=== PATIENT | female | born 1950 | race Caucasian/White ===

== ENCOUNTER 2024-02-25 23:57 | Emergency (ER) | payer OTHER ==
[~2024-02-25] VITALS: Ht 157.5 cm; Wt 75.7 kg
[2024-02-26] MEDS: 0.9%NACL 1000ML 1,000 ML IV ONE (00:06)
[2024-02-26 00:29] VITALS: TEMP 98.8
[2024-02-26 00:39] LABS: BASOPHILS # (AUTO) 0.07 K/uL (0.00-0.20); BASOPHILS % (AUTO) 0.9 % (0.0-5.0); EOSINOPHILS # (AUTO) 0.51 K/uL (0.00-0.70); EOSINOPHILS % (AUTO) 6.5 % (0.0-8.0); IMMATURE GRANULOCYTE ABSOLUTE 0.01 K/uL (0-1); LYMPHOCYTES % (AUTO) 24.9 % (21.0-51.0); MEAN CORPUSCULAR HEMOGLOBIN 26.8 pg (27.0-33.0); MEAN CORPUSCULAR HGB CONC 31.4 g/dL (32.0-36.0); MEAN CORPUSCULAR VOLUME 85.3 fL (79-99); MONOCYTES # (AUTO) 0.7 K/uL (0.1-1.0); MONOCYTES % (AUTO) 9.1 % (3.0-13.0); NEUTROPHILS # (AUTO) 4.6 K/uL (1.8-7.7); NEUTROPHILS % (AUTO) 58.5 % (40.0-77.0); PLATELET COUNT (AUTO) 219 K/uL (130-400); RED CELL DISTRIBUTION WIDTH 15.9 % (11.0-15.5); WHITE BLOOD COUNT (AUTO) 7.8 K/uL (4.8-10.8)
[2024-02-26 00:43] LABS: CREATININE 1.2 mg/dL (0.5-1.0); POTASSIUM 3.8 mmol/L (3.5-5.1)
[2024-02-26] MEDS: INSULIN humuLIN R 100 UNIT/ML 3ML IV ONE (01:17)
[2024-02-26 03:49] VITALS: BP 125/62; PULSE 72; RESP 18; O2SAT 99
== END 2024-02-26 03:51 ==
LOC: EDH 23:57
DX: E11.65 Type 2 diabetes mellitus with hyperglycemia (principal); D64.9 Anemia, unspecified; E87.1 Hypo-osmolality and hyponatremia; E87.8 Other disorders of electrolyte and fluid balance, not elsewhere classified; E03.9 Hypothyroidism, unspecified; I10 Essential (primary) hypertension
CPT/HCPCS: 99284; 80048; 85025; 82948 ×2; 36415; 96374; 96361; J1815; J7030

== ENCOUNTER 2025-01-24 13:08 | Inpatient (IN) | payer OTHER ==
[~2025-01-24] VITALS: Ht 162.6 cm; Wt 84.4 kg
[~2025-01-24 13:08] MED LIST: AMLO-257 PO; ATOR40TA69 PO; CLOP75TA32 PO; GABA-529 PO; INSU100I24 SQ; INSU500V SQ; LEVO50TA11 PO; METF-1150 PO; MONT-39 PO; NITR100C4 PO
[2025-01-24] MEDS ORDERED: 0.9%NACL 1000ML 1,000 ML IV SCH (13:30)
[2025-01-24] MEDS: 0.9%NACL 1000ML 1,000 ML IV ONE ×2 (13:31→15:03)
[2025-01-24 13:44] LABS: IMMATURE GRANULOCYTE ABSOLUTE 0.01 K/uL (0-1); NUCLEATED RED BLOOD CELLS 0.0 % (0.0-0.19); PLATELET COUNT (AUTO) 162 K/uL (130-400); RED BLOOD CELL COUNT(AUTO) 4.31 MIL/uL (4.00-5.50); RED CELL DISTRIBUTION WIDTH 19.2 % (11.0-15.5); WHITE BLOOD COUNT (AUTO) 4.5 K/uL (4.8-10.8)
[2025-01-24 13:55] LABS: INR 0.97 (0.85-1.15)
[2025-01-24 14:05] LABS: ASPARTATE AMINOTRANSFERASE 25.0 U/L (10-37); CREATINE KINASE, TOTAL 96.0 U/L (21-232); GLUCOSE,RANDOM 153.0 mg/dL (70-105); SODIUM SERUM 130.0 mmol/L (136-145); TOTAL PROTEIN, SERUM 6.7 g/dL (6.0-8.3)
[2025-01-24 14:19] LABS: UREA NITROGEN, BLOOD 42.0 mg/dL (7-18)
[2025-01-24 14:20] LABS: CREATININE 2.0 mg/dL (0.5-1.0); GLOMERULAR FILTR. RATE CALC 26.0 mL/min (>90)
--- NOTE | 2025-01-24 14:35 | EKG ---
[facility] Test Date: 2025-01-24 Test Time: 13:33:34 Pat Name: TALI HERNANDEZ Department: EDH Room: ED Gender: F [employer] Manager: [id number] : 1950 Requested By: PURNIMA GALICIA Order Number: [id number] Reading MD: Maria E Lamb Measurements Intervals [place] Rate: 63 P: 19 VT: 167 QRS: -1 QRSD: 86 T: 172 QT: 441 QTc: 451 Interpretive Statements Sinus rhythm Compared to ECG 09/08/2024 17:44:31 T-wave abnormality no longer present Electronically Signed On 01-25-2025 14:07:32 CDT by Maria E Lamb Please click the below link to view image of tracing.
--- NOTE | 2025-01-24 14:56 | HMCIMG ---
CLINICAL INFORMATION gbw COMPARISON None. TECHNIQUE Frontal view chest. FINDINGS Lines and tubes: None Lungs: Low lung volumes with bronchovascular crowding but without focal consolidation. Pleura: Unremarkable. No effusion or pneumothorax. Cardiomediastinal Silhouette: Unremarkable. Bones: Normal for age. Soft Tissues: Normal. IMPRESSION Low lung volumes with bronchovascular crowding but without focal consolidation. /[place]
--- NOTE | 2025-01-24 15:49 | HP ---
[facility] HISTORY AND PHYSICAL Date of Service: Jan 24, 2025 Time of Service: 15:49 HISTORY OF PRESENT ILLNESS: [ ] Admission date 01/24/2025 PCP Manuel Alas MD Chief complaint body ache general body weakness This is a 74-year-old female was brought in by EMS patient resides in senior living [place]. She presents in ED with general body weakness on arrival she was hypotensive ER initiated fluid resuscitation improved blood pressure significantly. Patient reports she was diagnosed of COVID-19 five days ago and she has been having diarrhea for the past four days. She presents with a BUN42 and creatinine of 2.0 severe dehydrated. Patient is denies chest pain she does appear dyspneic during our conversation patient's D-dimer was elevated we will get a CT chest. The patient has a history of stroke with right side weakness ol REVIEW OF SYSTEMS A14 point ROS was obtained all relevant positives were documented otherwise ROS negative PAST MEDICAL HISTORY: [ ] diabetes type 2 , hypertension, hyperlipidemia, CAD hypothyroidism stroke with right-sided weakness left buttock stage 2 pressure ulcer [ ] Left knee surgery PAST SOCIAL HISTORY: [ ] Denies smoking tobacco products and alcohol use. FAMILY HISTORY: [ ] Noncontributory Coded Allergies: No Known Allergies (Unverified Allergy, Unknown, 02/23/24) PHYSICAL EXAM GENERAL APPEARANCE: The patient is awake, alert, and oriented, in no acute cardiopulmonary distress. NEUROLOGICAL: Cranial nerves II-XII grossly intact. Motor is 5/5 in bilateral upper and lower extremities proximal to distal. No sensory deficits. HEENT: Face is symmetric. Pupils are equal and reactive. Extraocular movements are intact. NECK: Supple. No JVD. No thyromegaly. No submental, submandibular, pre- /postauricular, occipital or supraclavicular lymphadenopathy. CHEST: Normal chest expansion. No Telemetry. LUNGS: Absence of any rales, rhonchi or any wheezing. CARDIOVASCULAR: Regular. S1 and S2 normal. No appreciable rubs, murmurs or gallops. ABDOMEN: Soft, nontender, and nondistended. There is no rebound, voluntary guarding, or rigidity. : Deferred. No Rinaldi. EXTREMITIES: Non-edematous and not cyanotic. No clubbing. Good capillary refill. SKIN: No skin breakdown. Vital Sign (Last 24 Hours) 01/24/25 15:00 Pulse 62 Resp 20 B/P (MAP) 133/71 Pulse Ox 95 O2 Delivery Room Air* O2 Flow Rate 0 FiO2 21 LABS: Laboratory: Test 01/24/25 13:34 Range/Units White Blood Count 4.5 L 4.8-10.8 K/uL Red Blood Count 4.31 4.00-5.50 MIL/uL Hemoglobin 12.0 12.0-16.0 g/dL Hematocrit 39.2 36-48 % Mean Corpuscular Volume 91.0 79-99 fL Mean Corpuscular Hemoglobin 27.8 27.0-33.0 pg Mean Corpuscular Hemoglobin Concent 30.6 L 32.0-36.0 g/dL Red Cell Distribution Width 19.2 H 11.0-15.5 % Platelet Count 162 130-400 K/uL Mean Platelet Volume 11.9 H 7.5-10.5 fL Immature Granulocyte % (Auto) 0.2 0-1 % Neutrophils (%) (Auto) 61.3 40.0-77.0 % Lymphocytes (%) (Auto) 26.6 21.0-51.0 % Monocytes (%) (Auto) 9.3 3.0-13.0 % Eosinophils (%) (Auto) 2.2 0.0-8.0 % Basophils (%) (Auto) 0.4 0.0-5.0 % Neutrophils # (Auto) 2.8 1.8-7.7 K/uL Lymphocytes # (Auto) 1.2 1.0-4.8 K/uL Monocytes # (Auto) 0.4 0.1-1.0 K/uL Eosinophils # (Auto) 0.10 0.00-0.70 K/uL Basophils # (Auto) 0.02 0.00-0.20 K/uL Absolute Immature Granulocyte (auto 0.01 0-1 K/uL Nucleated Red Blood Cells 0.0 0.0-0.19 % Prothrombin Time 10.3 9.6-11.6 SEC Prothromb Time International Ratio 0.97 0.85-1.15 Activated Partial Thromboplast Time 29.3 26.3-35.5 SEC D-Dimer Quantitative (PE/DVT) 732 *H 0-500 ng/mL Sodium Level 130 L 136-145 mmol/L Potassium Level 3.7 3.5-5.1 mmol/L Chloride Level 99 L 101-111 mmol/L Carbon Dioxide Level 21 21-32 mmol/L Blood Urea Nitrogen 42 H 7-18 mg/dL Creatinine 2.0 H 0.5-1.0 mg/dL Glomerular Filtration Rate Calc 26 >90 mL/min Random Glucose 153 H 70-105 mg/dL Lactic Acid Level 1.9 0.8-2.5 mmol/L Total Calcium 7.8 L 8.5-10.1 mg/dL Total Bilirubin 0.4 0.2-1.0 mg/dL Direct Bilirubin 0.1 0.0-0.3 mg/dL Aspartate Amino Transf (AST/SGOT) 25 10-37 U/L Alanine Aminotransferase (ALT/SGPT) 18 12-78 U/L Alkaline Phosphatase 103 50-136 U/L Total Creatine Kinase 96 21-232 U/L Troponin I High Sensitivity 25 4-50 ng/L Total Protein 6.7 6.0-8.3 g/dL Albumin 3.2 L 3.5-5.0 g/dL Current Medications Medications (Trade) Dose Ordered Sig/Angelica Route PRN Reason Start Time Stop Time Status Last Admin Dose Admin Ceftriaxone Sodium (Rocephin 2gm Inj) 2 gm ONCE IVPB 01/24/25 13:30 01/24/25 13:19 DC Sodium Chloride 1,000 ml @ 0 mls/hr ONCE IV 01/24/25 13:30 01/24/25 13:19 DC DIAGNOSTICS / RADIOLOGY: [ ] REASON: gbw ORDERING PHYSICIAN: PURNIMA GALICIA MD PROCEDURE: CXR1VW - CHEST 1VW CLINICAL INFORMATION gbw COMPARISON None. TECHNIQUE Frontal view chest. FINDINGS Lines and tubes: None Lungs: Low lung volumes with bronchovascular crowding but without focal consolidation. Pleura: Unremarkable. No effusion or pneumothorax. Cardiomediastinal Silhouette: Unremarkable. Bones: Normal for age. Soft Tissues: Normal. IMPRESSION Low lung volumes with bronchovascular crowding but without focal consolidation. ASSESSMENT: SIRS with organ dysfunction POA Elevated D-dimer rule out PE CHACE secondary to dehydration POA Acute gastroenteritis diarrhea POA Electrolyte derangement hyponatremia, POA Hypoglycemic POA COVID-19 infection Generalized body weakness CVA with residual right hemiplegia Immobility secondary CVA with residual right hemiplegia POA left buttock stage 2 pressure ulcer, POA Chronic problems diabetes, type 2 hypertension, hyperlipidemia, CAD hypot hyroidism PLAN: [ ] Admit: Medical-surgical floor condition: Guarded Status: Full code IVF: Banana bag 100 mL/hour Consultants none at this time Antibiotics: Rocephin1 g every 24 hours Oxygen supplemental to keep O2 sats above 92%. Imaging CT chest and Doppler studies lower extremities Test: Stool PCR Labs cbc, cmp, mag+ TSH lipid Replace electrolytes as needed as per protocol to keep potassium above 4.0 magnesium 2.0. Home medications pending to be reviewed by RN nurse. Fall precautions, decubitus precautions offloading reposition every 2 hours PT services to eval and treat PRN: MEDICATIONS Tylenol 650 mg po every 4 hrs for fever Zofran 4 mg IV every 6 hrs for n/v Hydralazine 5 mg IV every 4 hrs systolic pressure > 160 bowel regiment: lactulose 20 gm PO BID PRN constipation Pain management: Supportive measures: DVT ppx, GI ppx all questions answered time spent: > 35 min Supervising MD: c/d Case management for discharge planning This document was generated in part using voice recognition software, occasional wrong word or sound alike substitutions may have occurred due to the inherent limitations of voice recognition software. Read the chart carefully and recognize using context, where the substitutions have occurred. Although every effort was made to edit the content, facing baster jumpbasting and typing errors may occur ADVANCED CARE PLANNING 1. Which of the following were discussed? Hospice Care - Yes / No Therapeutic options - Yes / No Advance Directives - Yes / No Other discussions - 2. Discussed with who? 3. Voluntary nature of this service was explained to the patient? Yes / No 4. Amount of time spent - 5. Reviewed by Physician? (if this service was performed by NPP) Yes / No ATTESTATION BY PHYSICIAN I have seen and examined the patient. I reviewed the documentation, medical decision making, and treatment plan as noted by the mid-level provider above. I agree with the findings and plan of care. SONY MURCIA MD, ELIZABETH NP Jan 24, 2025 15:49
[2025-01-24] MEDS ORDERED: LACTULOSE 20 GM/30 ML UDCUP PO PRN (16:00)
[2025-01-24] MEDS ORDERED: PoTASSium chloRIDE 20MEQ ER 20 MEQ ERTAB PO PRN (16:00)
[2025-01-24] MEDS ORDERED: MAGNESIUM 2GM PREMIX 50ML 50 ML IV PRN ×2 (16:00→16:30)
[2025-01-24] MEDS ORDERED: PoTASSium chl 10% ELIXIR 20MEQ 20 MEQ/15 ML UDCUP PO PRN (16:00)
--- NOTE | 2025-01-24 16:15 | ERN ---
ED Note History of Present Illness Stated Complaint: GBW, HYPOGLYCEMIA, HYPOTENSION Chief Complaint: Multiple Complaints Time Seen by MD: 13:09 Dictation: 74-year-old female presenting to the emergency department with generalized weakness hypotension and low sugar readings after pain sick with COVID-19 over the past few days called EMS transported improved with IV fluids and dextrose drip Allergies: Coded Allergies: No Known Allergies (Unverified Allergy, Unknown, 02/23/24) Home Meds Active Scripts Nitrofurantoin Monohyd/M-Cryst (Macrobid 100 mg Capsule) 100 Mg Capsule, 1 CAP PO BID for 7 Days, #14 CAP 0 Refills Prov:KEN LOUIE MD 12/12/24 Reported Medications Insulin Regular, Human (Humulin R) 500 Unit/Ml (Concentrated) Vial, 5 UNITS SQ TIDMEALS, VIAL 12/09/24 Insulin Degludec (Tresiba Flextouch U-100) 100 Unit/Ml (3 Ml) Insuln.pen, 25 UNIT SQ DAILYDINNER, SYRINGE 09/08/24 Montelukast Sodium (Montelukast Sodium) 10 Mg Tablet, 1 TAB PO DAILY for 30 Days, #30 TAB 0 Refills 09/08/24 Metformin HCl (Metformin HCl ER) 500 Mg [id number], 1 TAB PO DAILY for diabetes for 30 Days, #30 TAB 0 Refills 09/08/24 Levothyroxine Sodium (Levothyroxine Sodium) 50 Mcg Tablet, 1 TAB PO DAILY for 30 Days, #30 TAB 0 Refills 09/08/24 Gabapentin (Gabapentin) 100 Mg Capsule, 1 CAP PO TID for 30 Days, #90 CAP 0 Refills 09/08/24 Clopidogrel Bisulfate (Clopidogrel) 75 Mg Tablet, 1 TAB PO DAILY for 30 Days, #30 TAB 0 Refills 09/08/24 Atorvastatin Calcium (LIPITOR) 40 Mg Tablet, 1 TAB PO HS for 30 Days, #30 TAB 0 Refills 09/08/24 Amlodipine Besylate (Amlodipine Besylate) 5 Mg Tablet, 1 TAB PO DAILY for 30 Days, #30 TAB 0 Refills 09/08/24 Past Medical History Past Medical History: Diabetes-Type II, High Cholesterol, Hypertension, Hypothyroid, Renal Disese Additional Past Medical Hx: FLACCID HEMIPLEGIA AFFECTING RIGHT SIDE Surgical History: Family History: Negative Social History: Negative History: Not Applicable Review of System Dictation Constitutional: Per HPI Eyes: Negative for injury, pain,redness, and discharge ENT: Negative for injury,pain or swelling Cardiovascular: Negative for chest pain, palpitations, and edema Respiratory: Negative for shortness of breath, cough, and wheezing, Abdomen/GI: Per HPI Back: Negative for injury and pain : Negative for injury, bleeding and discharge MS/Extremity: Negative for injury and deformity Skin: Negative for rash, and discoloration Neuro: . per HPI Initial Vital Sign VS Vital Signs Date Time Temp Pulse Resp B/P (MAP) Pulse Ox O2 Delivery O2 Flow Rate FiO2 01/24/25 13:10 73 18 61/38 Nasal Cannula 2.0 01/24/25 13:54 98 28 Physical Exam Dictation General: awake, alert, appears weak and dehydrated Head/Face: Normocephalic, atraumatic Eyes: PERRL, EOMI, vision at baseline ENT: oral cavity clear, TMs clear, no signs of infection Neck: Trachea midline, supple, no nuchal rigidity Cardiovascular: RRR, normal S1/S2, No MRGs, no JVD Respiratory: CTAB, no respiratory distress, No rales or wheezes Abdomen: Soft, non-tender, non-distended, normal bowel sounds, no guarding or rebound. Skin: Warm, dry, normal turgor, no rash MS/Extremity: Pulses equal, no cyanosis, neurovascular intact, FROM Neuro: COAx4, GCS 15, strength 5/5, CN 2-12 intact, normal cerebellar exam, normal gait, Psych: Normal behavior, mood, and affect normal Results (Laboratory/Radiology) Laboratory/Radiology Laboratory Tests Test 01/24/25 13:34 White Blood Count 4.5 K/uL (4.8-10.8) L Red Blood Count 4.31 MIL/uL (4.00-5.50) Hemoglobin 12.0 g/dL (12.0-16.0) Hematocrit 39.2 % (36-48) Mean Corpuscular Volume 91.0 fL (79-99) Mean Corpuscular Hemoglobin 27.8 pg (27.0-33.0) Mean Corpuscular Hemoglobin Concent 30.6 g/dL (32.0-36.0) L Red Cell Distribution Width 19.2 % (11.0-15.5) H Platelet Count 162 K/uL (130-400) Mean Platelet Volume 11.9 fL (7.5-10.5) H Immature Granulocyte % (Auto) 0.2 % (0-1) Neutrophils (%) (Auto) 61.3 % (40.0-77.0) Lymphocytes (%) (Auto) 26.6 % (21.0-51.0) Monocytes (%) (Auto) 9.3 % (3.0-13.0) Eosinophils (%) (Auto) 2.2 % (0.0-8.0) Basophils (%) (Auto) 0.4 % (0.0-5.0) Neutrophils # (Auto) 2.8 K/uL (1.8-7.7) Lymphocytes # (Auto) 1.2 K/uL (1.0-4.8) Monocytes # (Auto) 0.4 K/uL (0.1-1.0) Eosinophils # (Auto) 0.10 K/uL (0.00-0.70) Basophils # (Auto) 0.02 K/uL (0.00-0.20) Absolute Immature Granulocyte (auto 0.01 K/uL (0-1) Nucleated Red Blood Cells 0.0 % (0.0-0.19) Red Blood Cell Morphology See comments Prothrombin Time 10.3 SEC (9.6-11.6) Prothromb Time International Ratio 0.97 (0.85-1.15) Activated Partial Thromboplast Time 29.3 SEC (26.3-35.5) D-Dimer Quantitative (PE/DVT) 732 ng/mL (0-500) *H Sodium Level 130 mmol/L (136-145) L Potassium Level 3.7 mmol/L (3.5-5.1) Chloride Level 99 mmol/L (101-111) L Carbon Dioxide Level 21 mmol/L (21-32) Blood Urea Nitrogen 42 mg/dL (7-18) H Creatinine 2.0 mg/dL (0.5-1.0) H Glomerular Filtration Rate Calc 26 mL/min (>90) Random Glucose 153 mg/dL (70-105) H Lactic Acid Level 1.9 mmol/L (0.8-2.5) Total Calcium 7.8 mg/dL (8.5-10.1) L Total Bilirubin 0.4 mg/dL (0.2-1.0) Direct Bilirubin 0.1 mg/dL (0.0-0.3) Aspartate Amino Transf (AST/SGOT) 25 U/L (10-37) Alanine Aminotransferase (ALT/SGPT) 18 U/L (12-78) Alkaline Phosphatase 103 U/L (50-136) Total Creatine Kinase 96 U/L (21-232) Troponin I High Sensitivity 25 ng/L (4-50) Total Protein 6.7 g/dL (6.0-8.3) Albumin 3.2 g/dL (3.5-5.0) L Labs Reviewed?: Yes EKG: (+) NSR, (+) rhythm, (+) nonspecific ST T wave chg ED Course ED Course Orders Procedure Category Date Status Time 12 Lead Ekg Tracing- EKG 01/24/25 Complete Technical 13:12 Basic Metabolic Panel LAB 01/24/25 Complete 13:12 Blood Cult CHANTALE 01/24/25 In Process 13:12 Cbc With Differential LAB 01/24/25 Complete 13:12 Hepatic Function Panel LAB 01/24/25 Complete 13:12 Creatine Kinase, Total LAB 01/24/25 Complete 13:12 Lactic Acid LAB 01/24/25 Complete 13:12 Troponin I High LAB 01/24/25 Complete Sensitivity 13:12 Urinalysis Profile LAB 01/24/25 Logged 13:12 Pt And Ptt LAB 01/24/25 Complete 13:12 Chest 1vw RAD 01/24/25 Resulted 13:12 D-Dimer LAB 01/24/25 Complete 13:12 0.9%Nacl 1000ml (Ns PHA 01/24/25 Complete 1000ml) 13:30 Ceftriaxone 2gm Vial PHA 01/24/25 Complete (Rocephin 2gm Inj) 13:30 0.9%Nacl 1000ml (Ns PHA 01/24/25 Complete 1000ml) 13:30 Ceftriaxone 2gm Vial PHA 01/24/25 Complete (Rocephin 2gm Inj) 13:30 0.9%Nacl 1000ml (Ns PHA 01/24/25 Complete 1000ml) 13:30 Admit Orders ADM 01/24/25 Transmitted 15:43 Apply Scds CPOE 01/24/25 Transmitted 15:43 Heart Healthy Diet DIET 01/24/25 Transmitted Dinner Acetaminophen 325 Tab PHA 01/24/25 In Process (Tylenol 325mg Tab 16:00 Pantoprazole 40mg Inj PHA 01/25/25 In Process (Protonix 40mg Inj 09:00 Lactulose 20 Gm/30 Ml PHA 01/24/25 In Process Udcup (Constulose 16:00 Hydralazine 20mg Inj PHA 01/24/25 In Process (Apresoline 20mg In 16:00 Ceftriaxone 1g Vial PHA 01/25/25 In Process (Rocephine 1g Inj) 16:00 Initiate Po ESTEFANY 01/24/25 In Process Hypokalemia Protoc 15:43 Potassium Chloride PHA 01/24/25 In Process 20meq/100ml ([place] 16:00 Potassium Chl 10% PHA 01/24/25 In Process Elixir 20meq (Kcl 10% 16:00 Potassium Chloride PHA 01/24/25 In Process 20meq Er (K-Dur/Klor- 16:00 Notify Physician If CPOE 01/24/25 Transmitted There Is 15:43 Notify Md On The Next CPOE 01/24/25 Transmitted 15:43 Notify Md On The CPOE 01/24/25 Transmitted Next(Cont.) 15:43 Magnesium 2gm Premix PHA 01/24/25 In Process 50ml (Magnesium 2gm 16:00 M.V.I. Iv [Adult] PHA 01/24/25 In Process (M.V.I. Iv [Adult])... 18:00 Current Medications Medications (Trade) Dose Ordered Sig/Angelica Route PRN Reason Start Time Stop Time Status Last Admin Dose Admin Acetaminophen (TYLenol 325MG TAB) 650 mg Q4H PRN PO TEMPERATURE GREATER THAN 101.5 01/24/25 16:00 02/23/25 15:59 Ceftriaxone Sodium (ROCEphine 1G INJ) 1 gm Q24H IVPB 01/25/25 16:00 02/04/25 15:59 Ceftriaxone Sodium (Rocephin 2gm Inj) 2 gm ONCE IVPB 01/24/25 13:30 01/24/25 13:19 DC Ceftriaxone Sodium (Rocephin 2gm Inj) 2 gm ONCE ONCE IVPB 01/24/25 13:30 01/24/25 13:31 DC 01/24/25 15:03 Hydralazine HCl (APRESOLine 20MG INJ) 5 mg Q4H PRN IV ADMINISTER FOR SBP > 160 01/24/25 16:00 02/23/25 15:59 Lactulose (Constulose 20gm/ 30ml Udcup) 20 gm BID PRN PO CONSTIPATION 01/24/25 16:00 02/23/25 15:59 Magnesium Sulfate 50 ml @ 0 mls/hr PROTOCOL PRN IV low mag level 01/24/25 16:00 02/23/25 15:59 Multivitamins/ Minerals 10 ml/ Folic Acid 1 mg/ Thiamine HCl 100 mg/Sodium Chloride 1,010 ml @ 100 mls/hr DAILY IV 01/24/25 18:00 02/23/25 17:59 Pantoprazole Sodium (PROTonix 40MG INJ) 40 mg DAILY IVP 01/25/25 09:00 02/24/25 08:59 Potassium Chloride 100 ml @ 100 mls/hr AD PRN IV POTASSIUM PROTOCOL 01/24/25 16:00 02/23/25 15:59 Potassium Chloride (K-Dur/Klor-Con 20meq) 20 meq AD PRN PO POTASSIUM PROTOCOL 01/24/25 16:00 02/23/25 15:59 Potassium Chloride (KCl 10% Elixir 20meq/15ml) 20 meq AD PRN PO POTASSIUM PROTOCOL 01/24/25 16:00 02/23/25 15:59 Sodium Chloride 1,000 ml @ 0 mls/hr ONCE IV 01/24/25 13:30 01/24/25 13:19 DC Sodium Chloride 1,000 ml @ 0 mls/hr ONCE ONCE IV 01/24/25 13:30 01/24/25 13:31 DC 01/24/25 13:31 Sodium Chloride 1,000 ml @ 0 mls/hr ONCE ONCE IV 01/24/25 13:30 01/24/25 13:31 DC 01/24/25 15:03 Vital Signs Date Time Temp Pulse Resp B/P (MAP) Pulse Ox O2 Delivery O2 Flow Rate FiO2 01/24/25 15:00 62 20 133/71 95 Room Air* 0 21 01/24/25 13:54 60 18 101/45 98 Nasal Cannula* 2 28 01/24/25 13:10 73 18 61/38 Nasal Cannula 2.0 Medical Decision Making MDM MDM: Differential diagnosis: Rationale: Tests considered and ordered secondary to shared decision making include: labs, ECG and radiology Previous outside records reviewed: Old ER visits. Risk of complication and/or morbidity or mortality of patient management: None Medications-Per medication reconciliation Need for hospitalization: Patient does meet criteria for hospitalization. Need for emergency major/minor surgery: No There are no social concerns with this patient. Prescription drug management Prescriptions will include symptomatic care Patient's prior external medical records from other ER visits were reviewed by me as indicated. Prior testing and results from previous visits were reviewed. Prior tests were taken into account with medical decision making and resource utilization, independent historian/historians were used to obtain complete medical history. I independently interpreted the test that were performed, results were reviewed by me and considered findings on radiology if ordered. Medical management and examination interpretation discussions were had by me with other qualified healthcare professionals as indicated for the patient's care. 74-year-old female with COVID-19 acute dehydration and hypotension, symptoms improved with IV fluids blood pressure now normalized admitting to Medicine for further care and evaluation. Critical Care Note Comment(s) Total critical care time was 33 minutes. Excluding time for procedures. Management of critically ill patient with concern for acute decompensation. Management included interpretation of laboratory values and imaging, hemodynamics, time for consultation with consultants and admitting physician. DX & DISP Disposition: Inpatient Departure Impression: Primary Impression: Acute kidney injury Additional Impressions: Hypotension, SARS-CoV-2 positive Condition: Stable Referrals: LIZBETH MARIE MD (PCP) PURNIMA GALICIA MD Jan 24, 2025 16:15
[2025-01-24] MEDS ORDERED: GLUCAGON 1MG KIT 1 MG ML IM PRN (16:30)
[2025-01-24] MEDS: M.V.I. IV [ADULT] 10 ML, FOLic ACID 5 MG/ML VIAL 1 MG, THIAMINE HCL 100 MG in 0.9%NACL ... IV SCH (18:52)
[2025-01-25] MEDS ORDERED: METF-526 PO (01:10)
[2025-01-25] MEDS ORDERED: ATOR40TA71 PO (01:10)
[2025-01-25] MEDS ORDERED: LOSA1TAB42 PO (01:10)
[2025-01-25] MEDS ORDERED: GABA-529 PO (01:10)
[2025-01-25] MEDS ORDERED: INSU100V3 SQ (01:10)
[2025-01-25] MEDS ORDERED: LEVO5TAB13 PO (01:10)
[2025-01-25] MEDS ORDERED: TIRZ2.5P SQ (01:10)
[2025-01-25] MEDS ORDERED: AMLO-257 PO (01:10)
[2025-01-25] MEDS ORDERED: MONT-39 PO (01:10)
[2025-01-25] MEDS ORDERED: INSU100I24 SQ (01:10)
[2025-01-25] MEDS ORDERED: CLOP75TA32 PO (01:10)
[2025-01-25 01:42] LABS: APPEARANCE,URINE CLOUDY (CLEAR); GLUCOSE, URINE (UA) NEGATIVE (NEGATIVE); LEUKOCYTE ESTERASE ,URINE 250 Leu/uL (NEGATIVE); NITRATE,URINE NEGATIVE (NEGATIVE); OCCULT BLOOD,URINE NEGATIVE (NEGATIVE)
[2025-01-25 01:44] LABS: ADD UA MICROSCOPIC YES
[2025-01-25 01:58] LABS: SQUAMOUS EPITHELIAL CELL,UR RARE /HPF (0-2)
[2025-01-25 06:21] LABS: IMMATURE GRANULOCYTE ABSOLUTE 0.01 K/uL (0-1); NUCLEATED RED BLOOD CELLS 0.0 % (0.0-0.19); PLATELET COUNT (AUTO) 156 K/uL (130-400); RED BLOOD CELL COUNT(AUTO) 3.86 MIL/uL (4.00-5.50); RED CELL DISTRIBUTION WIDTH 19.0 % (11.0-15.5); WHITE BLOOD COUNT (AUTO) 3.6 K/uL (4.8-10.8)
--- NOTE | 2025-01-25 06:34 | HMCIMG ---
EXAMINATION: SPECTRAL DOPPLER ULTRASOUND EXAMINATION OF THE BILATERAL LOWER EXTREMITY VEINS. CLINICAL HISTORY: Elevated D-dimer. COMPARISON: None provided. TECHNIQUE: Real-time ultrasound scan of the veins of the bilateral lower extremity with color Doppler flow, spectral waveform analysis and compression. FINDINGS: DEEP VEINS: The common femoral, superficial femoral, and left popliteal veins are echolucent and compressible. There is normal color Doppler flow throughout. The visualized calf veins appear patent. The right popliteal vein is not well visualized. SUPERFICIAL VEINS: The greater saphenous veins are patent and compressible. SOFT TISSUES: No popliteal fossa cyst or other abnormalities. IMPRESSION: No deep venous thrombosis evident in the bilateral lower extremities. No superficial thrombophlebitis in the bilateral lower extremities. /[place]
[2025-01-25 06:47] LABS: ASPARTATE AMINOTRANSFERASE 19.0 U/L (10-37); CREATININE 1.1 mg/dL (0.5-1.0); GLOMERULAR FILTR. RATE CALC 53.0 mL/min (>90); GLUCOSE,RANDOM 80.0 mg/dL (70-105); LDL DIRECT 51.0 mg/dL (0-99); SODIUM SERUM 141.0 mmol/L (136-145); TOTAL PROTEIN, SERUM 6.4 g/dL (6.0-8.3); UREA NITROGEN, BLOOD 29.0 mg/dL (7-18)
--- NOTE | 2025-01-25 09:26 | PN ---
[facility] PROGRESS NOTE Date of Service: Jan 25, 2025 Time of Service: 09:21 SUBJECTIVE: [ ] Admission date 01/24/2025 PCP Manuel Alas MD Chief complaint body ache general body weakness This is a 74-year-old female was brought in by EMS patient resides in [facility] [place]. She presents in ED with general body weakness on arrival she was hypotensive ER initiated fluid resuscitation improved blood pressure significantly. Patient reports she was diagnosed of COVID-19 five days ago and she has been having diarrhea for the past four days. She presents with a BUN42 and creatinine of 2.0 severe dehydrated. Patient is denies chest pain she does appear dyspneic during our conversation patient's D-dimer was elevated we will get a CT chest. The patient has a history of stroke with right side weakness ol 01/25/2025 the patient remains in ER reviewed labs potassium 3.0 creatinine improved significantly to 1.1 From 2.0. Patient denied chest pain or shortness for breath we will continue to monitor patient closely REVIEW OF SYSTEMS A14 point ROS was obtained all relevant positives were documented otherwise ROS negative PHYSICAL EXAM GENERAL APPEARANCE: The patient is awake, alert, and oriented, in no acute cardiopulmonary distress. NEUROLOGICAL: Cranial nerves II-XII grossly intact. Motor is 5/5 in bilateral upper and lower extremities proximal to distal. No sensory deficits. HEENT: Face is symmetric. Pupils are equal and reactive. Extraocular movements are intact. NECK: Supple. No JVD. No thyromegaly. No submental, submandibular, pre- /postauricular, occipital or supraclavicular lymphadenopathy. CHEST: Normal chest expansion. No Telemetry. LUNGS: Absence of any rales, rhonchi or any wheezing. CARDIOVASCULAR: Regular. S1 and S2 normal. No appreciable rubs, murmurs or gallops. ABDOMEN: Soft, nontender, and nondistended. There is no rebound, voluntary guarding, or rigidity. : Deferred. No Rinaldi. EXTREMITIES: Non-edematous and not cyanotic. No clubbing. Good capillary refill. SKIN: No skin breakdown. Vital Signs (last 8hr) Date Time Temp Pulse Resp B/P (MAP) Pulse Ox O2 Delivery O2 Flow Rate FiO2 01/25/25 07:29 98.2 57 19 131/70 Room Air* 0 21 01/25/25 04:55 98.4 118 11 122/67 96 Room Air* 0 21 LABS: Laboratory: Test 01/25/25 06:00 01/25/25 01:32 01/24/25 19:04 01/24/25 13:34 Range/Units White Blood Count 3.6 L 4.8-10.8 K/uL Red Blood Count 3.86 L 4.00-5.50 MIL/uL Hemoglobin 10.8 L 12.0-16.0 g/dL Hematocrit 35.0 L 36-48 % Mean Corpuscular Volume 90.7 79-99 fL Mean Corpuscular Hemoglobin 28.0 27.0-33.0 pg Mean Corpuscular Hemoglobin Concent 30.9 L 32.0-36.0 g/dL Red Cell Distribution Width 19.0 H 11.0-15.5 % Platelet Count 156 130-400 K/uL Mean Platelet Volume 11.8 H 7.5-10.5 fL Immature Granulocyte % (Auto) 0.3 0-1 % Neutrophils (%) (Auto) 54.3 40.0-77.0 % Lymphocytes (%) (Auto) 32.2 21.0-51.0 % Monocytes (%) (Auto) 8.7 3.0-13.0 % Eosinophils (%) (Auto) 4.2 0.0-8.0 % Basophils (%) (Auto) 0.3 0.0-5.0 % Neutrophils # (Auto) 1.9 1.8-7.7 K/uL Lymphocytes # (Auto) 1.2 1.0-4.8 K/uL Monocytes # (Auto) 0.3 0.1-1.0 K/uL Eosinophils # (Auto) 0.15 0.00-0.70 K/uL Basophils # (Auto) 0.01 0.00-0.20 K/uL Absolute Immature Granulocyte (auto 0.01 0-1 K/uL Nucleated Red Blood Cells 0.0 0.0-0.19 % Sodium Level 141 136-145 mmol/L Potassium Level 3.0 *L 3.5-5.1 mmol/L Chloride Level 107 101-111 mmol/L Carbon Dioxide Level 25 21-32 mmol/L Blood Urea Nitrogen 29 H 7-18 mg/dL Creatinine 1.1 H 0.5-1.0 mg/dL Glomerular Filtration Rate Calc 53 >90 mL/min Random Glucose 80 70-105 mg/dL Total Calcium 7.3 L 8.5-10.1 mg/dL Magnesium Level 1.70 L 1.80-2.40 mg/dL Total Bilirubin 0.3 # 0.2-1.0 mg/dL Aspartate Amino Transf (AST/SGOT) 19 10-37 U/L Alanine Aminotransferase (ALT/SGPT) 19 12-78 U/L Alkaline Phosphatase 91 50-136 U/L Total Protein 6.4 6.0-8.3 g/dL Albumin 2.9 L 3.5-5.0 g/dL Triglycerides Level 172 30-200 mg/dL Cholesterol Level 108 <200 mg/dL LDL Cholesterol 51 0-99 mg/dL HDL Cholesterol 34 L 35-85 mg/dL Thyroid Stimulating Hormone (TSH) 3.87 H 0.36-3.74 uIU/mL Urine Color YELLOW YELLOW Urine Appearance CLOUDY H CLEAR Urine pH 5.0 5.0-8.0 Urine Specific [place] 1.011 1.001-1.031 Urine Protein NEGATIVE NEGATIVE mg/dL Urine Glucose (UA) NEGATIVE NEGATIVE mg/dL Urine Ketones NEGATIVE NEGATIVE mg/dL Urine Occult Blood NEGATIVE NEGATIVE Urine Nitrate NEGATIVE NEGATIVE Urine Bilirubin NEGATIVE NEGATIVE mg/dL Urine Urobilinogen 0.2 0.2-1.0 mg/dL Urine Leukocyte Esterase 250 H NEGATIVE Indigo/uL Urine RBC 2-5 H 0-1 /HPF Urine WBC 11-25 H 0-1 /HPF Urine Squamous Epithelial Cells RARE 0-2 /HPF Urine Bacteria MANY None Seen /HPF Urine Hyaline Casts 2-5 H 0-1 /LPF /LPF Whole Blood Glucose 123 H 70-110 MG/DL Red Blood Cell Morphology See comments Prothrombin Time 10.3 9.6-11.6 SEC Prothromb Time International Ratio 0.97 0.85-1.15 Activated Partial Thromboplast Time 29.3 26.3-35.5 SEC D-Dimer Quantitative (PE/DVT) 732 *H 0-500 ng/mL Lactic Acid Level 1.9 0.8-2.5 mmol/L Direct Bilirubin 0.1 0.0-0.3 mg/dL Total Creatine Kinase 96 21-232 U/L Troponin I High Sensitivity 25 4-50 ng/L Current Medications Medications (Trade) Dose Ordered Sig/Angelica Route PRN Reason Start Time Stop Time Status Last Admin Dose Admin Acetaminophen (TYLenol 325MG TAB) 650 mg Q4H PRN PO TEMPERATURE GREATER THAN 101.5 01/24/25 16:00 02/23/25 15:59 Ceftriaxone Sodium (ROCEphine 1G INJ) 1 gm Q24H IVPB 01/25/25 16:00 02/04/25 15:59 Ceftriaxone Sodium (Rocephin 2gm Inj) 2 gm ONCE IVPB 01/24/25 13:30 01/24/25 13:19 DC Dextrose (D50w) 50 ml AD PRN IV HYPOGLYCEMIA PROTOCOL 01/24/25 16:30 02/23/25 16:29 Glucagon (Glucagon 1mg Kit) 1 mg AD PRN IM HYPOGLYCEMIA PROTOCOL 01/24/25 16:30 02/23/25 16:29 Hydralazine HCl (APRESOLine 20MG INJ) 5 mg Q4H PRN IV ADMINISTER FOR SBP > 160 01/24/25 16:00 02/23/25 15:59 Lactulose (Constulose 20gm/ 30ml Udcup) 20 gm BID PRN PO CONSTIPATION 01/24/25 16:00 02/23/25 15:59 Magnesium Sulfate 50 ml @ 0 mls/hr PROTOCOL PRN IV low mag level 01/24/25 16:00 02/23/25 15:59 Magnesium Sulfate 50 ml @ 0 mls/hr PROTOCOL PRN IV Low magnesium level 01/24/25 16:30 02/23/25 16:29 Multivitamins/ Minerals 10 ml/ Folic Acid 1 mg/ Thiamine HCl 100 mg/Sodium Chloride 1,010 ml @ 100 mls/hr DAILY IV 01/24/25 18:00 02/23/25 17:59 01/24/25 18:52 100 MLS/HR Pantoprazole Sodium (PROTonix 40MG INJ) 40 mg DAILY IVP 01/25/25 09:00 02/24/25 08:59 Potassium Chloride 100 ml @ 100 mls/hr AD PRN IV POTASSIUM PROTOCOL 01/24/25 16:00 02/23/25 15:59 01/25/25 06:56 100 MLS/HR Potassium Chloride 100 ml @ 100 mls/hr AD PRN IV POTASSIUM PROTOCOL 01/24/25 16:30 02/23/25 16:29 Potassium Chloride (K-Dur/Klor-Con 20meq) 20 meq AD PRN PO POTASSIUM PROTOCOL 01/24/25 16:00 02/23/25 15:59 Potassium Chloride (K-Dur/Klor-Con 20meq) 20 meq AD PRN PO POTASSIUM PROTOCOL 01/24/25 16:30 02/23/25 16:29 Potassium Chloride (KCl 10% Elixir 20meq/15ml) 20 meq AD PRN PO POTASSIUM PROTOCOL 01/24/25 16:00 02/23/25 15:59 Potassium Chloride (KCl 10% Elixir 20meq/15ml) 20 meq AD PRN PO POTASSIUM PROTOCOL 01/24/25 16:30 02/23/25 16:29 Sodium Chloride 1,000 ml @ 0 mls/hr ONCE IV 01/24/25 13:30 01/24/25 13:19 DC DIAGNOSTICS / RADIOLOGY: [ ] ASSESSMENT: SIRS with organ dysfunction POA Elevated D-dimer rule out PE CHACE secondary to dehydration POA resolved Acute gastroenteritis diarrhea POA Electrolyte derangement hyponatremia, hypomagnesemia hypokalemia POA Hypoglycemic POA COVID-19 infection Generalized body weakness 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 Imaging CT chest pending results and Doppler studies lower extremities noted no DVT Test: Stool PCR pending Labs cbc, cmp, mag+ TSH lipid Replace electrolytes as needed as per protocol to keep potassium above 4.0 magnesium 2.0. Home medications pending to be reviewed by RN nurse. Fall precautions, decubitus precautions offloading reposition every 2 hours PT services to eval and treat PRN: MEDICATIONS Tylenol 650 mg po every 4 hrs for fever Zofran 4 mg IV every 6 hrs for n/v Hydralazine 5 mg IV every 4 hrs systolic pressure > 160 bowel regiment: lactulose 20 gm PO BID PRN constipation Pain management: Supportive measures: DVT ppx, GI ppx all questions answered time spent: > 35 min Supervising MD: Dr.Nick c/d Case management for discharge planning This document was generated in part using voice recognition software, occasional wrong word or sound alike substitutions may have occurred due to the inherent limitations of voice recognition software. Read the chart carefully and recognize using context, where the substitutions have occurred. Although every effort was made to edit the content, personal injury law specialist and typing errors may occur ADVANCED CARE PLANNING 1. Which of the following were discussed? Hospice Care - Yes / No Therapeutic options - Yes / No Advance Directives - Yes / No Other discussions - 2. Discussed with who? 3. Voluntary nature of this service was explained to the patient? Yes / No 4. Amount of time spent - 5. Reviewed by Physician? (if this service was performed by NPP) Yes / No ATTESTATION BY PHYSICIAN I have seen and examined the patient. I reviewed the documentation, medical decision making, and treatment plan as noted by the mid-level provider above. I agree with the findings and plan of care. OSNY MURCIA MD, ELIZABETH CONTENT PRODUCER Jan 25, 2025 09:26
[2025-01-25] MEDS ORDERED: COMPOUND IV REFRIGERATED 1 EACH IVSOLN MISC PRN (10:00)
--- NOTE | 2025-01-25 10:43 | HMCIMG ---
EXAM: CT Chest Without Contrast CLINICAL HISTORY: Elevated D-dimer. TECHNIQUE: Thin collimated axial CT images of the chest were obtained with sagittal and coronal reformatted images also submitted. CT scan done according to ALARA (As Low as Reasonably Achievable). CONTRAST USED: None. COMPARISON: X-ray dated December 09, 2024. FINDINGS: Mild atelectasis in both lower lobes, more on the right side. No collapse or consolidation. No pulmonary nodules. No pleural effusions. No pericardial effusion. The heart size is within normal limits. Calcification of the coronary arteries with atherosclerotic changes in the aorta. No axillary, supraclavicular, or mediastinal lymphadenopathy. No focal thyroid abnormality. Limited views of the upper abdomen demonstrate gall bladder sludge. The bones under view show degenerative spondylotic changes in the spine with scoliosis. IMPRESSION: 1. No pulmonary infiltrates or pleural effusions. Mild atelectasis in both lower lobes, more on the right side. 2. Coronary artery disease with atherosclerosis. 3. No suspicious lung nodule. Lung RADS category 1. Continue annual screening with LDCT. /[place]
[2025-01-25] MEDS: PoTASSium chl 10% ELIXIR 20MEQ 20 MEQ/15 ML UDCUP PO PRN (11:24)
--- NOTE | 2025-01-25 11:28 | NUR ---
Patient is running 20meq potassium at 20 meq an hr and is crying in pain from the burning. I have stopped the IV and gave her 20meq elixir to drink. She tolerated it well.
--- NOTE | 2025-01-25 12:59 | NUR ---
PT JUST NOW PLACED IN A [facility]ULAR [facility] BED IN ED 11.
--- NOTE | 2025-01-25 14:25 | NUR ---
DCP:[place] Pt is currently a resident at [place]. Pt states that she has a motorized wheelchair and hospital bed at home. Pt does require assistance from the staff in order to complete ADLs. PCP is Manuel Rodriguez and uses [facility] for any RX needs. At [place] pt will want to go back to [place] and will require assistance with transportation. Addendum: 01/25/25 at 1427 by YISEL JOHNSON SS Amended: Links added.
[2025-01-25 15:13] VITALS: BP 135/73; PULSE 62; RESP 19; TEMP 98.6
[2025-01-25] MEDS: FOLic ACID 5 MG/ML VIAL 1 MG, THIAMINE HCL 100 MG in 0.9%NACL 1000ML 1,000 ML IV SCH (18:22)
[2025-01-25 20:00] VITALS: BP 168/70; PULSE 66; RESP 18; TEMP 98.8
--- NOTE | 2025-01-25 22:25 | NUR ---
REPORT GIVEN TO MICHAEL HERRERA
[2025-01-25 23:40] VITALS: O2SAT 95
[2025-01-25 23:41] VITALS: BP 158/82; PULSE 70; RESP 18; TEMP 98.3
[2025-01-26 04:00] VITALS: BP 133/76; PULSE 68; RESP 17; TEMP 98.3
[2025-01-26 05:29] LABS: IMMATURE GRANULOCYTE ABSOLUTE 0.01 K/uL (0-1); NUCLEATED RED BLOOD CELLS 0.0 % (0.0-0.19); PLATELET COUNT (AUTO) 144 K/uL (130-400); RED BLOOD CELL COUNT(AUTO) 3.84 MIL/uL (4.00-5.50); RED CELL DISTRIBUTION WIDTH 18.7 % (11.0-15.5); WHITE BLOOD COUNT (AUTO) 3.4 K/uL (4.8-10.8)
[2025-01-26 05:43] LABS: ASPARTATE AMINOTRANSFERASE 16.0 U/L (10-37); CREATININE 0.7 mg/dL (0.5-1.0); GLOMERULAR FILTR. RATE CALC 92.0 mL/min (>90); GLUCOSE,RANDOM 167.0 mg/dL (70-105); SODIUM SERUM 140.0 mmol/L (136-145); TOTAL PROTEIN, SERUM 6.4 g/dL (6.0-8.3); UREA NITROGEN, BLOOD 14.0 mg/dL (7-18)
[2025-01-26] MEDS: MAGNESIUM 2GM PREMIX 50ML 50 ML IV SCH (06:37)
[2025-01-26 07:47] VITALS: BP 139/76; PULSE 69; RESP 16; TEMP 97.8
[2025-01-26 08:00] VITALS: O2SAT 98
[2025-01-26 11:47] VITALS: BP 151/76; PULSE 68; RESP 18; TEMP 98.3
--- NOTE | 2025-01-26 11:55 | PN ---
[facility] PROGRESS NOTE Date of Service: Jan 26, 2025 Time of Service: 11:50 SUBJECTIVE: [ ] Admission date 01/24/2025 PCP Manuel Alas MD Chief complaint body ache general body weakness This is a 74-year-old female was brought in by EMS patient resides in [facility]. She presents in ED with general body weakness on arrival she was hypotensive ER initiated fluid resuscitation improved blood pressure significantly. Patient reports she was diagnosed of COVID-19 five days ago and she has been having diarrhea for the past four days. She presents with a BUN42 and creatinine of 2.0 severe dehydrated. Patient is denies chest pain she does appear dyspneic during our conversation patient's D-dimer was elevated we will get a CT chest. The patient has a history of stroke with right side weakness ol 01/25/2025 the patient remains in ER reviewed labs potassium 3.0 creatinine improved significantly to 1.1 From 2.0. Patient denied chest pain or shortness for breath we will continue to monitor patient closely 01/26/25 patient is is asleep awakened per verbal stimuli. Afebrile diarrhea has someone subsided. Urine cultures waiting for final report. Patient we will be returning back to assisted living waiting for cultures. REVIEW OF SYSTEMS A14 point ROS was obtained all relevant positives were documented otherwise ROS negative PHYSICAL EXAM GENERAL APPEARANCE: The patient is awake, alert, and oriented, in no acute cardiopulmonary distress. NEUROLOGICAL: Cranial nerves II-XII grossly intact. Motor is 5/5 in bilateral upper and lower extremities proximal to distal. No sensory deficits. HEENT: Face is symmetric. Pupils are equal and reactive. Extraocular movements are intact. NECK: Supple. No JVD. No thyromegaly. No submental, submandibular, pre- /postauricular, occipital or supraclavicular lymphadenopathy. CHEST: Normal chest expansion. No Telemetry. LUNGS: Absence of any rales, rhonchi or any wheezing. CARDIOVASCULAR: Regular. S1 and S2 normal. No appreciable rubs, murmurs or gallops. ABDOMEN: Soft, nontender, and nondistended. There is no rebound, voluntary guarding, or rigidity. : Deferred. No Rinalid. EXTREMITIES: Non-edematous and not cyanotic. No clubbing. Good capillary refill. SKIN: No skin breakdown. Vital Signs (last 8hr) Date Time Temp Pulse Resp B/P (MAP) Pulse Ox O2 Delivery O2 Flow Rate FiO2 01/26/25 11:47 98.2 68 18 151/76 96 Room Air 01/26/25 08:00 98 Room Air* 0 21 01/26/25 07:47 97.9 69 16 139/76 95 Room Air 01/26/25 04:00 98.2 68 17 133/76 92 Room Air LABS: Laboratory: Test 01/26/25 05:17 01/25/25 06:00 01/25/25 01:32 01/24/25 13:34 Range/Units White Blood Count 3.4 L 4.8-10.8 K/uL Red Blood Count 3.84 L 4.00-5.50 MIL/uL Hemoglobin 10.8 L 12.0-16.0 g/dL Hematocrit 33.9 L 36-48 % Mean Corpuscular Volume 88.3 79-99 fL Mean Corpuscular Hemoglobin 28.1 27.0-33.0 pg Mean Corpuscular Hemoglobin Concent 31.9 L 32.0-36.0 g/dL Red Cell Distribution Width 18.7 H 11.0-15.5 % Platelet Count 144 130-400 K/uL Mean Platelet Volume 11.9 H 7.5-10.5 fL Immature Granulocyte % (Auto) 0.3 0-1 % Neutrophils (%) (Auto) 56.4 40.0-77.0 % Lymphocytes (%) (Auto) 26.1 21.0-51.0 % Monocytes (%) (Auto) 10.4 3.0-13.0 % Eosinophils (%) (Auto) 6.2 0.0-8.0 % Basophils (%) (Auto) 0.6 0.0-5.0 % Neutrophils # (Auto) 1.9 1.8-7.7 K/uL Lymphocytes # (Auto) 0.9 L 1.0-4.8 K/uL Monocytes # (Auto) 0.4 0.1-1.0 K/uL Eosinophils # (Auto) 0.21 0.00-0.70 K/uL Basophils # (Auto) 0.02 0.00-0.20 K/uL Absolute Immature Granulocyte (auto 0.01 0-1 K/uL Nucleated Red Blood Cells 0.0 0.0-0.19 % Sodium Level 140 136-145 mmol/L Potassium Level 3.4 L 3.5-5.1 mmol/L Chloride Level 105 101-111 mmol/L Carbon Dioxide Level 24 21-32 mmol/L Blood Urea Nitrogen 14 7-18 mg/dL Creatinine 0.7 0.5-1.0 mg/dL Glomerular Filtration Rate Calc 92 >90 mL/min Whole Blood Glucose 152 H 70-110 MG/DL Random Glucose 167 #H 70-105 mg/dL Total Calcium 8.0 L 8.5-10.1 mg/dL Magnesium Level 1.50 L 1.80-2.40 mg/dL Total Bilirubin 0.5 # 0.2-1.0 mg/dL Aspartate Amino Transf (AST/SGOT) 16 10-37 U/L Alanine Aminotransferase (ALT/SGPT) 17 12-78 U/L Alkaline Phosphatase 89 50-136 U/L Total Protein 6.4 6.0-8.3 g/dL Albumin 2.8 L 3.5-5.0 g/dL Triglycerides Level 172 30-200 mg/dL Cholesterol Level 108 <200 mg/dL LDL Cholesterol 51 0-99 mg/dL HDL Cholesterol 34 L 35-85 mg/dL Thyroid Stimulating Hormone (TSH) 3.87 H 0.36-3.74 uIU/mL Urine Color YELLOW YELLOW Urine Appearance CLOUDY H CLEAR Urine pH 5.0 5.0-8.0 Urine Specific [place] 1.011 1.001-1.031 Urine Protein NEGATIVE NEGATIVE mg/dL Urine Glucose (UA) NEGATIVE NEGATIVE mg/dL Urine Ketones NEGATIVE NEGATIVE mg/dL Urine Occult Blood NEGATIVE NEGATIVE Urine Nitrate NEGATIVE NEGATIVE Urine Bilirubin NEGATIVE NEGATIVE mg/dL Urine Urobilinogen 0.2 0.2-1.0 mg/dL Urine Leukocyte Esterase 250 H NEGATIVE Indigo/uL Urine RBC 2-5 H 0-1 /HPF Urine WBC 11-25 H 0-1 /HPF Urine Squamous Epithelial Cells RARE 0-2 /HPF Urine Bacteria MANY None Seen /HPF Urine Hyaline Casts 2-5 H 0-1 /LPF /LPF Red Blood Cell Morphology See comments Prothrombin Time 10.3 9.6-11.6 SEC Prothromb Time International Ratio 0.97 0.85-1.15 Activated Partial Thromboplast Time 29.3 26.3-35.5 SEC D-Dimer Quantitative (PE/DVT) 732 *H 0-500 ng/mL Lactic Acid Level 1.9 0.8-2.5 mmol/L Direct Bilirubin 0.1 0.0-0.3 mg/dL Total Creatine Kinase 96 21-232 U/L Troponin I High Sensitivity 25 4-50 ng/L Current Medications Medications (Trade) Dose Ordered Sig/Angelica Route PRN Reason Start Time Stop Time Status Last Admin Dose Admin Acetaminophen (TYLenol 325MG TAB) 650 mg Q4H PRN PO TEMPERATURE GREATER THAN 101.5 01/24/25 16:00 02/23/25 15:59 Ceftriaxone Sodium (ROCEphine 1G INJ) 1 gm Q24H IVPB 01/25/25 16:00 02/04/25 15:59 01/25/25 16:35 1 GM Ceftriaxone Sodium (Rocephin 2gm Inj) 2 gm ONCE IVPB 01/24/25 13:30 01/24/25 13:19 DC Dextrose (D50w) 50 ml AD PRN IV HYPOGLYCEMIA PROTOCOL 01/24/25 16:30 02/23/25 16:29 Folic Acid 1 mg/ Thiamine HCl 100 mg/Sodium Chloride 1,010 ml @ 100 mls/hr Q24H IV 01/25/25 18:00 01/27/25 08:59 01/25/25 18:22 100 MLS/HR Glucagon (Glucagon 1mg Kit) 1 mg AD PRN IM HYPOGLYCEMIA PROTOCOL 01/24/25 16:30 02/23/25 16:29 Hydralazine HCl (APRESOLine 20MG INJ) 5 mg Q4H PRN IV ADMINISTER FOR SBP > 160 01/24/25 16:00 02/23/25 15:59 Insulin Human Regular (humuLIN R 100 UNIT/ML 3ML) INSULIN SLIDING SCAL... ACHS SQ 01/25/25 11:30 02/24/25 11:29 01/25/25 20:42 4 UNIT Lactulose (Constulose 20gm/ 30ml Udcup) 20 gm BID PRN PO CONSTIPATION 01/24/25 16:00 02/23/25 15:59 Magnesium Sulfate 50 ml @ 0 mls/hr PROTOCOL IV 01/25/25 09:30 02/24/25 09:29 01/26/25 06:37 20 MLS/HR Magnesium Sulfate 50 ml @ 0 mls/hr PROTOCOL PRN IV low mag level 01/24/25 16:00 01/25/25 09:26 DC Magnesium Sulfate 50 ml @ 0 mls/hr PROTOCOL PRN IV Low magnesium level 01/24/25 16:30 01/25/25 09:26 DC Multivitamins/ Minerals 10 ml/ Folic Acid 1 mg/ Thiamine HCl 100 mg/Sodium Chloride 1,010 ml @ 100 mls/hr DAILY IV 01/24/25 18:00 01/25/25 09:32 DC 01/24/25 18:52 100 MLS/HR Pantoprazole Sodium (PROTonix 40MG INJ) 40 mg DAILY IVP 01/25/25 09:00 02/24/25 08:59 01/26/25 08:12 40 MG Potassium Chloride 100 ml @ 100 mls/hr AD PRN IV POTASSIUM PROTOCOL 01/24/25 16:00 01/25/25 09:28 DC 01/25/25 06:56 100 MLS/HR Potassium Chloride 100 ml @ 100 mls/hr AD PRN IV POTASSIUM PROTOCOL 01/24/25 16:30 02/23/25 16:29 Potassium Chloride (K-Dur/Klor-Con 20meq) 20 meq AD PRN PO POTASSIUM PROTOCOL 01/24/25 16:00 01/25/25 09:29 DC Potassium Chloride (K-Dur/Klor-Con 20meq) 20 meq AD PRN PO POTASSIUM PROTOCOL 01/24/25 16:30 02/23/25 16:29 Potassium Chloride (KCl 10% Elixir 20meq/15ml) 20 meq AD PRN PO POTASSIUM PROTOCOL 01/24/25 16:00 01/25/25 09:29 DC Potassium Chloride (KCl 10% Elixir 20meq/15ml) 20 meq AD PRN PO POTASSIUM PROTOCOL 01/24/25 16:30 02/23/25 16:29 01/26/25 08:12 20 MEQ Sodium Chloride 1,000 ml @ 0 mls/hr ONCE IV 01/24/25 13:30 01/24/25 13:19 DC DIAGNOSTICS / RADIOLOGY: [ ] ASSESSMENT: SIRS with organ dysfunction POA Elevated D-dimer rule out PE CHACE secondary to dehydration POA resolved Acute gastroenteritis diarrhea POA Electrolyte derangement hyponatremia, hypomagnesemia hypokalemia POA Hypoglycemic POA COVID-19 infection Generalized body weakness 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 Test: Stool PCR pending Labs cbc, cmp, mag Replace electrolytes as needed as per protocol to keep potassium above 4.0 magnesium 2.0. Home medications reviewed and reconciled Fall precautions, decubitus precautions offloading reposition every 2 hours Supportive measures: DVT ppx, GI ppx all questions answered time spent: > 35 min Supervising MD: c/d Case management for discharge planning This document was generated in part using voice recognition software, occasional wrong word or sound alike substitutions may have occurred due to the inherent limitations of voice recognition software. Read the chart carefully and recognize using context, where the substitutions have occurred. Although every effort was made to edit the content, mogul operator and typing errors may occur ATTESTATION BY PHYSICIAN I have seen and examined the patient. I reviewed the documentation, medical decision making, and treatment plan as noted by the mid-level provider above. I agree with the findings and plan of care. SONY MURCIA MD, ELIZABETH NP Jan 26, 2025 11:55
--- NOTE | 2025-01-26 12:30 | NUR ---
bs 247 PER PATIENT SENSOR , INFORMED PRIMARY PATIENT REFUSING TO HAVE GLUCOMETER CHECKS USING HOSPITAL LANCETS . PER PRIMARY DOCUMENT
[2025-01-26] MEDS: PoTASSium chloRIDE 20MEQ ER 20 MEQ ERTAB PO PRN (12:42)
--- NOTE | 2025-01-26 13:34 | NUR ---
[facility] Consult: Patient assessed by wound healing team. See wound assessment. Assessment and recommendations provided to primary nurse. Education provided. Addendum: 01/26/25 at 1509 by PRADIP CHAMORRO RN RN/ Amended: Links added.
[2025-01-26 16:16] VITALS: BP 131/60; PULSE 97; RESP 18; TEMP 97.9
--- NOTE | 2025-01-26 16:53 | CONS ---
CONSULTATION NOTE Date of Service: Jan 26, 2025 Reason for Consultation: [ Left Buttock Ulcer] Requesting Physician: [ Dr Romero ] HISTORY OF PRESENT ILLNESS: 74-year-old female was brought in by EMS patient [facility] [place]. She presents in ED with general body weakness on arrival she was hypotensive ER initiated fluid resuscitation improved blood pressure significantly. Patient reports she was diagnosed of COVID-19 five days ago and she has been having diarrhea for the past four days. She presents with a BUN42 and creatinine of 2.0 severe dehydrated. Patient is denies chest pain she does appear dyspneic during our conversation patient's D-dimer was elevated we will get a CT chest. The patient has a history of stroke with right side weakness. Patient is being evaluated in room 432 for wound care consult for ulcer to left buttock. Patient reports she has had ulcer to left buttock that resolves and returns for the past 3 months. REVIEW OF SYSTEMS CONSTITUTIONAL: Denies fever, chills, or fatigue. HEAD/FACE: No signs of trauma. EENT: Denies eye pain, blurred vision, double vision, or light sensitivity. RESPIRATORY: Denies shortness of breath, cough, wheezing CARDIOVASCULAR: Denies chest pain, palpitation, syncope GASTROINTESTINAL/ABDOMINAL: Denies abdominal pain, constipation, diarrhea, nausea or vomiting GENITOURINARY: Denies dysuria or hematuria. MUSCULOSKELETAL: Denies joint pain, tenderness, or trauma. INTEGUMENTARY: Denies rash or itchiness NEUROLOGICAL/PSYCH: Denies anxiety, depression, heat or cold intolerance. Right sided weakness PAST MEDICAL HISTORY: diabetes type 2 , hypertension, hyperlipidemia, CAD hypothyroidism stroke with right-sided weakness left buttock stage 2 pressure ulcer Left knee surgery PAST SOCIAL HISTORY: Denies smoking tobacco products and alcohol use. Coded Allergies: No Known Allergies (Unverified Allergy, Unknown, 02/23/24) PHYSICAL EXAM EYES: Anicteric. Pupils equal and reactive. HENT: No oral thrush seen, moist Oral mucosa NECK: Supple, no JVD or thyromegaly. LUNGS: Good air entry. No rales, no rhonchi. CARDIOVASCULAR: S1, S2 regular. No murmur heard. ABDOMEN: Soft, non tender, bowel sounds present, no organomegaly CENTRAL NERVOUS SYSTEM: Awake, alert, oriented x 3. Right sided weakness SKIN: Stage II ulcer to left buttock noted with 100% granulated tissue, mild pe riwound erythema, no drainage noted. LYMPHATICS: No peripheral lymphadenopathy MUSCULOSKELETAL: No joint swelling, erythema or tenderness. EXTREMITIES: No cyanosis or clubbing BACK: No deformity, no pressure ulcer. GENITOURINARY: No dysuria or hematuria Vital Sign (Last 24 Hours) 01/26/25 01/26/25 08:00 16:16 Temp 97.9 Pulse 97 Resp 18 B/P (MAP) 131/60 Pulse Ox 99 O2 Delivery Room Air O2 Flow Rate 0 FiO2 21 LABS: Laboratory: Test 01/26/25 05:17 01/25/25 06:00 01/25/25 01:32 Range/Units White Blood Count 3.4 L 4.8-10.8 K/uL Red Blood Count 3.84 L 4.00-5.50 MIL/uL Hemoglobin 10.8 L 12.0-16.0 g/dL Hematocrit 33.9 L 36-48 % Mean Corpuscular Volume 88.3 79-99 fL Mean Corpuscular Hemoglobin 28.1 27.0-33.0 pg Mean Corpuscular Hemoglobin Concent 31.9 L 32.0-36.0 g/dL Red Cell Distribution Width 18.7 H 11.0-15.5 % Platelet Count 144 130-400 K/uL Mean Platelet Volume 11.9 H 7.5-10.5 fL Immature Granulocyte % (Auto) 0.3 0-1 % Neutrophils (%) (Auto) 56.4 40.0-77.0 % Lymphocytes (%) (Auto) 26.1 21.0-51.0 % Monocytes (%) (Auto) 10.4 3.0-13.0 % Eosinophils (%) (Auto) 6.2 0.0-8.0 % Basophils (%) (Auto) 0.6 0.0-5.0 % Neutrophils # (Auto) 1.9 1.8-7.7 K/uL Lymphocytes # (Auto) 0.9 L 1.0-4.8 K/uL Monocytes # (Auto) 0.4 0.1-1.0 K/uL Eosinophils # (Auto) 0.21 0.00-0.70 K/uL Basophils # (Auto) 0.02 0.00-0.20 K/uL Absolute Immature Granulocyte (auto 0.01 0-1 K/uL Nucleated Red Blood Cells 0.0 0.0-0.19 % Sodium Level 140 136-145 mmol/L Potassium Level 3.4 L 3.5-5.1 mmol/L Chloride Level 105 101-111 mmol/L Carbon Dioxide Level 24 21-32 mmol/L Blood Urea Nitrogen 14 7-18 mg/dL Creatinine 0.7 0.5-1.0 mg/dL Glomerular Filtration Rate Calc 92 >90 mL/min Whole Blood Glucose 152 H 70-110 MG/DL Random Glucose 167 #H 70-105 mg/dL Total Calcium 8.0 L 8.5-10.1 mg/dL Magnesium Level 1.50 L 1.80-2.40 mg/dL Total Bilirubin 0.5 # 0.2-1.0 mg/dL Aspartate Amino Transf (AST/SGOT) 16 10-37 U/L Alanine Aminotransferase (ALT/SGPT) 17 12-78 U/L Alkaline Phosphatase 89 50-136 U/L Total Protein 6.4 6.0-8.3 g/dL Albumin 2.8 L 3.5-5.0 g/dL Triglycerides Level 172 30-200 mg/dL Cholesterol Level 108 <200 mg/dL LDL Cholesterol 51 0-99 mg/dL HDL Cholesterol 34 L 35-85 mg/dL Thyroid Stimulating Hormone (TSH) 3.87 H 0.36-3.74 uIU/mL Urine Color YELLOW YELLOW Urine Appearance CLOUDY H CLEAR Urine pH 5.0 5.0-8.0 Urine Specific [place] 1.011 1.001-1.031 Urine Protein NEGATIVE NEGATIVE mg/dL Urine Glucose (UA) NEGATIVE NEGATIVE mg/dL Urine Ketones NEGATIVE NEGATIVE mg/dL Urine Occult Blood NEGATIVE NEGATIVE Urine Nitrate NEGATIVE NEGATIVE Urine Bilirubin NEGATIVE NEGATIVE mg/dL Urine Urobilinogen 0.2 0.2-1.0 mg/dL Urine Leukocyte Esterase 250 H NEGATIVE Indigo/uL Urine RBC 2-5 H 0-1 /HPF Urine WBC 11-25 H 0-1 /HPF Urine Squamous Epithelial Cells RARE 0-2 /HPF Urine Bacteria MANY None Seen /HPF Urine Hyaline Casts 2-5 H 0-1 /LPF /LPF PROBLEM LIST : Medical Problems: Stage II to left buttock PLAN: Wound care to Left buttock- apply Venelex oint BID and PRN Leave open to air Keep wounds clean and dry Offloading/reposition q 2 hours Comorbidities per primary care team Further Management per hospital course. Thank You for the consult and allowing us to participate in the care of this patient. LIDIA LINDSAY NP Jan 26, 2025 16:53
[2025-01-26 20:00] VITALS: BP 136/74; PULSE 70; RESP 17; TEMP 98; O2SAT 97
[2025-01-26] MEDS: LEVOCETIRIZINE DIHYDROCHLORIDE PO SCH (20:39)
[2025-01-27] VITALS (8 sets, daily range): BP systolic 105–132; BP diastolic 66–89; PULSE 67–76; RESP 17–18; TEMP 98–98.6; O2SAT 96–97
[2025-01-27] MEDS: BALSAM PERU/CASTOR OIL 60 GM TUBE TP SCH (02:36)
[2025-01-27 04:13] LABS: IMMATURE GRANULOCYTE ABSOLUTE 0.01 K/uL (0-1); NUCLEATED RED BLOOD CELLS 0.0 % (0.0-0.19); PLATELET COUNT (AUTO) 147 K/uL (130-400); RED BLOOD CELL COUNT(AUTO) 3.99 MIL/uL (4.00-5.50); RED CELL DISTRIBUTION WIDTH 18.6 % (11.0-15.5); WHITE BLOOD COUNT (AUTO) 4.1 K/uL (4.8-10.8)
[2025-01-27 04:22] LABS: ASPARTATE AMINOTRANSFERASE 16.0 U/L (10-37); CREATININE 0.8 mg/dL (0.5-1.0); GLOMERULAR FILTR. RATE CALC 78.0 mL/min (>90); GLUCOSE,RANDOM 93.0 mg/dL (70-105); SODIUM SERUM 138.0 mmol/L (136-145); TOTAL PROTEIN, SERUM 6.5 g/dL (6.0-8.3); UREA NITROGEN, BLOOD 13.0 mg/dL (7-18)
[2025-01-27] MEDS ORDERED: NON-FORMULARY MEDICATION 1 EACH (Losartan/Hydrochlorothiazide (Losartan-Hctz 100-12.5 mg T PO SCH (09:00)
[2025-01-27] MEDS: ZOSYN 3.375GM +NS 50ML IV SCH (09:18)
[2025-01-27] MEDS: amLODIPine 5 MG TAB PO SCH (09:19)
[2025-01-27 09:47] LABS: INR 0.99 (0.85-1.15)
--- NOTE | 2025-01-27 11:29 | PN ---
[facility] PROGRESS NOTE Date of Service: Jan 27, 2025 Time of Service: 11:27 SUBJECTIVE: [ ] Admission date 01/24/2025 PCP Manuel Alas MD Chief complaint body ache general body weakness This is a 74-year-old female was brought in by EMS patient resides in [facility] [place]. She presents in ED with general body weakness on arrival she was hypotensive ER initiated fluid resuscitation improved blood pressure significantly. Patient reports she was diagnosed of COVID-19 five days ago and she has been having diarrhea for the past four days. She presents with a BUN42 and creatinine of 2.0 severe dehydrated. Patient is denies chest pain she does appear dyspneic during our conversation patient's D-dimer was elevated we will get a CT chest. The patient has a history of stroke with right side weakness ol 01/25/2025 the patient remains in ER reviewed labs potassium 3.0 creatinine improved significantly to 1.1 From 2.0. Patient denied chest pain or shortness for breath we will continue to monitor patient closely 01/26/25 patient is is asleep awakened per verbal stimuli. Afebrile diarrhea has someone subsided. Urine cultures waiting for final report. Patient we will be returning back to assisted living waiting for cultures. 09/27/24 patient is seen earlier patient appears chronically ill, alert oriented. no diarrhea reported urine cultures returned back with ESBL patient will require IV antibiotics for the next 14 days case management for SNF placement primary nurse reports no events overnight REVIEW OF SYSTEMS A14 point ROS was obtained all relevant positives were documented otherwise ROS negative PHYSICAL EXAM GENERAL APPEARANCE: The patient is awake, alert, and oriented, in no acute cardiopulmonary distress. NEUROLOGICAL: Cranial nerves II-XII grossly intact. Motor is 5/5 in bilateral upper and lower extremities proximal to distal. No sensory deficits. HEENT: Face is symmetric. Pupils are equal and reactive. Extraocular movements are intact. NECK: Supple. No JVD. No thyromegaly. No submental, submandibular, pre- /postauricular, occipital or supraclavicular lymphadenopathy. CHEST: Normal chest expansion. No Telemetry. LUNGS: Absence of any rales, rhonchi or any wheezing. CARDIOVASCULAR: Regular. S1 and S2 normal. No appreciable rubs, murmurs or gallops. ABDOMEN: Soft, nontender, and nondistended. There is no rebound, voluntary guarding, or rigidity. : Deferred. No Rinaldi. EXTREMITIES: Non-edematous and not cyanotic. No clubbing. Good capillary refill. SKIN: No skin breakdown. Vital Signs (last 8hr) Date Time Temp Pulse Resp B/P (MAP) Pulse Ox O2 Delivery O2 Flow Rate FiO2 01/27/25 08:00 98.6 76 18 120/70 92 Room Air 01/27/25 07:42 96 Room Air* 0 21 01/27/25 04:00 98.4 67 17 111/66 92 LABS: Laboratory: Test 01/27/25 11:09 01/27/25 09:07 01/27/25 03:45 Range/Units Whole Blood Glucose 303 #H 70-110 MG/DL Bedside Glucose Comment Notified Nurse Prothrombin Time 10.5 9.6-11.6 SEC Prothromb Time International Ratio 0.99 0.85-1.15 White Blood Count 4.1 L 4.8-10.8 K/uL Red Blood Count 3.99 L 4.00-5.50 MIL/uL Hemoglobin 11.3 L 12.0-16.0 g/dL Hematocrit 35.6 L 36-48 % Mean Corpuscular Volume 89.2 79-99 fL Mean Corpuscular Hemoglobin 28.3 27.0-33.0 pg Mean Corpuscular Hemoglobin Concent 31.7 L 32.0-36.0 g/dL Red Cell Distribution Width 18.6 H 11.0-15.5 % Platelet Count 147 130-400 K/uL Mean Platelet Volume 11.7 H 7.5-10.5 fL Immature Granulocyte % (Auto) 0.2 0-1 % Neutrophils (%) (Auto) 61.2 40.0-77.0 % Lymphocytes (%) (Auto) 23.1 21.0-51.0 % Monocytes (%) (Auto) 10.4 3.0-13.0 % Eosinophils (%) (Auto) 4.9 0.0-8.0 % Basophils (%) (Auto) 0.2 0.0-5.0 % Neutrophils # (Auto) 2.5 1.8-7.7 K/uL Lymphocytes # (Auto) 1.0 1.0-4.8 K/uL Monocytes # (Auto) 0.4 0.1-1.0 K/uL Eosinophils # (Auto) 0.20 0.00-0.70 K/uL Basophils # (Auto) 0.01 0.00-0.20 K/uL Absolute Immature Granulocyte (auto 0.01 0-1 K/uL Nucleated Red Blood Cells 0.0 0.0-0.19 % Sodium Level 138 136-145 mmol/L Potassium Level 4.0 3.5-5.1 mmol/L Chloride Level 105 101-111 mmol/L Carbon Dioxide Level 26 21-32 mmol/L Blood Urea Nitrogen 13 7-18 mg/dL Creatinine 0.8 0.5-1.0 mg/dL Glomerular Filtration Rate Calc 78 >90 mL/min Random Glucose 93 70-105 mg/dL Total Calcium 8.5 8.5-10.1 mg/dL Magnesium Level 2.00 1.80-2.40 mg/dL Total Bilirubin 0.6 0.2-1.0 mg/dL Aspartate Amino Transf (AST/SGOT) 16 10-37 U/L Alanine Aminotransferase (ALT/SGPT) 14 12-78 U/L Alkaline Phosphatase 89 50-136 U/L Total Protein 6.5 6.0-8.3 g/dL Albumin 2.9 L 3.5-5.0 g/dL Current Medications Medications (Trade) Dose Ordered Sig/Angelica Route PRN Reason Start Time Stop Time Status Last Admin Dose Admin Acetaminophen (TYLenol 325MG TAB) 650 mg Q4H PRN PO TEMPERATURE GREATER THAN 101.5 01/24/25 16:00 02/23/25 15:59 Amlodipine Besylate (NorvASC 5MG TAB) 5 mg DAILY PO 01/27/25 09:00 02/26/25 08:59 01/27/25 09:19 5 MG Atorvastatin Calcium (LIPItor 40MG) 40 mg HS PO 01/26/25 21:00 02/25/25 20:59 01/26/25 20:38 40 MG Ceftriaxone Sodium (ROCEphine 1G INJ) 1 gm Q24H IVPB 01/25/25 16:00 01/27/25 08:30 DC 01/26/25 18:08 1 GM Ceftriaxone Sodium (Rocephin 2gm Inj) 2 gm ONCE IVPB 01/24/25 13:30 01/24/25 13:19 DC Clopidogrel Bisulfate (plaVIX 75MG) 75 mg DAILY PO 01/27/25 09:00 02/26/25 08:59 01/27/25 09:18 75 MG Dextrose (D50w) 50 ml AD PRN IV HYPOGLYCEMIA PROTOCOL 01/24/25 16:30 02/23/25 16:29 Folic Acid 1 mg/ Thiamine HCl 100 mg/Sodium Chloride 1,010 ml @ 100 mls/hr Q24H IV 01/25/25 18:00 01/27/25 08:59 DC 01/26/25 18:08 100 MLS/HR Gabapentin (NEURontin 100 mg CAP) 100 mg TID PO 01/26/25 14:00 02/25/25 13:59 01/27/25 09:19 100 MG Glucagon (Glucagon 1mg Kit) 1 mg AD PRN IM HYPOGLYCEMIA PROTOCOL 01/24/25 16:30 02/23/25 16:29 Home Med (Home Medication) (Levocetirizine Dihydrochloride 1 TAB) HS PO 01/26/25 21:00 02/25/25 20:59 Hydralazine HCl (APRESOLine 20MG INJ) 5 mg Q4H PRN IV ADMINISTER FOR SBP > 160 01/24/25 16:00 02/23/25 15:59 Hydrochlorothiazide (hydroCHLOROthiazide 25MG) 12.5 mg DAILY PO 01/27/25 09:00 02/26/25 08:59 01/27/25 09:20 12.5 MG Insulin Glargine (LANtus 100 UNITS/ML 10 ML VIAL) 25 units HS SQ 01/26/25 21:00 02/25/25 20:59 Insulin Human Regular (humuLIN R 100 UNIT/ML 3ML) 5 unit TIDAC SQ 01/26/25 17:00 02/25/25 16:59 01/27/25 09:15 5 UNIT Insulin Human Regular (humuLIN R 100 UNIT/ML 3ML) INSULIN SLIDING SCAL... ACHS SQ 01/25/25 11:30 02/24/25 11:29 01/26/25 12:39 8 UNIT Lactulose (Constulose 20gm/ 30ml Udcup) 20 gm BID PRN PO CONSTIPATION 01/24/25 16:00 02/23/25 15:59 Losartan Potassium (CozAAR 100MG TAB) 100 mg DAILY PO 01/27/25 09:00 02/26/25 08:59 01/27/25 09:21 100 MG Magnesium Sulfate 50 ml @ 0 mls/hr PROTOCOL IV 01/25/25 09:30 02/24/25 09:29 01/26/25 06:37 20 MLS/HR Magnesium Sulfate 50 ml @ 0 mls/hr PROTOCOL PRN IV low mag level 01/24/25 16:00 01/25/25 09:26 DC Magnesium Sulfate 50 ml @ 0 mls/hr PROTOCOL PRN IV Low magnesium level 01/24/25 16:30 01/25/25 09:26 DC Miscellaneous Medication (Losartan/ Hydrochlorothiazide (Losartan-Hctz 100-12.5 mg Tab)) 1 tab DAILY PO 01/27/25 09:00 01/26/25 12:01 DC Montelukast Sodium (SinguLAIR) 10 mg DAILY PO 01/27/25 09:00 02/26/25 08:59 01/27/25 09:21 10 MG Multivitamins/ Minerals 10 ml/ Folic Acid 1 mg/ Thiamine HCl 100 mg/Sodium Chloride 1,010 ml @ 100 mls/hr DAILY IV 01/24/25 18:00 01/25/25 09:32 DC 01/24/25 18:52 100 MLS/HR Pantoprazole Sodium (PROTonix 40MG INJ) 40 mg DAILY IVP 01/25/25 09:00 02/24/25 08:59 01/27/25 09:20 40 MG Piperacillin Sod/ Tazobactam Sod (Zosyn 3.375gm+NS 50ml) 3.375 gm Q8H IV 01/27/25 09:00 02/06/25 08:59 01/27/25 09:18 3.375 GM Potassium Chloride 100 ml @ 100 mls/hr AD PRN IV POTASSIUM PROTOCOL 01/24/25 16:00 01/25/25 09:28 DC 01/25/25 06:56 100 MLS/HR Potassium Chloride 100 ml @ 100 mls/hr AD PRN IV POTASSIUM PROTOCOL 01/24/25 16:30 02/23/25 16:29 Potassium Chloride (K-Dur/Klor-Con 20meq) 20 meq AD PRN PO POTASSIUM PROTOCOL 01/24/25 16:00 01/25/25 09:29 DC Potassium Chloride (K-Dur/Klor-Con 20meq) 20 meq AD PRN PO POTASSIUM PROTOCOL 01/24/25 16:30 02/23/25 16:29 01/26/25 12:42 20 MEQ Potassium Chloride (KCl 10% Elixir 20meq/15ml) 20 meq AD PRN PO POTASSIUM PROTOCOL 01/24/25 16:00 01/25/25 09:29 DC Potassium Chloride (KCl 10% Elixir 20meq/15ml) 20 meq AD PRN PO POTASSIUM PROTOCOL 01/24/25 16:30 02/23/25 16:29 01/26/25 08:12 20 MEQ Sodium Chloride 1,000 ml @ 0 mls/hr ONCE IV 01/24/25 13:30 01/24/25 13:19 DC Wound Care/ Dressing Products (Venelex Ointment) Apply to left buttock BID TP 01/26/25 21:00 02/25/25 20:59 01/27/25 09:21 1 GM DIAGNOSTICS / RADIOLOGY: [ ] ASSESSMENT: SIRS with organ dysfunction POA Elevated D-dimer rule out PE CHACE secondary to dehydration POA resolved Acute gastroenteritis diarrhea POA Electrolyte derangement hyponatremia, hypomagnesemia hypokalemia POA Hypoglycemic POA COVID-19 infection Generalized body weakness 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 Test: Stool PCR pending diarrhea subsided Labs cbc, cmp, mag surveillance Replace electrolytes as needed as per protocol to keep potassium above 4.0 magnesium 2.0. Home medications reviewed and reconciled Fall precautions, decubitus precautions offloading reposition every 2 hours Supportive measures: DVT ppx, GI ppx all questions answered Case management SNF placement Supervising MD: c/d This document was generated in part using voice recognition software, occasional wrong word or sound alike substitutions may have occurred due to the inherent limitations of voice recognition software. Read the chart carefully and recognize using context, where the substitutions have occurred. Although every effort was made to edit the content, program consultant and typing errors may occur ATTESTATION BY PHYSICIAN I have seen and examined the patient. I reviewed the documentation, medical de cision making, and treatment plan as noted by the mid-level provider above. I agree with the findings and plan of care. SONY MURCIA MD, ELIZABETH NP Jan 27, 2025 11:29
--- NOTE | 2025-01-27 18:31 | NUR ---
DCP- DECLINED SNF, WANTS IV ABX W HH @ [facility] SPOKE TO PATIENT ABOUT NEED FOR IV ABX- PATIENT VERY UPSET STATES WOULD NOT GO TO A SNF, WANTS IV BX BY HH AT [facility]. EXPLAINED PRIMARY MD WOULD HAVE TO SIGN FOR THE HH; WILL SEND ALL INFO. PT GETTING MIDLINE TODAY CALL MADE TO DR JESSA LEE, SPOKE TO MARAH AND [phone]- EXPLAINED SITUATION, ASKED IF THERE WAS A HH THAT PMD WORKS WELL WITH, RECD CALL BACK RE [facility] FOR MD, ASKED PATIENT IF SHE WAS OK WITH THAT- STATES YES, ATTEMPTED TO CONTACT [facility], UNSUCCESSFUL, FAXED REFERRAL MULTIPLE TIMES TO FAX ON STEVIE [phone] WITH NO SUCCESS. SENT EMAIL TO [facility] AT [facility] EMAIL BACK WITH CONTACT NUMBER OF PERSON POCKET BUILDER FOR [facility] THIS WEEKEND Manuel Benavides RN [phone]
[2025-01-28 04:00] VITALS: BP 106/67; PULSE 65; RESP 18; TEMP 98.7
[2025-01-28] MEDS: DEXTROSE 50%-WATER 50 ML DISP.SYRIN IV PRN (06:01)
[2025-01-28 08:00] VITALS: BP 117/77; PULSE 66; RESP 18; TEMP 98.3; O2SAT 93
--- NOTE | 2025-01-28 08:14 | PN ---
[facility] PROGRESS NOTE Date of Service: Jan 28, 2025 Time of Service: 08:12 / SUBJECTIVE: [ ] Admission date 01/24/2025 PCP Manuel Alas MD Chief complaint body ache general body weakness This is a 74-year-old female was brought in by EMS patient resides in assisted [place]. She presents in ED with general body weakness on arrival she was hypotensive ER initiated fluid resuscitation improved blood pressure significantly. Patient reports she was diagnosed of COVID-19 five days ago and she has been having diarrhea for the past four days. She presents with a BUN42 and creatinine of 2.0 severe dehydrated. Patient is denies chest pain she does appear dyspneic during our conversation patient's D-dimer was elevated we will get a CT chest. The patient has a history of stroke with right side weakness ol 01/25/2025 the patient remains in ER reviewed labs potassium 3.0 creatinine improved significantly to 1.1 From 2.0. Patient denied chest pain or shortness for breath we will continue to monitor patient closely 01/26/25 patient is is asleep awakened per verbal stimuli. Afebrile diarrhea has someone subsided. Urine cultures waiting for final report. Patient we will be returning back to assisted living waiting for cultures. 01/27/25 patient is seen earlier patient appears chronically ill, alert oriented. no diarrhea reported urine cultures returned back with ESBL patient will require IV antibiotics for the next 14 days case management for SNF placement primary nurse reports no events overnight 01/28 The patient tolerating IV antibiotics refused SNF: case management arranging Home Health for IV antibiotics. Patient reports no complaints overnight. She denied chest pain or shortness for breath REVIEW OF SYSTEMS A14 point ROS was obtained all relevant positives were documented otherwise ROS negative PHYSICAL EXAM GENERAL APPEARANCE: The patient is awake, alert, and oriented, in no acute cardiopulmonary distress. NEUROLOGICAL: Cranial nerves II-XII grossly intact. Motor is 5/5 in bilateral upper and lower extremities proximal to distal. No sensory deficits. HEENT: Face is symmetric. Pupils are equal and reactive. Extraocular movements are intact. NECK: Supple. No JVD. No thyromegaly. No submental, submandibular, pre- /postauricular, occipital or supraclavicular lymphadenopathy. CHEST: Normal chest expansion. No Telemetry. LUNGS: Absence of any rales, rhonchi or any wheezing. CARDIOVASCULAR: Regular. S1 and S2 normal. No appreciable rubs, murmurs or gallops. ABDOMEN: Soft, nontender, and nondistended. There is no rebound, voluntary guarding, or rigidity. : Deferred. No Rinaldi. EXTREMITIES: Non-edematous and not cyanotic. No clubbing. Good capillary refill. SKIN: No skin breakdown. Vital Signs (last 8hr) Date Time Temp Pulse Resp B/P (MAP) Pulse Ox O2 Delivery O2 Flow Rate FiO2 01/28/25 04:00 98.8 65 18 106/67 95 Room Air LABS: Laboratory: Test 01/28/25 06:36 01/28/25 05:55 01/27/25 09:07 01/27/25 03:45 Range/Units Whole Blood Glucose 192 #H 70-110 MG/DL Bedside Glucose Comment Notified Nurse Prothrombin Time 10.5 9.6-11.6 SEC Prothromb Time International Ratio 0.99 0.85-1.15 White Blood Count 4.1 L 4.8-10.8 K/uL Red Blood Count 3.99 L 4.00-5.50 MIL/uL Hemoglobin 11.3 L 12.0-16.0 g/dL Hematocrit 35.6 L 36-48 % Mean Corpuscular Volume 89.2 79-99 fL Mean Corpuscular Hemoglobin 28.3 27.0-33.0 pg Mean Corpuscular Hemoglobin Concent 31.7 L 32.0-36.0 g/dL Red Cell Distribution Width 18.6 H 11.0-15.5 % Platelet Count 147 130-400 K/uL Mean Platelet Volume 11.7 H 7.5-10.5 fL Immature Granulocyte % (Auto) 0.2 0-1 % Neutrophils (%) (Auto) 61.2 40.0-77.0 % Lymphocytes (%) (Auto) 23.1 21.0-51.0 % Monocytes (%) (Auto) 10.4 3.0-13.0 % Eosinophils (%) (Auto) 4.9 0.0-8.0 % Basophils (%) (Auto) 0.2 0.0-5.0 % Neutrophils # (Auto) 2.5 1.8-7.7 K/uL Lymphocytes # (Auto) 1.0 1.0-4.8 K/uL Monocytes # (Auto) 0.4 0.1-1.0 K/uL Eosinophils # (Auto) 0.20 0.00-0.70 K/uL Basophils # (Auto) 0.01 0.00-0.20 K/uL Absolute Immature Granulocyte (auto 0.01 0-1 K/uL Nucleated Red Blood Cells 0.0 0.0-0.19 % Sodium Level 138 136-145 mmol/L Potassium Level 4.0 3.5-5.1 mmol/L Chloride Level 105 101-111 mmol/L Carbon Dioxide Level 26 21-32 mmol/L Blood Urea Nitrogen 13 7-18 mg/dL Creatinine 0.8 0.5-1.0 mg/dL Glomerular Filtration Rate Calc 78 >90 mL/min Random Glucose 93 70-105 mg/dL Total Calcium 8.5 8.5-10.1 mg/dL Magnesium Level 2.00 1.80-2.40 mg/dL Total Bilirubin 0.6 0.2-1.0 mg/dL Aspartate Amino Transf (AST/SGOT) 16 10-37 U/L Alanine Aminotransferase (ALT/SGPT) 14 12-78 U/L Alkaline Phosphatase 89 50-136 U/L Total Protein 6.5 6.0-8.3 g/dL Albumin 2.9 L 3.5-5.0 g/dL Current Medications Medications (Trade) Dose Ordered Sig/Angelica Route PRN Reason Start Time Stop Time Status Last Admin Dose Admin Acetaminophen (TYLenol 325MG TAB) 650 mg Q4H PRN PO TEMPERATURE GREATER THAN 101.5 01/24/25 16:00 02/23/25 15:59 Amlodipine Besylate (NorvASC 5MG TAB) 5 mg DAILY PO 01/27/25 09:00 02/26/25 08:59 01/27/25 09:19 5 MG Atorvastatin Calcium (LIPItor 40MG) 40 mg HS PO 01/26/25 21:00 02/25/25 20:59 01/27/25 20:49 40 MG Ceftriaxone Sodium (ROCEphine 1G INJ) 1 gm Q24H IVPB 01/25/25 16:00 01/27/25 08:30 DC 01/26/25 18:08 1 GM Ceftriaxone Sodium (Rocephin 2gm Inj) 2 gm ONCE IVPB 01/24/25 13:30 01/24/25 13:19 DC Clopidogrel Bisulfate (plaVIX 75MG) 75 mg DAILY PO 01/27/25 09:00 02/26/25 08:59 01/27/25 09:18 75 MG Dextrose (D50w) 50 ml AD PRN IV HYPOGLYCEMIA PROTOCOL 01/24/25 16:30 02/23/25 16:29 01/28/25 06:01 50 ML Folic Acid 1 mg/ Thiamine HCl 100 mg/Sodium Chloride 1,010 ml @ 100 mls/hr Q24H IV 01/25/25 18:00 01/27/25 08:59 DC 01/26/25 18:08 100 MLS/HR Gabapentin (NEURontin 100 mg CAP) 100 mg TID PO 01/26/25 14:00 02/25/25 13:59 01/27/25 20:51 100 MG Glucagon (Glucagon 1mg Kit) 1 mg AD PRN IM HYPOGLYCEMIA PROTOCOL 01/24/25 16:30 02/23/25 16:29 Home Med (Home Medication) (Levocetirizine Dihydrochloride 1 TAB) HS PO 01/26/25 21:00 02/25/25 20:59 Hydralazine HCl (APRESOLine 20MG INJ) 5 mg Q4H PRN IV ADMINISTER FOR SBP > 160 01/24/25 16:00 02/23/25 15:59 Hydrochlorothiazide (hydroCHLOROthiazide 25MG) 12.5 mg DAILY PO 01/27/25 09:00 02/26/25 08:59 01/27/25 09:20 12.5 MG Insulin Glargine (LANtus 100 UNITS/ML 10 ML VIAL) 25 units HS SQ 01/26/25 21:00 02/25/25 20:59 Insulin Human Regular (humuLIN R 100 UNIT/ML 3ML) 5 unit TIDAC SQ 01/26/25 17:00 02/25/25 16:59 01/27/25 17:22 5 UNIT Insulin Human Regular (humuLIN R 100 UNIT/ML 3ML) INSULIN SLIDING SCAL... ACHS SQ 01/25/25 11:30 02/24/25 11:29 01/27/25 12:25 14 UNIT Lactulose (Constulose 20gm/ 30ml Udcup) 20 gm BID PRN PO CONSTIPATION 01/24/25 16:00 02/23/25 15:59 Losartan Potassium (CozAAR 100MG TAB) 100 mg DAILY PO 01/27/25 09:00 02/26/25 08:59 01/27/25 09:21 100 MG Magnesium Sulfate 50 ml @ 0 mls/hr PROTOCOL IV 01/25/25 09:30 02/24/25 09:29 01/26/25 06:37 20 MLS/HR Magnesium Sulfate 50 ml @ 0 mls/hr PROTOCOL PRN IV low mag level 01/24/25 16:00 01/25/25 09:26 DC Magnesium Sulfate 50 ml @ 0 mls/hr PROTOCOL PRN IV Low magnesium level 01/24/25 16:30 01/25/25 09:26 DC Miscellaneous Medication (Losartan/ Hydrochlorothiazide (Losartan-Hctz 100-12.5 mg Tab)) 1 tab DAILY PO 01/27/25 09:00 01/26/25 12:01 DC Montelukast Sodium (SinguLAIR) 10 mg DAILY PO 01/27/25 09:00 02/26/25 08:59 01/27/25 09:21 10 MG Multivitamins/ Minerals 10 ml/ Folic Acid 1 mg/ Thiamine HCl 100 mg/Sodium Chloride 1,010 ml @ 100 mls/hr DAILY IV 01/24/25 18:00 01/25/25 09:32 DC 01/24/25 18:52 100 MLS/HR Pantoprazole Sodium (PROTonix 40MG INJ) 40 mg DAILY IVP 01/25/25 09:00 02/24/25 08:59 01/27/25 09:20 40 MG Piperacillin Sod/ Tazobactam Sod (Zosyn 3.375gm+NS 50ml) 3.375 gm Q8H IV 01/27/25 09:00 02/06/25 08:59 01/28/25 01:26 3.375 GM Potassium Chloride 100 ml @ 100 mls/hr AD PRN IV POTASSIUM PROTOCOL 01/24/25 16:00 01/25/25 09:28 DC 01/25/25 06:56 100 MLS/HR Potassium Chloride 100 ml @ 100 mls/hr AD PRN IV POTASSIUM PROTOCOL 01/24/25 16:30 02/23/25 16:29 Potassium Chloride (K-Dur/Klor-Con 20meq) 20 meq AD PRN PO POTASSIUM PROTOCOL 01/24/25 16:00 01/25/25 09:29 DC Potassium Chloride (K-Dur/Klor-Con 20meq) 20 meq AD PRN PO POTASSIUM PROTOCOL 01/24/25 16:30 02/23/25 16:29 01/26/25 12:42 20 MEQ Potassium Chloride (KCl 10% Elixir 20meq/15ml) 20 meq AD PRN PO POTASSIUM PROTOCOL 01/24/25 16:00 01/25/25 09:29 DC Potassium Chloride (KCl 10% Elixir 20meq/15ml) 20 meq AD PRN PO POTASSIUM PROTOCOL 01/24/25 16:30 02/23/25 16:29 01/26/25 08:12 20 MEQ Sodium Chloride 1,000 ml @ 0 mls/hr ONCE IV 01/24/25 13:30 01/24/25 13:19 DC Wound Care/ Dressing Products (Venelex Ointment) Apply to left buttock BID TP 01/26/25 21:00 02/25/25 20:59 01/27/25 20:52 1 GM DIAGNOSTICS / RADIOLOGY: [ ] ASSESSMENT: SIRS with organ dysfunction POA UTI with Gram-negative ESBL POA Elevated D-dimer rule out PE CHACE secondary to dehydration POA resolved Acute gastroenteritis diarrhea POA Electrolyte derangement hyponatremia, hypomagnesemia hypokalemia POA Hypoglycemic POA COVID-19 infection Generalized body weakness 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 Labs cbc, cmp, mag surveillance Replace electrolytes as needed as per protocol to keep potassium above 4.0 magnesium 2.0. Home medications reviewed and reconciled Fall precautions, decubitus precautions offloading reposition every 2 hours Supportive measures: DVT ppx, GI ppx all questions answered Case management SNF placement patient refused now waiting for home health services for IV antibiotics in process Supervising MD: c/d This document was generated in part using voice recognition software, occasional wrong word or sound alike substitutions may have occurred due to the inherent limitations of voice recognition software. Read the chart carefully and recognize using context, where the substitutions have occurred. Although every effort was made to edit the content, fire chief deputy and typing errors may occur ATTESTATION BY PHYSICIAN I have seen and examined the patient. I reviewed the documentation, medical decision making, and treatment plan as noted by the mid-level provider above. I agree with the findings and plan of care. SONY MURCIA MD, ELIZABETH NP Jan 28, 2025 08:14
[2025-01-28 09:17] LABS: IMMATURE GRANULOCYTE ABSOLUTE 0.02 K/uL (0-1); NUCLEATED RED BLOOD CELLS 0.0 % (0.0-0.19); PLATELET COUNT (AUTO) 155 K/uL (130-400); RED BLOOD CELL COUNT(AUTO) 3.75 MIL/uL (4.00-5.50); RED CELL DISTRIBUTION WIDTH 19.0 % (11.0-15.5); WHITE BLOOD COUNT (AUTO) 4.1 K/uL (4.8-10.8)
[2025-01-28 09:51] LABS: CREATININE 1.1 mg/dL (0.5-1.0); GLOMERULAR FILTR. RATE CALC 53.0 mL/min (>90); GLUCOSE,RANDOM 304.0 mg/dL (70-105); SODIUM SERUM 136.0 mmol/L (136-145); UREA NITROGEN, BLOOD 17.0 mg/dL (7-18)
[2025-01-28 09:55] LABS: ASPARTATE AMINOTRANSFERASE 16.0 U/L (10-37); TOTAL PROTEIN, SERUM 6.2 g/dL (6.0-8.3)
[2025-01-28 11:53] VITALS: BP 109/84; PULSE 64; RESP 18; TEMP 97.9
--- NOTE | 2025-01-28 15:42 | NUR ---
[facility] Follow-up: Patient re-assessed by wound healing team. See wound assessment. Assessment and recommendations provided to primary nurse. Education provided. Wound care done. Addendum: 01/28/25 at 1542 by PRADIP CHAMORRO RN RN/ Amended: Links added.
[2025-01-28 16:00] VITALS: BP 110/83; PULSE 72; RESP 18; TEMP 97.9
--- NOTE | 2025-01-28 16:54 | PN ---
PROGRESS NOTE Date of Service: Jan 28, 2025 Time of Service: 16:54 SUBJECTIVE: Patient is evaluated at bedside in room 432 for wound care follow up of stage II to left buttock. Patient awake, alert, and oriented x 3. Patient denies any complaints at this time. Patient denies any fever or chills. REVIEW OF SYSTEMS CONSTITUTIONAL: Denies fever, chills, or fatigue. HEAD/FACE: No signs of trauma. EENT: Denies eye pain, blurred vision, double vision, or light sensitivity. RESPIRATORY: Denies shortness of breath, cough, wheezing CARDIOVASCULAR: Denies chest pain, palpitation, syncope GASTROINTESTINAL/ABDOMINAL: Denies abdominal pain, constipation, diarrhea, nausea or vomiting GENITOURINARY: Denies dysuria or hematuria. MUSCULOSKELETAL: Denies joint pain, tenderness, or trauma. INTEGUMENTARY: Denies rash or itchiness NEUROLOGICAL/PSYCH: Denies anxiety, depression, heat or cold intolerance. Right sided weakness PHYSICAL EXAM EYES: Anicteric. Pupils equal and reactive. HENT: No oral thrush seen, moist Oral mucosa NECK: Supple, no JVD or thyromegaly. LUNGS: Good air entry. No rales, no rhonchi. CARDIOVASCULAR: S1, S2 regular. No murmur heard. ABDOMEN: Soft, non tender, bowel sounds present, no organomegaly CENTRAL NERVOUS SYSTEM: Awake, alert, oriented x 3. Right sided weakness SKIN: Stage II ulcer to left buttock noted with 100% granulated tissue, mild periwound erythema, no drainage noted. improving LYMPHATICS: No peripheral lymphadenopathy MUSCULOSKELETAL: No joint swelling, erythema or tenderness. EXTREMITIES: No cyanosis or clubbing BACK: No deformity, no pressure ulcer. GENITOURINARY: No dysuria or hematuria Vital Signs (last 8hr) Date Time Temp Pulse Resp B/P (MAP) Pulse Ox O2 Delivery O2 Flow Rate FiO2 01/28/25 11:53 97.9 64 18 109/84 93 Room Air 21 LABS: Laboratory: Test 01/28/25 11:06 01/28/25 09:07 01/27/25 09:07 Range/Units Whole Blood Glucose 348 #H 70-110 MG/DL Bedside Glucose Comment Notified Nurse White Blood Count 4.1 L 4.8-10.8 K/uL Red Blood Count 3.75 L 4.00-5.50 MIL/uL Hemoglobin 10.6 L 12.0-16.0 g/dL Hematocrit 33.4 L 36-48 % Mean Corpuscular Volume 89.1 79-99 fL Mean Corpuscular Hemoglobin 28.3 27.0-33.0 pg Mean Corpuscular Hemoglobin Concent 31.7 L 32.0-36.0 g/dL Red Cell Distribution Width 19.0 H 11.0-15.5 % Platelet Count 155 130-400 K/uL Mean Platelet Volume 12.5 H 7.5-10.5 fL Immature Granulocyte % (Auto) 0.5 0-1 % Neutrophils (%) (Auto) 70.5 40.0-77.0 % Lymphocytes (%) (Auto) 16.3 L 21.0-51.0 % Monocytes (%) (Auto) 8.8 3.0-13.0 % Eosinophils (%) (Auto) 3.7 0.0-8.0 % Basophils (%) (Auto) 0.2 0.0-5.0 % Neutrophils # (Auto) 2.9 1.8-7.7 K/uL Lymphocytes # (Auto) 0.7 L 1.0-4.8 K/uL Monocytes # (Auto) 0.4 0.1-1.0 K/uL Eosinophils # (Auto) 0.15 0.00-0.70 K/uL Basophils # (Auto) 0.01 0.00-0.20 K/uL Absolute Immature Granulocyte (auto 0.02 0-1 K/uL Nucleated Red Blood Cells 0.0 0.0-0.19 % Sodium Level 136 136-145 mmol/L Potassium Level 4.1 3.5-5.1 mmol/L Chloride Level 101 101-111 mmol/L Carbon Dioxide Level 26 21-32 mmol/L Blood Urea Nitrogen 17 7-18 mg/dL Creatinine 1.1 H 0.5-1.0 mg/dL Glomerular Filtration Rate Calc 53 >90 mL/min Random Glucose 304 H 70-105 mg/dL Total Calcium 7.8 L 8.5-10.1 mg/dL Magnesium Level 1.80 1.80-2.40 mg/dL Total Bilirubin 0.7 0.2-1.0 mg/dL Aspartate Amino Transf (AST/SGOT) 16 10-37 U/L Alanine Aminotransferase (ALT/SGPT) 17 12-78 U/L Alkaline Phosphatase 85 50-136 U/L Total Protein 6.2 6.0-8.3 g/dL Albumin 2.7 L 3.5-5.0 g/dL Prothrombin Time 10.5 9.6-11.6 SEC Prothromb Time International Ratio 0.99 0.85-1.15 PROBLEM LIST : Medical Problems: Stage II to left buttock PLAN: Wound care to Left buttock- apply Venelex oint BID and PRN Leave open to air Keep wounds clean and dry Offloading/reposition q 2 hours Comorbidities per primary care team Further Management per hospital course. Thank You for the consult and allowing us to participate in the care of this patient. LIIDA LINDSAY NP Jan 28, 2025 16:54
--- NOTE | 2025-01-28 18:59 | NUR ---
[facility] FOR IV ABX [facility] HAS APPROVED, CAN SEE PATIENT TOMORROW, BUT [facility] HAS NOT GOTTEN BACK TO CM ABOUT DELIVERY OF MEDICATION CM TO FOLLOW UP IN AM RE ANTIBIOTIC DELIVERY
[2025-01-28 20:00] VITALS: BP 105/55; PULSE 60; RESP 18; TEMP 98.2
[2025-01-29] VITALS: BP 100/55; PULSE 70; RESP 18; TEMP 98
[2025-01-29 04:00] VITALS: BP 106/63; PULSE 63; RESP 18; TEMP 98.2
[2025-01-29 08:00] VITALS: BP 101/62; PULSE 64; RESP 19; TEMP 97.9; O2SAT 95
--- NOTE | 2025-01-29 10:44 | NUR ---
CM NOTE/[facility] APPROVED CM received notification from Manuel with [facility] that patient has approval for the IV abx and shipment was overnighted. Patient scheduled to received shipment today. LUCIO updated Dr. Romero. Anticipate discharge for today.
[2025-01-29 12:00] VITALS: BP 107/77; PULSE 60; RESP 17; TEMP 98.1
--- NOTE | 2025-01-29 12:09 | DS ---
Discharge Summary Hospital Course Summary: Admission date 01/24/2025 PCP Manuel Marie MD Chief complaint body ache general body weakness This is a 74-year-old female was brought in by EMS patient resides in [facility]. She presents in ED with general body weakness on arrival she was hypotensive ER initiated fluid resuscitation improved blood pressure significantly. Patient reports she was diagnosed of COVID-19 five days ago and she has been having diarrhea for the past four days. She presents with a BUN42 and creatinine of 2.0 severe dehydrated. Patient is denies chest pain she does appear dyspneic during our conversation patient's D-dimer was elevated we will get a CT chest. The patient has a history of stroke with right side weakness ol 01/25/2025 the patient remains in ER reviewed labs potassium 3.0 creatinine improved significantly to 1.1 From 2.0. Patient denied chest pain or shortness for breath we will continue to monitor patient closely 01/26/25 patient is is asleep awakened per verbal stimuli. Afebrile diarrhea has someone subsided. Urine cultures waiting for final report. Patient we will be returning back to assisted living waiting for cultures. 01/27/25 patient is seen earlier patient appears chronically ill, alert oriented. no diarrhea reported urine cultures returned back with ESBL patient will require IV antibiotics for the next 14 days case management for SNF placement primary nurse reports no events overnight 01/28 The patient tolerating IV antibiotics refused SNF: case management arranging Home Health for IV antibiotics. Patient reports no complaints overnight. She denied chest pain or shortness for breath 01/29/2025/ERITA APPROVED that patient has approval for the IV abx and shipment was overnighted patient will return back to assisted living with home health services to administer IV antibiotics for 14 days Zosyn 3.375 g every 8 hours. Patient is hemodynamically stable for discharge. Questions addressed Computer Systems Technology Instructor(s): PHYSICAL EXAM GENERAL APPEARANCE: The patient is awake, alert, and oriented, in no acute cardiopulmonary distress. Obese NEUROLOGICAL: Cranial nerves II-XII grossly intact. Motor is 5/5 in bilateral upper and lower extremities proximal to distal. History of stroke has a slurred speech HEENT: Face is symmetric. Pupils are equal and reactive. Extraocular movements are intact. NECK: Supple. No JVD. No thyromegaly. No submental, submandibular, pre- /postauricular, occipital or supraclavicular lymphadenopathy. CHEST: Normal chest expansion. No Telemetry. LUNGS: Absence of any rales, rhonchi or any wheezing. CARDIOVASCULAR: Regular. S1 and S2 normal. No appreciable rubs, murmurs or gallops. ABDOMEN: Soft, nontender, and nondistended. There is no rebound, voluntary guarding, or rigidity. : Deferred. No Rinaldi. EXTREMITIES: Non-edematous and not cyanotic. No clubbing. Good capillary refill. Right-sided weakness SKIN: No skin breakdown. Stage II to buttock already present on admission Procedure(s): REASON: elevated ddimer ORDERING PHYSICIAN: KATLIN PAIZ NP PROCEDURE: VENOUS IAN - US VENOUS DOPPLER BILATERAL EXAMINATION: SPECTRAL DOPPLER ULTRASOUND EXAMINATION OF THE BILATERAL LOWER EXTREMITY VEINS. CLINICAL HISTORY: Elevated D-dimer. COMPARISON: None provided. TECHNIQUE: Real-time ultrasound scan of the veins of the bilateral lower extremity with color Doppler flow, spectral waveform analysis and compression. FINDINGS: DEEP VEINS: The common femoral, superficial femoral, and left popliteal veins are echolucent and compressible. There is normal color Doppler flow throughout. The visualized calf veins appear patent. The right popliteal vein is not well visualized. SUPERFICIAL VEINS: The greater saphenous veins are patent and compressible. SOFT TISSUES: No popliteal fossa cyst or other abnormalities. IMPRESSION: No deep venous thrombosis evident in the bilateral lower extremities. No superficial thrombophlebitis in the bilateral lower extremities. REASON: elevated d dimer ORDERING PHYSICIAN: KATLIN PAIZ NP PROCEDURE: CHEST WO - CT CHEST W/O CONTRAST EXAM: CT Chest Without Contrast CLINICAL HISTORY: Elevated D-dimer. TECHNIQUE: Thin collimated axial CT images of the chest were obtained with sagittal and coronal reformatted images also submitted. CT scan done according to ALARA (As Low as Reasonably Achievable). CONTRAST USED: None. COMPARISON: X-ray dated December 09, 2024. FINDINGS: Mild atelectasis in both lower lobes, more on the right side. No collapse or consolidation. No pulmonary nodules. No pleural effusions. No pericardial effusion. The heart size is within normal limits. Calcification of the coronary arteries with atherosclerotic changes in the aorta. No axillary, supraclavicular, or mediastinal lymphadenopathy. No focal thyroid abnormality. Limited views of the upper abdomen demonstrate gall bladder sludge. The bones under view show degenerative spondylotic changes in the spine with scoliosis. IMPRESSION: 1. No pulmonary infiltrates or pleural effusions. Mild atelectasis in both lower lobes, more on the right side. 2. Coronary artery disease with atherosclerosis. 3. No suspicious lung nodule. Lung RADS category 1. Continue annual screening with LDCT. 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 POA left buttock stage 2 pressure ulcer, POA Chronic problems diabetes, type 2 hypertension, hyperlipidemia, CAD hypothyroidism PLAN: [ ] ADMISSION DATE: 01/24/2025 DISCHARGE DATE: 01/29/2025 DISPOSITION: Assisted living CONDITION: Stable REGISTERED NURSE(S): None FOLLOW UP APPOINTMENT(S): PCP 2-3 day PROCEDURES: None IMAGING (S) report attached to summary : Venous Doppler, CT chest MICROBIOLOGY: report attached to summary; urine culture positive for ESBL, blood cultures negative ACTIVITY: Bed to chair ad adams as tolerated HOME MEDICATIONS remain the same CHANGES ON HOME MEDICATIONS none NEW MEDICATIONS we will need IV antibiotics Zosyn for 14 days administer by home health agency TEACHING: Emergency instructions: The patient was instructed to present to the nearest Emergency Department or call 911 should their symptoms return or worsen. Discharge Instructions: RUN DATE: 01/27/25 [facility] RUN TIME: [phone] [address], [place] [address] Department of Laboratories [facility] # [id number] Windows Systems Administrator: Ellen Ma DO Specimen Report PATIENT: TALI HERNANDEZ ACCT: [id number] LOC: 4A U: [id number] AGE/SX: 74/F ROOM: 432 RE01/24/[address]: SONY MURCIA MD : 1950 BED: 1 DIS: STATUS: ADM IN TLOC: SPEC: [id number] KEKE: 01/25/25 STATUS: COMP REQ: [id number] RECD: 01/25/[address]: PURNIMA PERES MD SOURCE: URINE CATH ENTR: 01/25/[address]: SONY [facility]CIA [facility] CATH[facility] MANUEL MARIE MD ORDERED: AERO ID & SENS Procedure Result Vianney Date-Time AEROBIC ID & SENSITIVITIES Final 01/27/25-07 MRL EXTENDED SPECTRUM BETA-LACTAMASE ORGANISM IDENTIFIED. CRITICAL RESULT WAS CALLED BY BOYD CHISHOLM ON 01/27/25 AT 0701. CRITICAL VALUES WERE READ BACK AND ACKNOWLEDGED BY MARYLOU FIGUEREDO ([facility]) COLONY DESCRIPTION: DAY 1: COLONY COUNT: >100,000 CFU/ML GRAM NEGATIVE RODS IDENTIFICATION AND SENSITIVITY TO FOLLOW COMMENTS(R): ESBL KLEBSIELLA PNEUMONIAE K PNEUMO M.I.C. RX --------- ---- AZTREONAM >16 ESBL CEFAZOLIN >16 R* CEFTAZIDIME >16 ESBL CEFTAZIDIME/AVIBACTAM <=8 S CEFTRIAXONE >2 ESBL CIPROFLOXACIN >2 R GENTAMICIN <=2 S LEVOFLOXACIN >4 R NITROFURANTOIN >64 R MEROPENEM <=1 S PIPERACILLIN/TAZOBACTAM <=8 S TRIMETHOPRIM/SUFLAMETHOXAZOLE >2/ R KLEBSIELLA PNEUMONIAE: NEGATIVE/URINE COMBO 62 Lab Alert - ESBL (Extended-Spectrum Beta-Lactamase marketing producer) @ [facility] Test Performed at: [facility] [address], [place], [place] Medical Spanish Language Lecturer: Getachew Hughes D.O. END OF REPORT Home Medications: Reported Medications Insulin Degludec (Tresiba Flextouch U-100) 100 Unit/Ml (3 Ml) Insuln.pen, 25 UNIT SQ HS, SYRINGE 01/25/25 Tirzepatide (Mounjaro) 2.5 Mg/0.5 Ml Pen.injctr, 2.5 MG SQ QWEEK 01/25/25 Montelukast Sodium (Montelukast Sodium) 10 Mg Tablet, 1 TAB PO DAILY for 30 Days, #30 TAB 0 Refills 01/25/25 Metformin HCl (Metformin HCl ER) 500 Mg Tab.er.24, 1 TAB PO DAILY for 30 Days, #30 TAB 0 Refills 01/25/25 Losartan/Hydrochlorothiazide (Losartan-Hctz 100-12.5 mg Tab) 100 Mg-12.5 Mg Tablet, 1 TAB PO DAILY for 30 Days, #30 TAB 0 Refills 01/25/25 Levocetirizine Dihydrochloride (Levocetirizine Dihydrochloride) 5 Mg Tablet, 1 TAB PO HS for 30 Days, #30 TAB 0 Refills 01/25/25 Insulin Regular, Human (Humulin R) 100 Unit/Ml Vial, 5 UNITS SQ TIDAC, VIAL 01/25/25 Gabapentin (Gabapentin) 100 Mg Capsule, 1 CAP PO TID for 30 Days, #90 CAP 0 Refills 01/25/25 Clopidogrel Bisulfate (Clopidogrel) 75 Mg Tablet, 1 TAB PO DAILY for 30 Days, #30 TAB 0 Refills 01/25/25 Atorvastatin Calcium (Atorvastatin Calcium) 40 Mg Tablet, 1 TAB PO HS for 30 Days, #30 TAB 0 Refills 01/25/25 Amlodipine Besylate (Amlodipine Besylate) 5 Mg Tablet, 1 TAB PO DAILY for 30 Days, #30 TAB 0 Refills 01/25/25 Discontinued Reported Medications Insulin Regular, Human (Humulin R) 500 Unit/Ml (Concentrated) Vial, 5 UNITS SQ TIDMEALS, VIAL 12/09/24 Insulin Degludec (Tresiba Flextouch U-100) 100 Unit/Ml (3 Ml) Insuln.pen, 25 UNIT SQ DAILYDINNER, SYRINGE 09/08/24 Montelukast Sodium (Montelukast Sodium) 10 Mg Tablet, 1 TAB PO DAILY for 30 Days, #30 TAB 0 Refills 09/08/24 Metformin HCl (Metformin HCl ER) 500 Mg [id number], 1 TAB PO DAILY for diabetes for 30 Days, #30 TAB 0 Refills 09/08/24 Levothyroxine Sodium (Levothyroxine Sodium) 50 Mcg Tablet, 1 TAB PO DAILY for 30 Days, #30 TAB 0 Refills 09/08/24 Gabapentin (Gabapentin) 100 Mg Capsule, 1 CAP PO TID for 30 Days, #90 CAP 0 Refills 09/08/24 Clopidogrel Bisulfate (Clopidogrel) 75 Mg Tablet, 1 TAB PO DAILY for 30 Days, #30 TAB 0 Refills 09/08/24 Atorvastatin Calcium (LIPITOR) 40 Mg Tablet, 1 TAB PO HS for 30 Days, #30 TAB 0 Refills 09/08/24 Amlodipine Besylate (Amlodipine Besylate) 5 Mg Tablet, 1 TAB PO DAILY for 30 Days, #30 TAB 0 Refills 09/08/24 Discontinued Scripts Nitrofurantoin Monohyd/M-Cryst (Macrobid 100 mg Capsule) 100 Mg Capsule, 1 CAP PO BID for 7 Days, #14 CAP 0 Refills Prov:KEN LOUIE MD 12/12/24 Continued Medications: Amlodipine Besylate (Amlodipine Besylate) 5 Mg Tablet 1 TAB PO DAILY for 30 Days, #30 TAB 0 Refills Atorvastatin Calcium (Atorvastatin Calcium) 40 Mg Tablet 1 TAB PO HS for 30 Days, #30 TAB 0 Refills Clopidogrel Bisulfate (Clopidogrel) 75 Mg Tablet 1 TAB PO DAILY for 30 Days, #30 TAB 0 Refills Gabapentin (Gabapentin) 100 Mg Capsule 1 CAP PO TID for 30 Days, #90 CAP 0 Refills Insulin Degludec (Tresiba Flextouch U-100) 100 Unit/Ml (3 Ml) Insuln.pen 25 UNIT SQ HS, SYRINGE Insulin Regular, Human (Humulin R) 100 Unit/Ml Vial 5 UNITS SQ TIDAC, VIAL Levocetirizine Dihydrochloride (Levocetirizine Dihydrochloride) 5 Mg Tablet 1 TAB PO HS for 30 Days, #30 TAB 0 Refills Losartan/Hydrochlorothiazide (Losartan-Hctz 100-12.5 mg Tab) 100 Mg-12.5 Mg Tablet 1 TAB PO DAILY for 30 Days, #30 TAB 0 Refills Metformin HCl (Metformin HCl ER) 500 Mg Tab.er.24 1 TAB PO DAILY for 30 Days, #30 TAB 0 Refills Montelukast Sodium (Montelukast Sodium) 10 Mg Tablet 1 TAB PO DAILY for 30 Days, #30 TAB 0 Refills Tirzepatide (Mounjaro) 2.5 Mg/0.5 Ml Pen.injctr 2.5 MG SQ QWEEK Time spent arranging discharge: 31-60 minutes ATTESTATION BY PHYSICIAN I have seen and examined the patient. I reviewed the documentation, medical decision making, and treatment plan as noted by the mid-level provider above. I agree with the findings and plan of care. SONY MURCIA MD, ELIZABETH NP Jan 29, 2025 12:09
--- NOTE | 2025-01-29 17:30 | NUR ---
CM NOTE CM spoke to Dasia comp field case manager with [facility]. States they cannot reaccept patient with a midline. CM updated patient and sons Roge and Gerry Gainesdez. Patient and sons requesting to speak to physicians about possible PO abx for discharge. CM explained that ID has given recommendations for IV and more than likely will not be an option. CM explained that patient can transfer to SNF for continued care and insurance authorization can be requested. Patient and sons verbalized understanding. Patient familiar with [facility]. States she has received o/p PT services from them in the past. CM provided strata and in network insurance SNF options. Patient undecided but will update CM tomorrow after speaking with MD. CM updated primary nurse and Marilee Burns LOGISTICS OPERATIONS DIRECTOR. Discharge on hold for now.
[2025-01-29 20:00] VITALS: BP 128/72; PULSE 67; RESP 18; TEMP 98.1
[2025-01-30] VITALS (8 sets, daily range): BP systolic 109–136; BP diastolic 63–78; PULSE 53–75; RESP 16–18; TEMP 97.9–98.3; O2SAT 96
--- NOTE | 2025-01-30 09:30 | NUR ---
Pt was busy with nurse. PT to attempt visit in a couple of hours.
[2025-01-30 10:02] LABS: NUCLEATED RED BLOOD CELLS 0.0 % (0.0-0.19); PLATELET COUNT (AUTO) 177.0 K/uL (130-400); RED BLOOD CELL COUNT(AUTO) 3.87 MIL/uL (4.00-5.50); RED CELL DISTRIBUTION WIDTH 18.7 % (11.0-15.5); WHITE BLOOD COUNT (AUTO) 4.5 K/uL (4.8-10.8)
[2025-01-30 10:09] LABS: CREATININE 1.0 mg/dL (0.5-1.0); GLOMERULAR FILTR. RATE CALC 60.0 mL/min (>90); GLUCOSE,RANDOM 271.0 mg/dL (70-105); SODIUM SERUM 136.0 mmol/L (136-145); UREA NITROGEN, BLOOD 15.0 mg/dL (7-18)
--- NOTE | 2025-01-30 12:00 | NUR ---
Pt refused PT this afternoon as she stated that she felt sleepy and nauseated. Nursing notified.
--- NOTE | 2025-01-30 13:18 | PN ---
[facility] PROGRESS NOTE Date of Service: Jan 30, 2025 Time of Service: 13:10 / SUBJECTIVE: [ ] Admission date 01/24/2025 PCP Manuel Alas MD Chief complaint body ache general body weakness This is a 74-year-old female was brought in by EMS patient resides in [facility]. She presents in ED with general body weakness on arrival she was hypotensive ER initiated fluid resuscitation improved blood pressure significantly. Patient reports she was diagnosed of COVID-19 five days ago and she has been having diarrhea for the past four days. She presents with a BUN42 and creatinine of 2.0 severe dehydrated. Patient is denies chest pain she does appear dyspneic during our conversation patient's D-dimer was elevated we will get a CT chest. The patient has a history of stroke with right side weakness ol 01/25/2025 the patient remains in ER reviewed labs potassium 3.0 creatinine improved significantly to 1.1 From 2.0. Patient denied chest pain or shortness for breath we will continue to monitor patient closely 01/26/25 patient is is asleep awakened per verbal stimuli. Afebrile diarrhea has someone subsided. Urine cultures waiting for final report. Patient we will be returning back to assisted living waiting for cultures. 01/27/25 patient is seen earlier patient appears chronically ill, alert oriented. no diarrhea reported urine cultures returned back with ESBL patient will require IV antibiotics for the next 14 days case management for SNF placement primary nurse reports no events overnight 01/28 The patient tolerating IV antibiotics refused SNF: case management arranging Home Health for IV antibiotics. Patient reports no complaints overnight. She denied chest pain or shortness for breath 01/30/25 : pt seen along with RN , no new complaints. Patient is pending acceptance to the assisted living. Continue with IV antibiotics. REVIEW OF SYSTEMS A14 point ROS was obtained all relevant positives were documented otherwise ROS negative PHYSICAL EXAM GENERAL APPEARANCE: The patient is awake, alert, and oriented, in no acute cardiopulmonary distress. NEUROLOGICAL: Cranial nerves II-XII grossly intact. Motor is 5/5 in bilateral upper and lower extremities proximal to distal. No sensory deficits. HEENT: Face is symmetric. Pupils are equal and reactive. Extraocular movements are intact. NECK: Supple. No JVD. No thyromegaly. No submental, submandibular, pre- /postauricular, occipital or supraclavicular lymphadenopathy. CHEST: Normal chest expansion. No Telemetry. LUNGS: Absence of any rales, rhonchi or any wheezing. CARDIOVASCULAR: Regular. S1 and S2 normal. No appreciable rubs, murmurs or gallops. ABDOMEN: Soft, nontender, and nondistended. There is no rebound, voluntary guarding, or rigidity. : Deferred. No Rinaldi. EXTREMITIES: Non-edematous and not cyanotic. No clubbing. Good capillary refill. SKIN: No skin breakdown. Vital Signs (last 8hr) Date Time Temp Pulse Resp B/P (MAP) Pulse Ox O2 Delivery O2 Flow Rate FiO2 01/30/25 08:28 98.2 57 18 128/71 94 Room Air 01/30/25 07:43 96 Room Air* 0 21 LABS: Laboratory: Test 01/30/25 11:18 01/30/25 09:30 Range/Units Whole Blood Glucose 297 #H 70-110 MG/DL Bedside Glucose Comment Notified Nurse White Blood Count 4.5 L 4.8-10.8 K/uL Red Blood Count 3.87 L 4.00-5.50 MIL/uL Hemoglobin 10.7 L 12.0-16.0 g/dL Hematocrit 35.9 L 36-48 % Mean Corpuscular Volume 92.8 79-99 fL Mean Corpuscular Hemoglobin 27.6 27.0-33.0 pg Mean Corpuscular Hemoglobin Concent 29.8 L 32.0-36.0 g/dL Red Cell Distribution Width 18.7 H 11.0-15.5 % Platelet Count 177 130-400 K/uL Mean Platelet Volume 12.9 H 7.5-10.5 fL Nucleated Red Blood Cells 0.0 0.0-0.19 % Sodium Level 136 136-145 mmol/L Potassium Level 3.9 3.5-5.1 mmol/L Chloride Level 104 101-111 mmol/L Carbon Dioxide Level 27 21-32 mmol/L Blood Urea Nitrogen 15 7-18 mg/dL Creatinine 1.0 0.5-1.0 mg/dL Glomerular Filtration Rate Calc 60 >90 mL/min Random Glucose 271 H 70-105 mg/dL Total Calcium 8.2 L 8.5-10.1 mg/dL Current Medications Medications (Trade) Dose Ordered Sig/Angelica Route PRN Reason Start Time Stop Time Status Last Admin Dose Admin Acetaminophen (TYLenol 325MG TAB) 650 mg Q4H PRN PO TEMPERATURE GREATER THAN 101.5 01/24/25 16:00 02/23/25 15:59 Amlodipine Besylate (NorvASC 5MG TAB) 5 mg DAILY PO 01/27/25 09:00 02/26/25 08:59 01/30/25 12:01 5 MG Atorvastatin Calcium (LIPItor 40MG) 40 mg HS PO 01/26/25 21:00 02/25/25 20:59 01/29/25 19:57 40 MG Ceftriaxone Sodium (ROCEphine 1G INJ) 1 gm Q24H IVPB 01/25/25 16:00 01/27/25 08:30 DC 01/26/25 18:08 1 GM Ceftriaxone Sodium (Rocephin 2gm Inj) 2 gm ONCE IVPB 01/24/25 13:30 01/24/25 13:19 DC Clopidogrel Bisulfate (plaVIX 75MG) 75 mg DAILY PO 01/27/25 09:00 02/26/25 08:59 01/30/25 08:22 75 MG Dextrose (D50w) 50 ml AD PRN IV HYPOGLYCEMIA PROTOCOL 01/24/25 16:30 02/23/25 16:29 01/28/25 06:01 50 ML Folic Acid 1 mg/ Thiamine HCl 100 mg/Sodium Chloride 1,010 ml @ 100 mls/hr Q24H IV 01/25/25 18:00 01/27/25 08:59 DC 01/26/25 18:08 100 MLS/HR Gabapentin (NEURontin 100 mg CAP) 100 mg TID PO 01/26/25 14:00 02/25/25 13:59 01/30/25 08:19 100 MG Glucagon (Glucagon 1mg Kit) 1 mg AD PRN IM HYPOGLYCEMIA PROTOCOL 01/24/25 16:30 02/23/25 16:29 Home Med (Home Medication) (Levocetirizine Dihydrochloride 1 TAB) HS PO 01/26/25 21:00 02/25/25 20:59 Hydralazine HCl (APRESOLine 20MG INJ) 5 mg Q4H PRN IV ADMINISTER FOR SBP > 160 01/24/25 16:00 02/23/25 15:59 Hydrochlorothiazide (hydroCHLOROthiazide 25MG) 12.5 mg DAILY PO 01/27/25 09:00 02/26/25 08:59 01/30/25 08:23 12.5 MG Insulin Glargine (LANtus 100 UNITS/ML 10 ML VIAL) 25 units HS SQ 01/26/25 21:00 02/25/25 20:59 01/29/25 19:59 25 UNITS Insulin Human Regular (humuLIN R 100 UNIT/ML 3ML) 5 unit TIDAC SQ 01/26/25 17:00 02/25/25 16:59 01/30/25 12:01 5 UNIT Insulin Human Regular (humuLIN R 100 UNIT/ML 3ML) INSULIN SLIDING SCAL... ACHS SQ 01/25/25 11:30 02/24/25 11:29 01/30/25 12:00 12 UNIT Lactulose (Constulose 20gm/ 30ml Udcup) 20 gm BID PRN PO CONSTIPATION 01/24/25 16:00 02/23/25 15:59 Losartan Potassium (CozAAR 100MG TAB) 100 mg DAILY PO 01/27/25 09:00 02/26/25 08:59 01/30/25 12:02 100 MG Magnesium Sulfate 50 ml @ 0 mls/hr PROTOCOL IV 01/25/25 09:30 02/24/25 09:29 01/29/25 00:09 0 MLS/HR Magnesium Sulfate 50 ml @ 0 mls/hr PROTOCOL PRN IV low mag level 01/24/25 16:00 01/25/25 09:26 DC Magnesium Sulfate 50 ml @ 0 mls/hr PROTOCOL PRN IV Low magnesium level 01/24/25 16:30 01/25/25 09:26 DC Miscellaneous Medication (Losartan/ Hydrochlorothiazide (Losartan-Hctz 100-12.5 mg Tab)) 1 tab DAILY PO 01/27/25 09:00 01/26/25 12:01 DC Montelukast Sodium (SinguLAIR) 10 mg DAILY PO 01/27/25 09:00 02/26/25 08:59 01/30/25 08:22 10 MG Multivitamins/ Minerals 10 ml/ Folic Acid 1 mg/ Thiamine HCl 100 mg/Sodium Chloride 1,010 ml @ 100 mls/hr DAILY IV 01/24/25 18:00 01/25/25 09:32 DC 01/24/25 18:52 100 MLS/HR Pantoprazole Sodium (PROTonix 40MG INJ) 40 mg DAILY IVP 01/25/25 09:00 02/24/25 08:59 01/30/25 08:26 40 MG Piperacillin Sod/ Tazobactam Sod (Zosyn 3.375gm+NS 50ml) 3.375 gm Q8H IV 01/27/25 09:00 02/06/25 08:59 01/30/25 08:26 3.375 GM Potassium Chloride 100 ml @ 100 mls/hr AD PRN IV POTASSIUM PROTOCOL 01/24/25 16:00 01/25/25 09:28 DC 01/25/25 06:56 100 MLS/HR Potassium Chloride 100 ml @ 100 mls/hr AD PRN IV POTASSIUM PROTOCOL 01/24/25 16:30 02/23/25 16:29 Potassium Chloride (K-Dur/Klor-Con 20meq) 20 meq AD PRN PO POTASSIUM PROTOCOL 01/24/25 16:00 01/25/25 09:29 DC Potassium Chloride (K-Dur/Klor-Con 20meq) 20 meq AD PRN PO POTASSIUM PROTOCOL 01/24/25 16:30 02/23/25 16:29 01/26/25 12:42 20 MEQ Potassium Chloride (KCl 10% Elixir 20meq/15ml) 20 meq AD PRN PO POTASSIUM PROTOCOL 01/24/25 16:00 01/25/25 09:29 DC Potassium Chloride (KCl 10% Elixir 20meq/15ml) 20 meq AD PRN PO POTASSIUM PROTOCOL 01/24/25 16:30 02/23/25 16:29 01/26/25 08:12 20 MEQ Sodium Chloride 1,000 ml @ 0 mls/hr ONCE IV 01/24/25 13:30 01/24/25 13:19 DC Wound Care/ Dressing Products (Venelex Ointment) Apply to left buttock BID TP 01/26/25 21:00 02/25/25 20:59 01/30/25 08:22 1 GM DIAGNOSTICS / RADIOLOGY: [ ] Assessment and plan: Sepsis POA UTI with Gram-negative ESBL POA Elevated D-dimer rule out PE CHACE secondary to dehydration POA resolved Acute gastroenteritis diarrhea POA Electrolyte derangement hyponatremia, hypomagnesemia hypokalemia POA Hypoglycemic POA COVID-19 infection Generalized body weakness 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 Labs cbc, cmp, mag surveillance Replace electrolytes as needed as per protocol to keep potassium above 4.0 magnesium 2.0. Home medications reviewed and reconciled Fall precautions, decubitus precautions offloading reposition every 2 hours Supportive measures: DVT ppx, GI ppx all questions answered SONY MURCIA MD Jan 30, 2025 13:18
--- NOTE | 2025-01-30 16:09 | NUR ---
BS 169 PER PATIENTS GLUCOMETER SENSOR ..
[2025-01-31] VITALS (7 sets, daily range): BP systolic 97–112; BP diastolic 56–87; PULSE 52–58; RESP 16–20; TEMP 96.6–98.2; O2SAT 96–97
[2025-01-31 09:43] LABS: NUCLEATED RED BLOOD CELLS 0.0 % (0.0-0.19); PLATELET COUNT (AUTO) 182.0 K/uL (130-400); RED BLOOD CELL COUNT(AUTO) 4.07 MIL/uL (4.00-5.50); RED CELL DISTRIBUTION WIDTH 18.7 % (11.0-15.5); WHITE BLOOD COUNT (AUTO) 3.9 K/uL (4.8-10.8)
[2025-01-31 10:01] LABS: ASPARTATE AMINOTRANSFERASE 15.0 U/L (10-37); CREATININE 1.0 mg/dL (0.5-1.0); GLOMERULAR FILTR. RATE CALC 60.0 mL/min (>90); GLUCOSE,RANDOM 113.0 mg/dL (70-105); SODIUM SERUM 139.0 mmol/L (136-145); TOTAL PROTEIN, SERUM 6.3 g/dL (6.0-8.3); UREA NITROGEN, BLOOD 13.0 mg/dL (7-18)
--- NOTE | 2025-01-31 12:49 | PN ---
[facility] PROGRESS NOTE Date of Service: Jan 31, 2025 Time of Service: 12:49 / SUBJECTIVE: [ ] Admission date 01/24/2025 PCP Manuel Alas MD Chief complaint body ache general body weakness This is a 74-year-old female was brought in by EMS patient resides in [facility]. She presents in ED with general body weakness on arrival she was hypotensive ER initiated fluid resuscitation improved blood pressure significantly. Patient reports she was diagnosed of COVID-19 five days ago and she has been having diarrhea for the past four days. She presents with a BUN42 and creatinine of 2.0 severe dehydrated. Patient is denies chest pain she does appear dyspneic during our conversation patient's D-dimer was elevated we will get a CT chest. The patient has a history of stroke with right side weakness ol 01/25/2025 the patient remains in ER reviewed labs potassium 3.0 creatinine improved significantly to 1.1 From 2.0. Patient denied chest pain or shortness for breath we will continue to monitor patient closely 01/26/25 patient is is asleep awakened per verbal stimuli. Afebrile diarrhea has someone subsided. Urine cultures waiting for final report. Patient we will be returning back to assisted living waiting for cultures. 01/27/25 patient is seen earlier patient appears chronically ill, alert oriented. no diarrhea reported urine cultures returned back with ESBL patient will require IV antibiotics for the next 14 days case management for SNF placement primary nurse reports no events overnight 01/28 The patient tolerating IV antibiotics refused SNF: case management arranging Home Health for IV antibiotics. Patient reports no complaints overnight. She denied chest pain or shortness for breath 01/30/25 : pt seen along with RN , no new complaints. Patient is pending acceptance to the assisted living. Continue with IV antibiotics. 01/31 patient is seen and examined at bedside, case discussed with the RN, no acute events overnight, discussed with case management, pending acceptance to [facility] for IV antibiotics. Patient with PICC line in place. REVIEW OF SYSTEMS A14 point ROS was obtained all relevant positives were documented otherwise ROS negative PHYSICAL EXAM GENERAL APPEARANCE: The patient is awake, alert, and oriented, in no acute cardiopulmonary distress. NEUROLOGICAL: Cranial nerves II-XII grossly intact. Motor is 5/5 in bilateral upper and lower extremities proximal to distal. No sensory deficits. HEENT: Face is symmetric. Pupils are equal and reactive. Extraocular movements are intact. NECK: Supple. No JVD. No thyromegaly. No submental, submandibular, pre- /postauricular, occipital or supraclavicular lymphadenopathy. CHEST: Normal chest expansion. No Telemetry. LUNGS: Absence of any rales, rhonchi or any wheezing. CARDIOVASCULAR: Regular. S1 and S2 normal. No appreciable rubs, murmurs or gallops. ABDOMEN: Soft, nontender, and nondistended. There is no rebound, voluntary guarding, or rigidity. : Deferred. No Rinaldi. EXTREMITIES: Non-edematous and not cyanotic. No clubbing. Good capillary refill. SKIN: No skin breakdown. Vital Signs (last 8hr) Date Time Temp Pulse Resp B/P (MAP) Pulse Ox O2 Delivery O2 Flow Rate FiO2 01/31/25 11:19 96.8 58 16 99/65 96 Room Air 01/31/25 08:00 96 Room Air* 0 21 01/31/25 07:55 96.6 52 16 97/60 96 Room Air LABS: Laboratory: Test 01/31/25 09:23 01/31/25 05:05 01/30/25 11:18 Range/Units White Blood Count 3.9 L 4.8-10.8 K/uL Red Blood Count 4.07 4.00-5.50 MIL/uL Hemoglobin 11.2 L 12.0-16.0 g/dL Hematocrit 36.7 36-48 % Mean Corpuscular Volume 90.2 79-99 fL Mean Corpuscular Hemoglobin 27.5 27.0-33.0 pg Mean Corpuscular Hemoglobin Concent 30.5 L 32.0-36.0 g/dL Red Cell Distribution Width 18.7 H 11.0-15.5 % Platelet Count 182 130-400 K/uL Mean Platelet Volume 11.8 H 7.5-10.5 fL Nucleated Red Blood Cells 0.0 0.0-0.19 % Sodium Level 139 136-145 mmol/L Potassium Level 3.5 3.5-5.1 mmol/L Chloride Level 104 101-111 mmol/L Carbon Dioxide Level 27 21-32 mmol/L Blood Urea Nitrogen 13 7-18 mg/dL Creatinine 1.0 0.5-1.0 mg/dL Glomerular Filtration Rate Calc 60 >90 mL/min Random Glucose 113 #H 70-105 mg/dL Total Calcium 8.4 L 8.5-10.1 mg/dL Magnesium Level 1.90 1.80-2.40 mg/dL Total Bilirubin 0.6 0.2-1.0 mg/dL Aspartate Amino Transf (AST/SGOT) 15 10-37 U/L Alanine Aminotransferase (ALT/SGPT) 11 L 12-78 U/L Alkaline Phosphatase 83 50-136 U/L Total Protein 6.3 6.0-8.3 g/dL Albumin 2.6 L 3.5-5.0 g/dL Whole Blood Glucose 81 70-110 MG/DL Bedside Glucose Comment Notified Nurse Current Medications Medications (Trade) Dose Ordered Sig/Angelica Route PRN Reason Start Time Stop Time Status Last Admin Dose Admin Acetaminophen (TYLenol 325MG TAB) 650 mg Q4H PRN PO TEMPERATURE GREATER THAN 101.5 01/24/25 16:00 02/23/25 15:59 Amlodipine Besylate (NorvASC 5MG TAB) 5 mg DAILY PO 01/27/25 09:00 02/26/25 08:59 01/30/25 12:01 5 MG Atorvastatin Calcium (LIPItor 40MG) 40 mg HS PO 01/26/25 21:00 02/25/25 20:59 01/30/25 19:54 40 MG Ceftriaxone Sodium (ROCEphine 1G INJ) 1 gm Q24H IVPB 01/25/25 16:00 01/27/25 08:30 DC 01/26/25 18:08 1 GM Ceftriaxone Sodium (Rocephin 2gm Inj) 2 gm ONCE IVPB 01/24/25 13:30 01/24/25 13:19 DC Clopidogrel Bisulfate (plaVIX 75MG) 75 mg DAILY PO 01/27/25 09:00 02/26/25 08:59 01/31/25 09:00 75 MG Dextrose (D50w) 50 ml AD PRN IV HYPOGLYCEMIA PROTOCOL 01/24/25 16:30 02/23/25 16:29 01/28/25 06:01 50 ML Folic Acid 1 mg/ Thiamine HCl 100 mg/Sodium Chloride 1,010 ml @ 100 mls/hr Q24H IV 01/25/25 18:00 01/27/25 08:59 DC 01/26/25 18:08 100 MLS/HR Gabapentin (NEURontin 100 mg CAP) 100 mg TID PO 01/26/25 14:00 02/25/25 13:59 01/31/25 09:00 100 MG Glucagon (Glucagon 1mg Kit) 1 mg AD PRN IM HYPOGLYCEMIA PROTOCOL 01/24/25 16:30 02/23/25 16:29 Home Med (Home Medication) (Levocetirizine Dihydrochloride 1 TAB) HS PO 01/26/25 21:00 02/25/25 20:59 Hydralazine HCl (APRESOLine 20MG INJ) 5 mg Q4H PRN IV ADMINISTER FOR SBP > 160 01/24/25 16:00 02/23/25 15:59 Hydrochlorothiazide (hydroCHLOROthiazide 25MG) 12.5 mg DAILY PO 01/27/25 09:00 02/26/25 08:59 01/30/25 08:23 12.5 MG Insulin Glargine (LANtus 100 UNITS/ML 10 ML VIAL) 25 units HS SQ 01/26/25 21:00 02/25/25 20:59 01/30/25 20:10 25 UNITS Insulin Human Regular (humuLIN R 100 UNIT/ML 3ML) 5 unit TIDAC SQ 01/26/25 17:00 02/25/25 16:59 01/31/25 11:38 5 UNIT Insulin Human Regular (humuLIN R 100 UNIT/ML 3ML) INSULIN SLIDING SCAL... ACHS SQ 01/25/25 11:30 02/24/25 11:29 01/30/25 12:00 12 UNIT Lactulose (Constulose 20gm/ 30ml Udcup) 20 gm BID PRN PO CONSTIPATION 01/24/25 16:00 02/23/25 15:59 Losartan Potassium (CozAAR 100MG TAB) 100 mg DAILY PO 01/27/25 09:00 02/26/25 08:59 01/30/25 12:02 100 MG Magnesium Sulfate 50 ml @ 0 mls/hr PROTOCOL IV 01/25/25 09:30 02/24/25 09:29 01/29/25 00:09 0 MLS/HR Magnesium Sulfate 50 ml @ 0 mls/hr PROTOCOL PRN IV low mag level 01/24/25 16:00 01/25/25 09:26 DC Magnesium Sulfate 50 ml @ 0 mls/hr PROTOCOL PRN IV Low magnesium level 01/24/25 16:30 01/25/25 09:26 DC Miscellaneous Medication (Losartan/ Hydrochlorothiazide (Losartan-Hctz 100-12.5 mg Tab)) 1 tab DAILY PO 01/27/25 09:00 01/26/25 12:01 DC Montelukast Sodium (SinguLAIR) 10 mg DAILY PO 01/27/25 09:00 02/26/25 08:59 01/31/25 09:01 10 MG Multivitamins/ Minerals 10 ml/ Folic Acid 1 mg/ Thiamine HCl 100 mg/Sodium Chloride 1,010 ml @ 100 mls/hr DAILY IV 01/24/25 18:00 01/25/25 09:32 DC 01/24/25 18:52 100 MLS/HR Pantoprazole Sodium (PROTonix 40MG INJ) 40 mg DAILY IVP 01/25/25 09:00 02/24/25 08:59 01/31/25 09:00 40 MG Piperacillin Sod/ Tazobactam Sod (Zosyn 3.375gm+NS 50ml) 3.375 gm Q8H IV 01/27/25 09:00 02/06/25 08:59 01/31/25 09:01 3.375 GM Potassium Chloride 100 ml @ 100 mls/hr AD PRN IV POTASSIUM PROTOCOL 01/24/25 16:00 01/25/25 09:28 DC 01/25/25 06:56 100 MLS/HR Potassium Chloride 100 ml @ 100 mls/hr AD PRN IV POTASSIUM PROTOCOL 01/24/25 16:30 02/23/25 16:29 Potassium Chloride (K-Dur/Klor-Con 20meq) 20 meq AD PRN PO POTASSIUM PROTOCOL 01/24/25 16:00 01/25/25 09:29 DC Potassium Chloride (K-Dur/Klor-Con 20meq) 20 meq AD PRN PO POTASSIUM PROTOCOL 01/24/25 16:30 02/23/25 16:29 01/26/25 12:42 20 MEQ Potassium Chloride (KCl 10% Elixir 20meq/15ml) 20 meq AD PRN PO POTASSIUM PROTOCOL 01/24/25 16:00 01/25/25 09:29 DC Potassium Chloride (KCl 10% Elixir 20meq/15ml) 20 meq AD PRN PO POTASSIUM PROTOCOL 01/24/25 16:30 02/23/25 16:29 01/26/25 08:12 20 MEQ Sodium Chloride 1,000 ml @ 0 mls/hr ONCE IV 01/24/25 13:30 01/24/25 13:19 DC Wound Care/ Dressing Products (Venelex Ointment) Apply to left buttock BID TP 01/26/25 21:00 02/25/25 20:59 01/31/25 09:01 1 GM DIAGNOSTICS / RADIOLOGY: [ ] Assessment and plan: Sepsis POA UTI with Gram-negative ESBL POA Elevated D-dimer rule out PE CHACE secondary to dehydration POA resolved Acute gastroenteritis diarrhea POA Electrolyte derangement hyponatremia, hypomagnesemia hypokalemia POA Hypoglycemic POA COVID-19 infection Generalized body weakness 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 Labs cbc, cmp, mag surveillance Replace electrolytes as needed as per protocol to keep potassium above 4.0 magnesium 2.0. Home medications reviewed and reconciled Fall precautions, decubitus precautions offloading reposition every 2 hours Supportive measures: DVT ppx, GI ppx all questions answered YOLANDE BOWEN MD Jan 31, 2025 12:49
--- NOTE | 2025-01-31 13:00 | NUR ---
SPOKE TO PATIENT WITH DR. BOWEN AT BEDSIDE, ADVISED DR BOWEN THAT [facility] COULD NOT TAKE PATIENT WITH A LINE, BUT EXCEPTIONS HAVE BEEN MADE BEFORE, RECENTLY FOR OTHER PATIENTS, AND THAT CM/CM DIRETOR WOULD LIKE TO GET ADMIN ON TO SEE WHAT CAN BE DONE. PATIENT HAS ALREADY PAID FOR THEIR MEDICATION AND IT WAS DELIVERED PER TEXT FROM JANNIE PATIENT STATES: I PAY GOOD MONEY THEIR, ITS MY HOME AND I DON'T WANT TO GO TO A HALF-WAY FOR MY ABX CM TO FOLLOW UP IN AM
[2025-01-31 15:13] LABS: C DIFFICILE TOXIN A/B Not Detected (Not Detected); ENTEROAGGREGATIVE ECOLI Not Detected (Not Detected); GIARDIA LAMBLIA Not Detected (Not Detected); PLESIOMONAS SHIGELOIDES Not Detected (Not Detected); SAPOVIRUS Not Detected (Not Detected); SHIGELLA/ENTEROINVASIVE E COLI Not Detected (Not Detected); VIBRIO Not Detected (Not Detected); VIBRIO CHOLERAE Not Detected (Not Detected)
[2025-02-01] VITALS: BP 132/69; PULSE 58; RESP 20; TEMP 98.1
[2025-02-01 04:00] VITALS: BP 110/57; PULSE 54; RESP 20; TEMP 97.9
[2025-02-01 08:00] VITALS: BP 115/69; PULSE 62; RESP 18; TEMP 98
[2025-02-01 09:02] VITALS: O2SAT 97
[2025-02-01 11:20] VITALS: BP 124/67; PULSE 61; RESP 18; TEMP 98.1
--- NOTE | 2025-02-01 11:23 | NUR ---
[facility] Follow-up: Patient re-assessed by wound healing team. See wound assessment, wound resolved. Assessment and recommendations provided to primary nurse. Education provided. Addendum: 02/01/25 at 1419 by PRADIP CHAMORRO RN RN/ Amended: Links added.
--- NOTE | 2025-02-01 11:32 | NUR ---
CM NOTE: POC CM VERIFIED IV ABX W/[facility] AT [facility], IV ABX APPROVED AND DELIVERED, FAMILY PAID COPAY. CM VERIFIED W/[facility], PT HAS APPROVAL, AWARE ANTICIPATE DCP TODAY, PRIMARY NURSE TO GIVE REPORT ONCE PT READY TO DC. CM ARRANGED AND SENT REQUEST FOR EMS W/[facility] VIA SECURE EMAIL. PRIMARY NURSE MERARI UPDATED. PT SAFE TO DC BACK TO [facility]. CM TO CONTINUE TO FOLLOW UP. Addendum: 02/01/25 at 1515 by MARY BLANCHARD LVN CM Amended: Links added.
--- NOTE | 2025-02-01 11:37 | PN ---
[facility] PROGRESS NOTE Date of Service: Feb 01, 2025 Time of Service: 11:36 / SUBJECTIVE: [ ] Admission date 01/24/2025 PCP Manuel Alas MD Chief complaint body ache general body weakness This is a 74-year-old female was brought in by EMS patient resides in [facility]. She presents in ED with general body weakness on arrival she was hypotensive ER initiated fluid resuscitation improved blood pressure significantly. Patient reports she was diagnosed of COVID-19 five days ago and she has been having diarrhea for the past four days. She presents with a BUN42 and creatinine of 2.0 severe dehydrated. Patient is denies chest pain she does appear dyspneic during our conversation patient's D-dimer was elevated we will get a CT chest. The patient has a history of stroke with right side weakness ol 01/25/2025 the patient remains in ER reviewed labs potassium 3.0 creatinine improved significantly to 1.1 From 2.0. Patient denied chest pain or shortness for breath we will continue to monitor patient closely 01/26/25 patient is is asleep awakened per verbal stimuli. Afebrile diarrhea has someone subsided. Urine cultures waiting for final report. Patient we will be returning back to assisted living waiting for cultures. 01/27/25 patient is seen earlier patient appears chronically ill, alert oriented. no diarrhea reported urine cultures returned back with ESBL patient will require IV antibiotics for the next 14 days case management for SNF placement primary nurse reports no events overnight 01/28 The patient tolerating IV antibiotics refused SNF: case management arranging Home Health for IV antibiotics. Patient reports no complaints overnight. She denied chest pain or shortness for breath 01/30/25 : pt seen along with RN , no new complaints. Patient is pending acceptance to the assisted living. Continue with IV antibiotics. 01/31 patient is seen and examined at bedside, case discussed with the RN, no acute events overnight, discussed with case management, pending acceptance to [facility] for IV antibiotics. Patient with PICC line in place. 02/01 patient is seen and examined at bedside, case discussed with the RN, no acute events overnight, discussed with case management, pending acceptance to [facility] for IV antibiotics. Patient with PICC line in place. REVIEW OF SYSTEMS A14 point ROS was obtained all relevant positives were documented otherwise ROS negative PHYSICAL EXAM GENERAL APPEARANCE: The patient is awake, alert, and oriented, in no acute cardiopulmonary distress. NEUROLOGICAL: Cranial nerves II-XII grossly intact. Motor is 5/5 in bilateral upper and lower extremities proximal to distal. No sensory deficits. HEENT: Face is symmetric. Pupils are equal and reactive. Extraocular movements are intact. NECK: Supple. No JVD. No thyromegaly. No submental, submandibular, pre- /postauricular, occipital or supraclavicular lymphadenopathy. CHEST: Normal chest expansion. No Telemetry. LUNGS: Absence of any rales, rhonchi or any wheezing. CARDIOVASCULAR: Regular. S1 and S2 normal. No appreciable rubs, murmurs or gallops. ABDOMEN: Soft, nontender, and nondistended. There is no rebound, voluntary guarding, or rigidity. : Deferred. No Rinaldi. EXTREMITIES: Non-edematous and not cyanotic. No clubbing. Good capillary refill. SKIN: No skin breakdown. Vital Signs (last 8hr) Date Time Temp Pulse Resp B/P (MAP) Pulse Ox O2 Delivery O2 Flow Rate FiO2 02/01/25 11:20 98.1 61 18 124/67 Room Air 02/01/25 09:02 97 Room Air* 0 21 02/01/25 08:00 98.1 62 18 115/69 96 Room Air 02/01/25 04:00 97.9 54 20 110/57 97 Room Air LABS: Laboratory: Test 02/01/25 10:53 01/31/25 09:23 Range/Units Whole Blood Glucose 206 #H 70-110 MG/DL Bedside Glucose Comment Notified Nurse White Blood Count 3.9 L 4.8-10.8 K/uL Red Blood Count 4.07 4.00-5.50 MIL/uL Hemoglobin 11.2 L 12.0-16.0 g/dL Hematocrit 36.7 36-48 % Mean Corpuscular Volume 90.2 79-99 fL Mean Corpuscular Hemoglobin 27.5 27.0-33.0 pg Mean Corpuscular Hemoglobin Concent 30.5 L 32.0-36.0 g/dL Red Cell Distribution Width 18.7 H 11.0-15.5 % Platelet Count 182 130-400 K/uL Mean Platelet Volume 11.8 H 7.5-10.5 fL Nucleated Red Blood Cells 0.0 0.0-0.19 % Sodium Level 139 136-145 mmol/L Potassium Level 3.5 3.5-5.1 mmol/L Chloride Level 104 101-111 mmol/L Carbon Dioxide Level 27 21-32 mmol/L Blood Urea Nitrogen 13 7-18 mg/dL Creatinine 1.0 0.5-1.0 mg/dL Glomerular Filtration Rate Calc 60 >90 mL/min Random Glucose 113 #H 70-105 mg/dL Total Calcium 8.4 L 8.5-10.1 mg/dL Magnesium Level 1.90 1.80-2.40 mg/dL Total Bilirubin 0.6 0.2-1.0 mg/dL Aspartate Amino Transf (AST/SGOT) 15 10-37 U/L Alanine Aminotransferase (ALT/SGPT) 11 L 12-78 U/L Alkaline Phosphatase 83 50-136 U/L Total Protein 6.3 6.0-8.3 g/dL Albumin 2.6 L 3.5-5.0 g/dL Current Medications Medications (Trade) Dose Ordered Sig/Angelica Route PRN Reason Start Time Stop Time Status Last Admin Dose Admin Acetaminophen (TYLenol 325MG TAB) 650 mg Q4H PRN PO TEMPERATURE GREATER THAN 101.5 01/24/25 16:00 02/23/25 15:59 Amlodipine Besylate (NorvASC 5MG TAB) 5 mg DAILY PO 01/27/25 09:00 02/26/25 08:59 02/01/25 08:54 5 MG Atorvastatin Calcium (LIPItor 40MG) 40 mg HS PO 01/26/25 21:00 02/25/25 20:59 01/31/25 20:19 40 MG Ceftriaxone Sodium (ROCEphine 1G INJ) 1 gm Q24H IVPB 01/25/25 16:00 01/27/25 08:30 DC 01/26/25 18:08 1 GM Ceftriaxone Sodium (Rocephin 2gm Inj) 2 gm ONCE IVPB 01/24/25 13:30 01/24/25 13:19 DC Clopidogrel Bisulfate (plaVIX 75MG) 75 mg DAILY PO 01/27/25 09:00 02/26/25 08:59 02/01/25 08:54 75 MG Dextrose (D50w) 50 ml AD PRN IV HYPOGLYCEMIA PROTOCOL 01/24/25 16:30 02/23/25 16:29 01/28/25 06:01 50 ML Folic Acid 1 mg/ Thiamine HCl 100 mg/Sodium Chloride 1,010 ml @ 100 mls/hr Q24H IV 01/25/25 18:00 01/27/25 08:59 DC 01/26/25 18:08 100 MLS/HR Gabapentin (NEURontin 100 mg CAP) 100 mg TID PO 01/26/25 14:00 02/25/25 13:59 02/01/25 08:55 100 MG Glucagon (Glucagon 1mg Kit) 1 mg AD PRN IM HYPOGLYCEMIA PROTOCOL 01/24/25 16:30 02/23/25 16:29 Home Med (Home Medication) (Levocetirizine Dihydrochloride 1 TAB) HS PO 01/26/25 21:00 02/25/25 20:59 Hydralazine HCl (APRESOLine 20MG INJ) 5 mg Q4H PRN IV ADMINISTER FOR SBP > 160 01/24/25 16:00 02/23/25 15:59 Hydrochlorothiazide (hydroCHLOROthiazide 25MG) 12.5 mg DAILY PO 01/27/25 09:00 02/26/25 08:59 02/01/25 08:54 12.5 MG Insulin Glargine (LANtus 100 UNITS/ML 10 ML VIAL) 25 units HS SQ 01/26/25 21:00 02/25/25 20:59 01/30/25 20:10 25 UNITS Insulin Human Regular (humuLIN R 100 UNIT/ML 3ML) 5 unit TIDAC SQ 01/26/25 17:00 02/25/25 16:59 01/31/25 16:29 5 UNIT Insulin Human Regular (humuLIN R 100 UNIT/ML 3ML) INSULIN SLIDING SCAL... ACHS SQ 01/25/25 11:30 02/24/25 11:29 01/30/25 12:00 12 UNIT Lactulose (Constulose 20gm/ 30ml Udcup) 20 gm BID PRN PO CONSTIPATION 01/24/25 16:00 02/23/25 15:59 Losartan Potassium (CozAAR 100MG TAB) 100 mg DAILY PO 01/27/25 09:00 02/26/25 08:59 02/01/25 08:54 100 MG Magnesium Sulfate 50 ml @ 0 mls/hr PROTOCOL IV 01/25/25 09:30 02/24/25 09:29 01/29/25 00:09 0 MLS/HR Magnesium Sulfate 50 ml @ 0 mls/hr PROTOCOL PRN IV low mag level 01/24/25 16:00 01/25/25 09:26 DC Magnesium Sulfate 50 ml @ 0 mls/hr PROTOCOL PRN IV Low magnesium level 01/24/25 16:30 01/25/25 09:26 DC Miscellaneous Medication (Losartan/ Hydrochlorothiazide (Losartan-Hctz 100-12.5 mg Tab)) 1 tab DAILY PO 01/27/25 09:00 01/26/25 12:01 DC Montelukast Sodium (SinguLAIR) 10 mg DAILY PO 01/27/25 09:00 02/26/25 08:59 02/01/25 08:54 10 MG Multivitamins/ Minerals 10 ml/ Folic Acid 1 mg/ Thiamine HCl 100 mg/Sodium Chloride 1,010 ml @ 100 mls/hr DAILY IV 01/24/25 18:00 01/25/25 09:32 DC 01/24/25 18:52 100 MLS/HR Pantoprazole Sodium (PROTonix 40MG INJ) 40 mg DAILY IVP 01/25/25 09:00 02/24/25 08:59 02/01/25 08:54 40 MG Piperacillin Sod/ Tazobactam Sod (Zosyn 3.375gm+NS 50ml) 3.375 gm Q8H IV 01/27/25 09:00 02/06/25 08:59 02/01/25 08:54 3.375 GM Potassium Chloride 100 ml @ 100 mls/hr AD PRN IV POTASSIUM PROTOCOL 01/24/25 16:00 01/25/25 09:28 DC 01/25/25 06:56 100 MLS/HR Potassium Chloride 100 ml @ 100 mls/hr AD PRN IV POTASSIUM PROTOCOL 01/24/25 16:30 02/23/25 16:29 Potassium Chloride (K-Dur/Klor-Con 20meq) 20 meq AD PRN PO POTASSIUM PROTOCOL 01/24/25 16:00 01/25/25 09:29 DC Potassium Chloride (K-Dur/Klor-Con 20meq) 20 meq AD PRN PO POTASSIUM PROTOCOL 01/24/25 16:30 02/23/25 16:29 01/26/25 12:42 20 MEQ Potassium Chloride (KCl 10% Elixir 20meq/15ml) 20 meq AD PRN PO POTASSIUM PROTOCOL 01/24/25 16:00 01/25/25 09:29 DC Potassium Chloride (KCl 10% Elixir 20meq/15ml) 20 meq AD PRN PO POTASSIUM PROTOCOL 01/24/25 16:30 02/23/25 16:29 01/26/25 08:12 20 MEQ Sodium Chloride 1,000 ml @ 0 mls/hr ONCE IV 01/24/25 13:30 01/24/25 13:19 DC Wound Care/ Dressing Products (Venelex Ointment) 1 gm BID TP 02/01/25 21:00 02/01/25 11:29 DC Wound Care/ Dressing Products (Venelex Ointment) Apply to left buttock BID TP 01/26/25 21:00 02/25/25 20:59 02/01/25 08:55 1 GM DIAGNOSTICS / RADIOLOGY: [ ] Assessment and plan: Sepsis POA UTI with Gram-negative ESBL POA Elevated D-dimer rule out PE CHACE secondary to dehydration POA resolved Acute gastroenteritis diarrhea POA Electrolyte derangement hyponatremia, hypomagnesemia hypokalemia POA Hypoglycemic POA COVID-19 infection Generalized body weakness 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 Labs cbc, cmp, mag surveillance Replace electrolytes as needed as per protocol to keep potassium above 4.0 magnesium 2.0. Home medications reviewed and reconciled Fall precautions, decubitus precautions offloading reposition every 2 hours Supportive measures: DVT ppx, GI ppx all questions answered YOLANDE BOWEN MD Feb 01, 2025 11:37
--- NOTE | 2025-02-01 15:01 | NUR ---
[facility] Field [facility] Follow-up This CM called [facility] at [phone], opt. [phone] and requested to speak with the windchill administrator on duty. Transferred to [facility]. Call went to [facility]. Left and provided this CM's name, phone number, and reason for call. CM to continue to follow.
--- NOTE | 2025-02-01 15:41 | NUR ---
SPOKE TO ANGELA FROM [facility] TO GIVE REPORT. NURSE WAS NOT AVAILABLE AT THE TIME. THEY WILL CALL BACK FOR REPORT. LET THEM KNOW EMS WAS NOTIFIED ALREADY OF PATIENT AWAITING TRANSPORTATION.
--- NOTE | 2025-02-01 15:46 | PN ---
PROGRESS NOTE Date of Service: Feb 01, 2025 Time of Service: 15:43 SUBJECTIVE: Patient is evaluated at bedside in room 432 for wound care follow up of stage II ulcer to left buttock. Patient awake, alert, and oriented x 3. Patient denies any complaints at this time. REVIEW OF SYSTEMS CONSTITUTIONAL: Denies fever, chills, or fatigue. HEAD/FACE: No signs of trauma. EENT: Denies eye pain, blurred vision, double vision, or light sensitivity. RESPIRATORY: Denies shortness of breath, cough, wheezing CARDIOVASCULAR: Denies chest pain, palpitation, syncope GASTROINTESTINAL/ABDOMINAL: Denies abdominal pain, constipation, diarrhea, nausea or vomiting GENITOURINARY: Denies dysuria or hematuria. MUSCULOSKELETAL: Denies joint pain, tenderness, or trauma. INTEGUMENTARY: Denies rash or itchiness NEUROLOGICAL/PSYCH: Denies anxiety, depression, heat or cold intolerance. Right sided weakness PHYSICAL EXAM EYES: Anicteric. Pupils equal and reactive. HENT: No oral thrush seen, moist Oral mucosa NECK: Supple, no JVD or thyromegaly. LUNGS: Good air entry. No rales, no rhonchi. CARDIOVASCULAR: S1, S2 regular. No murmur heard. ABDOMEN: Soft, non tender, bowel sounds present, no organomegaly CENTRAL NERVOUS SYSTEM: Awake, alert, oriented x 3. Right sided weakness SKIN: Stage II ulcer to left buttock noted with 100% epithelized tissue, no periwound erythema noted, no drainage noted. Wound is resolved. LYMPHATICS: No peripheral lymphadenopathy MUSCULOSKELETAL: No joint swelling, erythema or tenderness. EXTREMITIES: No cyanosis or clubbing BACK: No deformity, no pressure ulcer. GENITOURINARY: No dysuria or hematuria Vital Signs (last 8hr) Date Time Temp Pulse Resp B/P (MAP) Pulse Ox O2 Delivery O2 Flow Rate FiO2 02/01/25 11:20 98.1 61 18 124/67 Room Air 02/01/25 09:02 97 Room Air* 0 21 02/01/25 08:00 98.1 62 18 115/69 96 Room Air LABS: Laboratory: Test 02/01/25 10:53 01/31/25 09:23 Range/Units Whole Blood Glucose 206 #H 70-110 MG/DL Bedside Glucose Comment Notified Nurse White Blood Count 3.9 L 4.8-10.8 K/uL Red Blood Count 4.07 4.00-5.50 MIL/uL Hemoglobin 11.2 L 12.0-16.0 g/dL Hematocrit 36.7 36-48 % Mean Corpuscular Volume 90.2 79-99 fL Mean Corpuscular Hemoglobin 27.5 27.0-33.0 pg Mean Corpuscular Hemoglobin Concent 30.5 L 32.0-36.0 g/dL Red Cell Distribution Width 18.7 H 11.0-15.5 % Platelet Count 182 130-400 K/uL Mean Platelet Volume 11.8 H 7.5-10.5 fL Nucleated Red Blood Cells 0.0 0.0-0.19 % Sodium Level 139 136-145 mmol/L Potassium Level 3.5 3.5-5.1 mmol/L Chloride Level 104 101-111 mmol/L Carbon Dioxide Level 27 21-32 mmol/L Blood Urea Nitrogen 13 7-18 mg/dL Creatinine 1.0 0.5-1.0 mg/dL Glomerular Filtration Rate Calc 60 >90 mL/min Random Glucose 113 #H 70-105 mg/dL Total Calcium 8.4 L 8.5-10.1 mg/dL Magnesium Level 1.90 1.80-2.40 mg/dL Total Bilirubin 0.6 0.2-1.0 mg/dL Aspartate Amino Transf (AST/SGOT) 15 10-37 U/L Alanine Aminotransferase (ALT/SGPT) 11 L 12-78 U/L Alkaline Phosphatase 83 50-136 U/L Total Protein 6.3 6.0-8.3 g/dL Albumin 2.6 L 3.5-5.0 g/dL PROBLEM LIST : Medical Problems: Stage II to left buttock-Resolved PLAN: Offloading/reposition q 2 hours Comorbidities per primary care team Further Management per hospital course. Follow Up LIDIA JUNG NP Feb 01, 2025 15:46
--- NOTE | 2025-02-01 16:05 | NUR ---
REPORT WAS GIVEN TO OSCAR FROM [facility]. REPORT [facility] LASHA [facility]
[2025-02-01 16:18] VITALS: BP 116/89; PULSE 78; RESP 18; TEMP 98.5
--- NOTE | 2025-02-01 16:34 | NUR ---
DISCHARGE PATIENT WAS EDUCATED ON THE IMPORTANCE OF ABX TREATMENT BEING COMPLETED. PATIENT VERBALIZED UNDERSTANDING. PT WAS TRANSPORTED TO THE MAIN ENTRANCE BY EMS VIA STRETCHER. NO S/S OF DISTRESS NOTED.
[2025-02-01] MEDS ORDERED: BALSAM PERU/CASTOR OIL 60 GM TUBE TP SCH (21:00)
--- NOTE | 2025-02-02 08:33 | DS ---
Discharge Summary Hospital Course Summary: Date of service 02/01/2025 Patient admitted to the hospital January 24, 2025 with the following history of the present illness: Admission date 01/24/2025 PCP Manuel Alas MD Chief complaint body ache general body weakness This is a 74-year-old female was brought in by EMS patient resides [facility]. She presents in ED with general body weakness on arrival she was hypotensive ER initiated fluid resuscitation improved blood pressure significantly. Patient reports she was diagnosed of COVID-19 five days ago and she has been having diarrhea for the past four days. She presents with a BUN42 and creatinine of 2.0 severe dehydrated. Patient is denies chest pain she does appear dyspneic during our conversation patient's D-dimer was elevated we will get a CT chest. The patient has a history of stroke with right side weakness ol HOSPITAL COURSE 01/25/2025 the patient remains in ER reviewed labs potassium 3.0 creatinine improved significantly to 1.1 From 2.0. Patient denied chest pain or shortness for breath we will continue to monitor patient closely 01/26/25 patient is is asleep awakened per verbal stimuli. Afebrile diarrhea has someone subsided. Urine cultures waiting for final report. Patient we will be returning back to assisted living waiting for cultures. 01/27/25 patient is seen earlier patient appears chronically ill, alert oriented. no diarrhea reported urine cultures returned back with ESBL patient will require IV antibiotics for the next 14 days case management for SNF placement primary nurse reports no events overnight 01/28 The patient tolerating IV antibiotics refused SNF: case management arranging Home Health for IV antibiotics. Patient reports no complaints overnight. She denied chest pain or shortness for breath 01/30/25 : pt seen along with RN , no new complaints. Patient is pending acceptance to the assisted living. Continue with IV antibiotics. 01/31 patient is seen and examined at bedside, case discussed with the RN, no acute events overnight, discussed with case management, pending acceptance to [facility] for IV antibiotics. Patient with PICC line in place. 02/01 patient is seen and examined at bedside, case discussed with the RN, no acute events overnight, discussed with case management, pending acceptance to [facility] for IV antibiotics. Patient with PICC line in place. PATIENT ACCEPTED TO ASSISTED LIVING FOR CONTINUATION OF MEDICAL CARE. PATIENT TO CONTINUE ANTIBIOTICS FOR TOTAL OF 14 DAYS. 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 POA left buttock stage 2 pressure ulcer, POA Home Medications: Reported Medications Insulin Degludec (Tresiba Flextouch U-100) 100 Unit/Ml (3 Ml) Insuln.pen, 25 UNIT SQ HS, SYRINGE 01/25/25 Tirzepatide (Mounjaro) 2.5 Mg/0.5 Ml Pen.injctr, 2.5 MG SQ QWEEK 01/25/25 Montelukast Sodium (Montelukast Sodium) 10 Mg Tablet, 1 TAB PO DAILY for 30 Days, #30 TAB 0 Refills 01/25/25 Metformin HCl (Metformin HCl ER) 500 Mg Tab.er.24, 1 TAB PO DAILY for 30 Days, #30 TAB 0 Refills 01/25/25 Losartan/Hydrochlorothiazide (Losartan-Hctz 100-12.5 mg Tab) 100 Mg-12.5 Mg Tablet, 1 TAB PO DAILY for 30 Days, #30 TAB 0 Refills 01/25/25 Levocetirizine Dihydrochloride (Levocetirizine Dihydrochloride) 5 Mg Tablet, 1 TAB PO HS for 30 Days, #30 TAB 0 Refills 01/25/25 Insulin Regular, Human (Humulin R) 100 Unit/Ml Vial, 5 UNITS SQ TIDAC, VIAL 01/25/25 Gabapentin (Gabapentin) 100 Mg Capsule, 1 CAP PO TID for 30 Days, #90 CAP 0 Refills 01/25/25 Clopidogrel Bisulfate (Clopidogrel) 75 Mg Tablet, 1 TAB PO DAILY for 30 Days, #30 TAB 0 Refills 01/25/25 Atorvastatin Calcium (Atorvastatin Calcium) 40 Mg Tablet, 1 TAB PO HS for 30 Days, #30 TAB 0 Refills 01/25/25 Amlodipine Besylate (Amlodipine Besylate) 5 Mg Tablet, 1 TAB PO DAILY for 30 Days, #30 TAB 0 Refills 01/25/25 Time spent arranging discharge: 31-60 minutes YOLANDE BOWEN MD Feb 02, 2025 08:33
== END 2025-02-01 16:40 | disposition home health service (06) | DRG 871 ==
LOC: EDH 13:08 → EDHIP 15:43 → 4AH 01-25 22:16
PROVIDERS: ADMIT Internal Medicine; ATTEND Internal Medicine
PROC: 05HA33Z Insertion of Infusion Device into Left Brachial Vein, Percutaneous Approach (ICD-10-PCS; principal; 2025-01-27)
PROC: B54NZZA Ultrasonography of Left Upper Extremity Veins, Guidance (ICD-10-PCS; 2025-01-27)
DX: A41.9 Sepsis, unspecified organism (principal); U07.1 COVID-19; N17.9 Acute kidney failure, unspecified; E87.1 Hypo-osmolality and hyponatremia; I69.351 Hemiplegia and hemiparesis following cerebral infarction affecting right dominant side; N39.0 Urinary tract infection, site not specified; Z16.12 Extended spectrum beta lactamase (ESBL) resistance; K52.9 Noninfective gastroenteritis and colitis, unspecified; E86.0 Dehydration; E11.649 Type 2 diabetes mellitus with hypoglycemia without coma; L89.322 Pressure ulcer of left buttock, stage 2; I10 Essential (primary) hypertension; E03.9 Hypothyroidism, unspecified; E78.00 Pure hypercholesterolemia, unspecified; I25.10 Atherosclerotic heart disease of native coronary artery without angina pectoris; E87.6 Hypokalemia; E83.42 Hypomagnesemia; Z79.899 Other long term (current) drug therapy
CPT/HCPCS: 36415; 36556; 71045; 71250; 80048; 80053; 80061; 80076; 81001; 82550; 82948; 83605; 83735; 84132; 84443; 84484; 85025; 85027; 85378; 85610; 85730; 87040; 87086; 87186; 87507; 93005; 93970; 96361; 96365; 97161; 99291; C1894; G0378; J0696; J1815; J2470; J2543; J3411; J3475; J3480; J3490; J7030; J7070; C1750

== ENCOUNTER 2025-03-17 16:51 | Inpatient (IN) | payer OTHER ==
[~2025-03-17] VITALS: Ht 162.6 cm; Wt 83.9 kg
[~2025-03-17 16:51] MED LIST changes: -ATOR40TA69 PO; +ATOR40TA71 PO; +INSU100V3 SQ; -INSU500V SQ; -LEVO50TA11 PO; +LEVO5TAB13 PO; +LOSA1TAB42 PO; -METF-1150 PO; +METF-526 PO; -NITR100C4 PO; +TIRZ2.5P SQ
--- NOTE | 2025-03-17 17:38 | ERN ---
General Chief Complaint: Hypoglycemia Stated Complaint: HYPOGLYCEMIA Time Seen by MD: 16:59 Source: patient History of Present Illness Initial Comments Patient is a 72-year-old female coming in to be evaluated for low blood sugar. Per patient she has a history of diabetes earlier today she had injected 5 units of insulin but states it dropped her sugar too low she felt weak and decided to call EMS. EMS evaluated glucose on patient her glucose showed low she received d 5 and was brought in for further evaluation. Allergies: Coded Allergies: No Known Allergies (Unverified Allergy, Unknown, 02/23/24) Home Meds Reported Medications Insulin Degludec (Tresiba Flextouch U-100) 100 Unit/Ml (3 Ml) Insuln.pen, 25 UNIT SQ HS, SYRINGE 01/25/25 Tirzepatide (Mounjaro) 2.5 Mg/0.5 Ml Pen.injctr, 2.5 MG SQ QWEEK 01/25/25 Montelukast Sodium (Montelukast Sodium) 10 Mg Tablet, 1 TAB PO DAILY for 30 Days, #30 TAB 0 Refills 01/25/25 Metformin HCl (Metformin HCl ER) 500 Mg Tab.er.24, 1 TAB PO DAILY for 30 Days, #30 TAB 0 Refills 01/25/25 Losartan/Hydrochlorothiazide (Losartan-Hctz 100-12.5 mg Tab) 100 Mg-12.5 Mg Tablet, 1 TAB PO DAILY for 30 Days, #30 TAB 0 Refills 01/25/25 Levocetirizine Dihydrochloride (Levocetirizine Dihydrochloride) 5 Mg Tablet, 1 TAB PO HS for 30 Days, #30 TAB 0 Refills 01/25/25 Insulin Regular, Human (Humulin R) 100 Unit/Ml Vial, 5 UNITS SQ TIDAC, VIAL 01/25/25 Gabapentin (Gabapentin) 100 Mg Capsule, 1 CAP PO TID for 30 Days, #90 CAP 0 Refills 01/25/25 Clopidogrel Bisulfate (Clopidogrel) 75 Mg Tablet, 1 TAB PO DAILY for 30 Days, #30 TAB 0 Refills 01/25/25 Atorvastatin Calcium (Atorvastatin Calcium) 40 Mg Tablet, 1 TAB PO HS for 30 Day s, #30 TAB 0 Refills 01/25/25 Amlodipine Besylate (Amlodipine Besylate) 5 Mg Tablet, 1 TAB PO DAILY for 30 Days, #30 TAB 0 Refills 01/25/25 Past Medical History Past Medical History: Diabetes-Type II, High Cholesterol, Hypertension Medical History Other: FLACCID HEMIPLEGIA AFFECTING RIGHT SIDE Past Surgical History: Family History Family History: Negative Social History Social History: Negative Female( History) History: Not Applicable ROS Dictation CONSTITUTIONAL: No chills, no fever, weakness, no diaphoresis, no malaise. HEAD/FACE: No signs of trauma. EENT: No eye pain, no blurred vision, no tearing, no double vision, no ear pain, no ear discharge, no nose pain, no nasal congestion, no throat pain, no throat swelling, no mouth pain. RESPIRATORY: No cough, no orthopnea, no SOB, no stridor, no wheezing. CARDIOVASCULAR: No chest pain, no edema, no palpitations, no syncope. GASTROINTESTINAL/ABDOMINAL: No abdominal pain, no constipation, no diarrhea, no nausea, no vomiting. GENITOURINARY: No abnormal discharge, no dysuria, no frequent urination, no hematuria. No complaints of pain in the genitals. MUSCULOSKELETAL: No back pain, no gout, no joint pain, no joint swelling, no muscle pain, no muscle stiffness, no neck pain. INTEGUMENTARY: No change in color, no change in hair/nails, no dryness, no lesion, no lumps, no rash. NEUROLOGICAL/PSYCH: No anxiety, not depressed, no emotional problem, no headache, no numbness, no pre-existing deficit, no history of seizures, no tremors, no weakness. HEMATOLOGIC/LYMPHATIC: Not anemic, no history of blood clots, no apparent bleeding, no bruising, glands not swollen. All Systems Negative, Except as Noted. Physical Exam Physical Exam Dictation VITAL SIGNS: Reviewed. GENERAL APPEARANCE: Alert, oriented x3, no acute distress, obese. HEAD AND FACE: Non-traumatic. EYES: PERRL, pink conjunctivas, eyelid no trauma, anterior chamber clear. EARS: Pinnas intact and no signs of trauma or erythema. Ear canals clear and no discharge. TMs no erythema. NOSE: No discharge, no bleeding. OROPHARYNX: Mouth normal, teeth no caries, tongue pink. Pharynx clear, no e rythema. Tonsils no exudates, no abscesses noted. Mucous membrane moist. NECK: Supple, non-tender, no thyromegaly, no masses, no JVD, no bruits. BREAST: Deferred. CHEST: No tenderness, no crepitus, no paradoxical movement, no retractions. LUNGS: Clear, well-ventilated, symmetric, no rales, no wheezing, no rhonchi, no stridor, good breath sounds bilaterally. HEART: Regular rate, regular rhythm, no murmur, no gallops. VASCULAR: No peripheral edema. ABDOMEN: Soft, positive bowel sounds, nondistended, no guarding, nontender, no rebound, no masses no hepatomegaly, no splenomegaly, no Vick's sign, no hernias. RECTAL: Deferred. GENITAL: Deferred. NEUROLOGICAL: Normal speech, gross motor function intact, gross sensory function intact. MUSCULOSKELETAL: Neck nontender, full range of motion, back nontender, full range of motion. EXTREMITIES: Nontender, full range of motion. SKIN: Color pink, dry, no turgor, no rash, no lacerations, no abrasions, no contusions. LYMPHATICS: Deferred. Results Laboratory and Microbiology Lab and Micro Result Laboratory Tests Test 03/17/25 17:29 03/17/25 17:44 03/17/25 18:11 Whole Blood Glucose 44 MG/DL (70-110) *L 47 MG/DL (70-110) *L White Blood Count 11.9 K/uL (4.8-10.8) H Red Blood Count 3.65 MIL/uL (4.00-5.50) L Hemoglobin 10.9 g/dL (12.0-16.0) L Hematocrit 34.0 % (36-48) L Mean Corpuscular Volume 93.2 fL (79-99) Mean Corpuscular Hemoglobin 29.9 pg (27.0-33.0) Mean Corpuscular Hemoglobin Concent 32.1 g/dL (32.0-36.0) Red Cell Distribution Width 15.9 % (11.0-15.5) H Platelet Count 226 K/uL (130-400) Mean Platelet Volume 11.9 fL (7.5-10.5) H Immature Granulocyte % (Auto) 0.3 % (0-1) Neutrophils (%) (Auto) 85.6 % (40.0-77.0) H Lymphocytes (%) (Auto) 5.2 % (21.0-51.0) L Monocytes (%) (Auto) 8.3 % (3.0-13.0) Eosinophils (%) (Auto) 0.3 % (0.0-8.0) Basophils (%) (Auto) 0.3 % (0.0-5.0) Neutrophils # (Auto) 10.2 K/uL (1.8-7.7) H Lymphocytes # (Auto) 0.6 K/uL (1.0-4.8) L Monocytes # (Auto) 1.0 K/uL (0.1-1.0) Eosinophils # (Auto) 0.04 K/uL (0.00-0.70) Basophils # (Auto) 0.04 K/uL (0.00-0.20) Absolute Immature Granulocyte (auto 0.04 K/uL (0-1) Nucleated Red Blood Cells 0.0 % (0.0-0.19) Labs Reviewed?: Yes MDM MDM: Differential diagnosis: Hypoglycemia,dm Rationale: Tests considered and ordered secondary to shared decision making include: Previous outside records reviewed: Old ER visits. Risk of complication and/or morbidity or mortality of patient management: None Medications-Per medication reconciliation Need for hospitalization: Patient does meet criteria for hospitalization. Need for emergency major/minor surgery: No There are no social concerns with this patient. Prescription drug management Prescriptions will include symptomatic care Patient's prior external medical records from other ER visits were reviewed by farzad perez as indicated. Prior testing and results from previous visits were reviewed. Prior tests were taken into account with medical decision making and resource utilization, independent historian/historians were used to obtain complete medical history. I independently interpreted the test that were performed, results were reviewed by me and considered findings on radiology if ordered. Medical management and examination interpretation discussions were had by me with other qualified healthcare professionals as indicated for the patient's care. Pt will be admitted under the care of HOSPITALIST. ED Course Orders Procedure Category Date Status Time Cbc With Differential LAB 03/17/25 In Process 16:59 Basic Metabolic Panel LAB 03/17/25 In Process 16:59 Dextrose 10%-Water PHA 03/17/25 In Process (D10w) 17:30 Current Medications Medications (Trade) Dose Ordered Sig/Angelica Route PRN Reason Start Time Stop Time Status Last Admin Dose Admin Dextrose 1,000 ml @ 0 mls/hr Q0M IV 03/17/25 17:30 04/16/25 17:29 03/17/25 17:41 Vital Signs Date Time Temp Pulse Resp B/P (MAP) Pulse Ox O2 Delivery O2 Flow Rate FiO2 03/17/25 17:44 98.2 88 16 107/52 98 Room Air* 0 21 03/17/25 16:53 98.2 91 18 104/57 98 Room Air 0 Critical Care Note Comments CRITICAL CARE PROCEDURE NOTE AUTHORIZED AND PERFORMED BY: ME TOTAL CRITICAL CARE TIME: APPROXIMATELY 36 MINUTES DUE TO A HIGH PROBABILITY OF CLINICALLY SIGNIFICANT, LIFE THREATENING DETERIORATION, THE PATIENT REQUIRED MY HIGHEST LEVEL OF PREPAREDNESS TO INTERVENE EMERGENTLY AND I PERSONALLY SPENT THIS CRITICAL CARE TIME DIRECTLY AND PERSONALLY MANAGING THE PATIENT. THIS CRITICAL CARE TIME INCLUDED OBTAINING A HISTORY; EXAMINING THE PATIENT; PULSE OXIMETRY; ORDERING AND REVIEW OF STUDIES; ARRANGING URGENT TREATMENT WITH DEVELOPMENT OF A MANAGEMENT PLAN; EVALUATION OF PATIENT'S RESPONSE TO TREATMENT; FREQUENT REASSESSMENT; AND, DISCUSSIONS WITH OTHER PROVIDERS. THIS CRITICAL CARE TIME WAS PERFORMED TO ASSESS AND MANAGE THE HIGH PROBABILITY OF IMMINENT, LIFE-THREATENING DETERIORATION THAT COULD RESULT IN MULTI-ORGAN FAILURE. IT WAS EXCLUSIVE OF SEPARATELY BILLABLE PROCEDURES AND TREATING OTHER PATIENTS AND TEACHING TIME. PLEASE SEE MDM SECTION AND THE REST OF THE NOTE FOR FURTHER INFORMATION ON PATIENT ASSESSMENT AND TREATMENT. DX & DISP Disposition: Inpatient Decision to Admit Time: 18:21 Departure Impression: Primary Impression: Hypoglycemia associated with type 2 diabetes mellitus Condition: Stable Referrals: LIZBETH MARIE MD (PCP) FLAVIA FORMAN MD Mar 17, 2025 17:38
[2025-03-17] MEDS: DEXTROSE 10%-WATER 1,000 ML IV SCH (17:41)
[2025-03-17 17:57] LABS: IMMATURE GRANULOCYTE ABSOLUTE 0.04 K/uL (0-1); NUCLEATED RED BLOOD CELLS 0.0 % (0.0-0.19); PLATELET COUNT (AUTO) 226 K/uL (130-400); RED BLOOD CELL COUNT(AUTO) 3.65 MIL/uL (4.00-5.50); RED CELL DISTRIBUTION WIDTH 15.9 % (11.0-15.5); WHITE BLOOD COUNT (AUTO) 11.9 K/uL (4.8-10.8)
[2025-03-17 18:16] LABS: CREATININE 1.0 mg/dL (0.5-1.0); GLOMERULAR FILTR. RATE CALC 60.0 mL/min (>90); GLUCOSE,RANDOM 52.0 mg/dL (70-105); SODIUM SERUM 136.0 mmol/L (136-145); UREA NITROGEN, BLOOD 17.0 mg/dL (7-18)
[2025-03-17] MEDS ORDERED: GLUCAGON 1MG KIT 1 MG ML IM PRN (19:30)
[2025-03-17] MEDS ORDERED: PoTASSium chl 10% ELIXIR 20MEQ 20 MEQ/15 ML UDCUP PO PRN (19:30)
[2025-03-17] MEDS ORDERED: LEVO50CA5 PO (19:30)
--- NOTE | 2025-03-17 20:03 | HP ---
[facility] HISTORY AND PHYSICAL Date of Service: Mar 17, 2025 Time of Service: 19:19 PCP: Agustín Jackson HISTORY OF PRESENT ILLNESS: This is a 74 year old female,a resident of [facility] Living with past medical history of Diabetes type 2, hypertension, morbid obesity, hyperlipidemia, hypothyroidism, obstructive sleep apnea not on CPAP, chrinic kidney disease stage 2 ,anemia ,coronary artery disease and stroke with right sided flaccidity and mild dysarthria who was brought by EMS to the ED for evaluation of low blood sugar.Patient states she has noticed she has been feeling tired,weak and sleepy most of the time and clinical technician checked her blood sugar and it was low.Patient reports she received 5 units of insulin earlier today.En route patient glucose was still low and patient was given D50 reportedly.Upon ER arrival patient's blood sugar was 44 and V/S T98.2,HR91,BP 1 Sat 98% RA. Seen and examined patient in the ER drowsy but easily arousable,coherent , follows commands and answers questions appropriately.Patient states she feels hungry now.Patient states she has not been eating much lately she said.Patient denies fever,chills,nausea,vomiting,abdominal pain and dizziness.Labs: WBC 11, with negative left shift of neutrophils 85, hemoglobin 10, hematocrit 34 platelet count 226. Sodium 136, potassium 3.5, chloride 99, BUN 17, creatinine 1, GFR 60 total calcium 8.8 while in the ER patient was started on D10 at 80 mL/hour and current blood sugar is 212 at this time. We will admit patient for further medical management. REVIEW OF SYSTEMS CONSTITUTIONAL: Denies fevers, chills, or night sweats. No unintentional weight loss reported. NEUROLOGICAL: Complained of generalized body weakness and fatigue Denies headache, amaurosis fugax, sensory deficit, vertigo/spinning sensation, gait abnormalities, or tremors. ENT: No hearing loss, otalgia, otorrhea, rhinitis, rhinorrhea, hoarseness, or sore throat. CARDIOVASCULAR: Denies any exertional angina, dyspnea on exertion, orthopnea, paroxysmal nocturnal dyspnea, palpitations, life-threatening arrhythmias, claudication. PULMONARY: Denies any shortness of breath, cough, phlegm/sputum, hemoptysis, pleuritic chest pain. SLEEP: Denies morning headaches, daytime somnolence or napping. Denies difficulty falling asleep, staying asleep, waking from sleep. Denies knowledge of snoring. GASTROINTESTINAL: Denies any type of dysphagia to either liquids or solids. Denies nausea, vomiting, pyrosis, early satiety, abdominal pain, diarrhea, constipation, or changes in stool consistency or caliber. Denies coffee-ground emesis, hematemesis, hematochezia, or melanotic stools. GENITOURINARY: Denies frequency, urgency, nocturia, hematuria or incontinence (Storage/Irritative symptoms.) Low urinary stream, straining to void, urinary intermittency or hesitancy, splitting of the voiding stream, terminal dribbling. ENDOCRINOLOGIC: Denies polyuria, polydipsia, polyphagia or heat/cold intolerances. HEMATOLOGIC: Denies thrombophilia/previous clots, or coagulopathy/bleeding disorders. ONCOLOGIC: Denies personal history of malignancy. DERMATOLOGIC: Denies rashes or pruritus. PSYCHIATRIC: Denies any suicidal or homicidal ideation. Denies hallucinations. PAST MEDICAL HISTORY: [ Diabetes type 2, hypertension, morbid obesity, hyperlipidemia, hypothyroidism, obstructive sleep apnea not on CPAP, coronary artery disease and stroke with right-sided weakness ] PAST SURGICAL HISTORY: [ x2 and left knee surgery ] PAST SOCIAL HISTORY: [Patient is a resident of assisted living. Patient denies alcohol cigarette and recreational drug use ] FAMILY HISTORY: [ Noncontributory ] Coded Allergies: No Known Allergies (Unverified Allergy, Unknown, 02/23/24) PHYSICAL EXAM GENERAL APPEARANCE: The patient is drowsy easily arousable and oriented, in no acute cardiopulmonary distress. Neurological: Right-sided flaccidity and speech impairment 2/2 history of stroke HEENT: Face is symmetric. Pupils are equal and reactive. Extraocular movements are intact. NECK: Supple. No JVD. No thyromegaly. No submental, submandibular, pre- /postauricular, occipital or supraclavicular lymphadenopathy. CHEST: Normal chest expansion. No Telemetry. LUNGS: Absence of any rales, rhonchi or any wheezing. CARDIOVASCULAR: Regular. S1 and S2 normal. No appreciable rubs, murmurs or gallops. ABDOMEN: Soft, nontender, and nondistended. There is no rebound, voluntary guarding, or rigidity. : Deferred. No Rinaldi. EXTREMITIES:Right foot drop and right upper arm contracted SKIN: No skin breakdown. Vital Sign (Last 24 Hours) 03/17/25 17:44 Temp 98.2 Pulse 88 Resp 16 B/P (MAP) 107/52 Pulse Ox 98 O2 Delivery Room Air* O2 Flow Rate 0 FiO2 21 LABS: Laboratory: Test 03/17/25 18:35 03/17/25 17:44 Range/Units Whole Blood Glucose 212 #H 70-110 MG/DL White Blood Count 11.9 H 4.8-10.8 K/uL Red Blood Count 3.65 L 4.00-5.50 MIL/uL Hemoglobin 10.9 L 12.0-16.0 g/dL Hematocrit 34.0 L 36-48 % Mean Corpuscular Volume 93.2 79-99 fL Mean Corpuscular Hemoglobin 29.9 27.0-33.0 pg Mean Corpuscular Hemoglobin Concent 32.1 32.0-36.0 g/dL Red Cell Distribution Width 15.9 H 11.0-15.5 % Platelet Count 226 130-400 K/uL Mean Platelet Volume 11.9 H 7.5-10.5 fL Immature Granulocyte % (Auto) 0.3 0-1 % Neutrophils (%) (Auto) 85.6 H 40.0-77.0 % Lymphocytes (%) (Auto) 5.2 L 21.0-51.0 % Monocytes (%) (Auto) 8.3 3.0-13.0 % Eosinophils (%) (Auto) 0.3 0.0-8.0 % Basophils (%) (Auto) 0.3 0.0-5.0 % Neutrophils # (Auto) 10.2 H 1.8-7.7 K/uL Lymphocytes # (Auto) 0.6 L 1.0-4.8 K/uL Monocytes # (Auto) 1.0 0.1-1.0 K/uL Eosinophils # (Auto) 0.04 0.00-0.70 K/uL Basophils # (Auto) 0.04 0.00-0.20 K/uL Absolute Immature Granulocyte (auto 0.04 0-1 K/uL Nucleated Red Blood Cells 0.0 0.0-0.19 % White Cell Morphology Comment See comments Sodium Level 136 136-145 mmol/L Potassium Level 3.5 3.5-5.1 mmol/L Chloride Level 99 L 101-111 mmol/L Carbon Dioxide Level 23 21-32 mmol/L Blood Urea Nitrogen 17 7-18 mg/dL Creatinine 1.0 0.5-1.0 mg/dL Glomerular Filtration Rate Calc 60 >90 mL/min Random Glucose 52 L 70-105 mg/dL Total Calcium 8.8 8.5-10.1 mg/dL Current Medications Medications (Trade) Dose Ordered Sig/Angelica Route PRN Reason Start Time Stop Time Status Last Admin Dose Admin Dextrose 1,000 ml @ 0 mls/hr Q0M IV 03/17/25 17:30 04/16/25 17:29 03/17/25 17:41 80 MLS/HR DIAGNOSTICS / RADIOLOGY: [ ] ASSESSMENT: Persistent hypoglycemia with Diabetes type 2 POA Mild Acute metabolic encephalopathy POA Uncontrolled diabetes type 2 POA Acute on chronic anemia POA Debility POA Chronic kidney disease stage II POA Morbid obesity POA Obstructive sleep apnea not on CPAP therapy POA Hypertension POA Hyperlipidemia POA Hypothyroidism POA History of CVA with right sided flaccidity and mild dysarthria POA PLAN: We will admit patient in medical telemetry We will start on full liquid diet and advanced as tolerated Continue D10 at 80 mL/hour blood sugar support We will start famotidine 20 mg p.o. daily for GI prophylaxis We will replace electrolytes as needed per protocol We will request for glucometer q.2 hours x3 with hypoglycemia protocol We will add prn medication for fever,pain,cough , nausea and vomiting We will reconcile home meds once medlist available Fall precautions Request for neuro check q.4 hours per nursing We will request for urinalysis and follow-up result We will request for case management service We will request for dietary consultation to assess malnutrition We will request for PT service to eval and treat We will seek endocrinology consultation We will request labs in am Further orders to follow depending on above results Case discussed with attending physician and came up with above treatment and plan of care. ADVANCED CARE PLANNING 1. Which of the following were discussed? Hospice Care - No Therapeutic options - Yes Advance Directives - No Other discussions - 2. Discussed with who? Patient 3. Voluntary nature of this service was explained to the patient? Yes 4. Amount of time spent - _23 minutes 5. Reviewed by Physician? (if this service was performed by NPP) Yes Patient seen and examined by me. Agree with note by [employer] DEVELOPER SEE ADDITIONAL ORDERS PER CHART DISCUSSED WITH NURSING STAFF GEORGINA MOLINA MEDIA OPERATOR Mar 17, 2025 20:03
[2025-03-17 22:18] LABS: APPEARANCE,URINE CLOUDY (CLEAR); GLUCOSE, URINE (UA) NEGATIVE (NEGATIVE); LEUKOCYTE ESTERASE ,URINE 500 Leu/uL (NEGATIVE); NITRATE,URINE NEGATIVE (NEGATIVE); OCCULT BLOOD,URINE NEGATIVE (NEGATIVE)
--- NOTE | 2025-03-17 22:22 | NUR ---
1ST ATTEMPT TO PROVIDE REPORT SPOKE WITH CN AND WILL GET CALL BACK BY PRIMARY WHEN AVAILABLE
--- NOTE | 2025-03-17 22:23 | NUR ---
TANGELA ATTEMPTING TO CONFIRM TELY PAC AVAILABILITY AT THIS TIME
--- NOTE | 2025-03-17 22:29 | NUR ---
D-10 CURRENTLY RUNNING 80 ML HR LAST GLUCOSE 126 AT 2200 AND GLUCOSE CHECKS TO TO CONTINUE Q2HRS AND ADMITTING IS TO BE NOTIFIED IF ADJUSTMENT NEEDED PLEASE
[2025-03-17 22:36] LABS: ADD UA MICROSCOPIC YES
[2025-03-17 22:38] LABS: SQUAMOUS EPITHELIAL CELL,UR RARE /HPF (0-2); UNCLASSIFIED CRYSTAL 11 /HPF (None Seen)
--- NOTE | 2025-03-17 22:44 | NUR ---
JOHNATHAN CALLED AND WAS ADVISE CHANGE OF PLAND AND PT NOT COMMING UPSTAIRS DUE TO TELY PAC SHORTAGE
[2025-03-18] VITALS (7 sets, daily range): BP systolic 119–161; BP diastolic 65–83; PULSE 79–95; RESP 16–19; TEMP 98.9–100.1; O2SAT 79–95
[2025-03-18] MEDS: PoTASSium chloRIDE 20MEQ ER 20 MEQ ERTAB PO PRN (02:37)
[2025-03-18 05:27] LABS: IMMATURE GRANULOCYTE ABSOLUTE 0.04 K/uL (0-1); NUCLEATED RED BLOOD CELLS 0.0 % (0.0-0.19); PLATELET COUNT (AUTO) 192 K/uL (130-400); RED BLOOD CELL COUNT(AUTO) 3.44 MIL/uL (4.00-5.50); RED CELL DISTRIBUTION WIDTH 15.9 % (11.0-15.5); WHITE BLOOD COUNT (AUTO) 8.8 K/uL (4.8-10.8)
[2025-03-18 05:56] LABS: ASPARTATE AMINOTRANSFERASE 20.0 U/L (10-37); CREATININE 0.9 mg/dL (0.5-1.0); GLOMERULAR FILTR. RATE CALC 68.0 mL/min (>90); GLUCOSE,RANDOM 211.0 mg/dL (70-105); SODIUM SERUM 132.0 mmol/L (136-145); TOTAL PROTEIN, SERUM 6.7 g/dL (6.0-8.3); UREA NITROGEN, BLOOD 13.0 mg/dL (7-18)
[2025-03-18] MEDS: MAGNESIUM 2GM PREMIX 50ML 50 ML IV PRN (06:03)
[2025-03-18] MEDS: FAMOTIDINE 20MG TAB PO SCH (08:40)
[2025-03-18] MEDS: PoTASSium chloRIDE 20MEQ ER 20 MEQ ERTAB PO ONE (08:41)
[2025-03-18] MEDS: MAGNESIUM 4GM PREMIX 100ML IV ONE (08:45)
--- NOTE | 2025-03-18 11:30 | NUR ---
Nutritional Note: Chart, meds, and labs Reviewed. Met with pt and discussed DM diet, pt reported to following diet at home and checking sugars and they are usually around 147. HA1C 8.1 estimated avg glu 186. Pt denied any recent unintentional wt loss and or poor appetite. Recommend: -Continue full liquid puree diet. -Glucerna w/ am tray and PRN if PO in - Electrolyte replacements per protocol -Monitor feeding tolerance, %, wt, and labs -Document PO intake and wt daily. -If No BM >3days consider bowel stimulant. -Consider appetite stimulant if intake remains <75%for 3 days. -Schedule outpatient RD f/u for long-term nutrition care. - Notify RD if additional nutrition concerns arise. SEE RD Nutritional Assessment for additional assessment information. Addendum: 03/18/25 at [address] Amended: Links added.
--- NOTE | 2025-03-18 12:15 | PN ---
[facility] PROGRESS NOTE Date of Service: Mar 18, 2025 Time of Service: 12:[address] Meraz SUBJECTIVE: [ 03/17 This is a 74 year old female,a resident of [facility] Living with past medical history of Diabetes type 2, hypertension, morbid obesity, hyperlipidemia, hypothyroidism, obstructive sleep apnea not on CPAP, chrinic kidney disease stage 2 ,anemia ,coronary artery disease and stroke with right sided flaccidity and mild dysarthria who was brought by EMS to the ED for evaluation of low blood sugar.Patient states she has noticed she has been feeling tired,weak and sleepy most of the time and environmental laboratory technician checked her blood sugar and it was low.Patient reports she received 5 units of insulin earlier today.En route patient glucose was still low and patient was given D50 reportedly.Upon ER arrival patient's blood sugar was 44 and V/S T98.2,HR91,BP 104/57 Sat 98% RA. Seen and examined patient in the ER drowsy but easily arousable,coherent , follows commands and answers questions appropriately.Patient states she feels hungry now.Patient states she has not been eating much lately she said.Patient denies fever,chills,nausea,vomiting,abdominal pain and dizziness.Labs: WBC 11, with negative left shift of neutrophils 85, hemoglobin 10, hematocrit 34 platelet count 226. Sodium 136, potassium 3.5, chloride 99, BUN 17, creatinine 1, GFR 60 total calcium 8.8 while in the ER patient was started on D10 at 80 mL/hour and current blood sugar is 212 at this time. We will admit patient for further medical management. 03/18 patient was seen by nurse practitioner and physician during rounding in room 415. Patient's alert and oriented x3 on 2 L nasal cannula satting 98%. Patient was seen resting in the bed. As per RN, patient has not been eating. He is very hard to be aroused. We will order some labs. Chest x-ray was ordered as well. Was positive for leukocytosis and patient will be placed on Rocephin 2 g daily. Urine culture to be sent to lab. We will consult speech for swallow eval. PT and case management on case already. Patient will receive 4 g of magnesium and 40 mEq of potassium. At this moment pending further recommendation/plan from staff anesthetist. Home medications were reconciled by FERRYBOAT OPERATOR HELPER. We will continue to monitor patient in the meantime. A.m. labs] REVIEW OF SYSTEMS CONSTITUTIONAL: Denies fevers, chills, or night sweats. No unintentional weight loss reported. NEUROLOGICAL: Complained of generalized body weakness and fatigue Denies headache, amaurosis fugax, sensory deficit, vertigo/spinning sensation, gait abnormalities, or tremors. ENT: No hearing loss, otalgia, otorrhea, rhinitis, rhinorrhea, hoarseness, or sore throat. CARDIOVASCULAR: Denies any exertional angina, dyspnea on exertion, orthopnea, paroxysmal nocturnal dyspnea, palpitations, life-threatening arrhythmias, claudication. PULMONARY: Denies any shortness of breath, cough, phlegm/sputum, hemoptysis, pleuritic chest pain. SLEEP: Denies morning headaches, daytime somnolence or napping. Denies difficulty falling asleep, staying asleep, waking from sleep. Denies knowledge of snoring. GASTROINTESTINAL: Denies any type of dysphagia to either liquids or solids. Denies nausea, vomiting, pyrosis, early satiety, abdominal pain, diarrhea, constipation, or changes in stool consistency or caliber. Denies coffee-ground emesis, hematemesis, hematochezia, or melanotic stools. GENITOURINARY: Denies frequency, urgency, nocturia, hematuria or incontinence (Storage/Irritative symptoms.) Low urinary stream, straining to void, urinary intermittency or hesitancy, splitting of the voiding stream, terminal dribbling. ENDOCRINOLOGIC: Denies polyuria, polydipsia, polyphagia or heat/cold intolerances. HEMATOLOGIC: Denies thrombophilia/previous clots, or coagulopathy/bleeding disorders. ONCOLOGIC: Denies personal history of malignancy. DERMATOLOGIC: Denies rashes or pruritus. PSYCHIATRIC: Denies any suicidal or homicidal ideation. Denies hallucinations. PHYSICAL EXAM GENERAL APPEARANCE: The patient is drowsy easily arousable and oriented, in no acute cardiopulmonary distress. Neurological: Right-sided flaccidity and speech impairment 2/2 history of stroke HEENT: Face is symmetric. Pupils are equal and reactive. Extraocular movements are intact. NECK: Supple. No JVD. No thyromegaly. No submental, submandibular, pre- /postauricular, occipital or supraclavicular lymphadenopathy. CHEST: Normal chest expansion. No Telemetry. LUNGS: Absence of any rales, rhonchi or any wheezing. CARDIOVASCULAR: Regular. S1 and S2 normal. No appreciable rubs, murmurs or gallops. ABDOMEN: Soft, nontender, and nondistended. There is no rebound, voluntary guarding, or rigidity. : Deferred. No Rinaldi. EXTREMITIES:Right foot drop and right upper arm contracted SKIN: No skin breakdown. Vital Signs (last 8hr) Date Time Temp Pulse Resp B/P (MAP) Pulse Ox O2 Delivery O2 Flow Rate FiO2 03/18/25 07:59 99.0 80 16 126/70 92 Room Air LABS: Laboratory: Test 03/18/25 11:39 03/18/25 05:19 03/17/25 22:09 03/17/25 17:44 Range/Units Whole Blood Glucose 279 H 70-110 MG/DL Bedside Glucose Comment Notified Nurse White Blood Count 8.8 # 4.8-10.8 K/uL Red Blood Count 3.44 L 4.00-5.50 MIL/uL Hemoglobin 10.2 L 12.0-16.0 g/dL Hematocrit 31.0 L 36-48 % Mean Corpuscular Volume 90.1 79-99 fL Mean Corpuscular Hemoglobin 29.7 27.0-33.0 pg Mean Corpuscular Hemoglobin Concent 32.9 32.0-36.0 g/dL Red Cell Distribution Width 15.9 H 11.0-15.5 % Platelet Count 192 130-400 K/uL Mean Platelet Volume 11.6 H 7.5-10.5 fL Immature Granulocyte % (Auto) 0.5 0-1 % Neutrophils (%) (Auto) 83.1 H 40.0-77.0 % Lymphocytes (%) (Auto) 7.4 L 21.0-51.0 % Monocytes (%) (Auto) 8.4 3.0-13.0 % Eosinophils (%) (Auto) 0.3 0.0-8.0 % Basophils (%) (Auto) 0.3 0.0-5.0 % Neutrophils # (Auto) 7.3 1.8-7.7 K/uL Lymphocytes # (Auto) 0.7 L 1.0-4.8 K/uL Monocytes # (Auto) 0.7 0.1-1.0 K/uL Eosinophils # (Auto) 0.03 0.00-0.70 K/uL Basophils # (Auto) 0.03 0.00-0.20 K/uL Absolute Immature Granulocyte (auto 0.04 0-1 K/uL Nucleated Red Blood Cells 0.0 0.0-0.19 % Sodium Level 132 L 136-145 mmol/L Potassium Level 3.6 3.5-5.1 mmol/L Chloride Level 98 L 101-111 mmol/L Carbon Dioxide Level 27 21-32 mmol/L Blood Urea Nitrogen 13 7-18 mg/dL Creatinine 0.9 0.5-1.0 mg/dL Glomerular Filtration Rate Calc 68 >90 mL/min Random Glucose 211 #H 70-105 mg/dL Total Calcium 8.1 L 8.5-10.1 mg/dL Magnesium Level 1.30 L 1.80-2.40 mg/dL Total Bilirubin 0.8 0.2-1.0 mg/dL Aspartate Amino Transf (AST/SGOT) 20 10-37 U/L Alanine Aminotransferase (ALT/SGPT) 15 12-78 U/L Alkaline Phosphatase 120 50-136 U/L Total Protein 6.7 6.0-8.3 g/dL Albumin 2.9 L 3.5-5.0 g/dL Thyroid Stimulating Hormone (TSH) 1.97 # 0.36-3.74 uIU/mL Urine Color LIGHT-YELLOW YELLOW Urine Appearance CLOUDY H CLEAR Urine pH 5.0 5.0-8.0 Urine Specific Goff 1.006 1.001-1.031 Urine Protein NEGATIVE NEGATIVE mg/dL Urine Glucose (UA) NEGATIVE NEGATIVE mg/dL Urine Ketones NEGATIVE NEGATIVE mg/dL Urine Occult Blood NEGATIVE NEGATIVE Urine Nitrate NEGATIVE NEGATIVE Urine Bilirubin NEGATIVE NEGATIVE mg/dL Urine Urobilinogen 0.2 0.2-1.0 mg/dL Urine Leukocyte Esterase 500 H NEGATIVE Indigo/uL Urine RBC None 0-1 /HPF Urine WBC 11-25 H 0-1 /HPF Urine Squamous Epithelial Cells RARE 0-2 /HPF Urine Other Crystals (Auto) 11 None Seen /HPF Urine Amorphous Crystals (Auto) RARE None Seen /LPF Urine Bacteria MANY None Seen /HPF White Cell Morphology Comment See comments Hemoglobin A1c 8.1 H 4.0-6.0 % Estimated Average Glucose (eAG) 186 H 70-126 mg/dL Current Medications Medications (Trade) Dose Ordered Sig/Angelica Route PRN Reason Start Time Stop Time Status Last Admin Dose Admin Acetaminophen (TYLenol 325MG TAB) 650 mg Q4H PRN PO MILD PAIN (1-3) 03/17/25 19:30 04/16/25 19:29 Acetaminophen (TYLenol 325MG TAB) 650 mg Q6H PRN PO TEMPERATURE GREATER THAN 101.5 03/17/25 19:30 04/16/25 19:29 Amlodipine Besylate (NorvASC 5MG TAB) 5 mg DAILY PO 03/18/25 09:00 04/17/25 08:59 Atorvastatin Calcium (LIPItor 40MG) 40 mg HS PO 03/18/25 21:00 04/17/25 20:59 Ceftriaxone Sodium (Rocephin 2gm Inj) 2 gm Q24H IVPB 03/18/25 07:30 03/28/25 07:29 03/18/25 08:41 2 GM Clopidogrel Bisulfate (plaVIX 75MG) 75 mg DAILY PO 03/18/25 09:00 04/17/25 08:59 03/18/25 08:40 75 MG Dextrose 1,000 ml @ 0 mls/hr Q0M IV 03/17/25 17:30 03/18/25 08:37 DC 03/18/25 02:30 80 MLS/HR Dextrose (D50w) 50 ml AD PRN IV HYPOGLYCEMIA PROTOCOL 03/17/25 19:30 04/16/25 19:29 Famotidine (Pepcid 20mg Tab) 20 mg DAILY PO 03/18/25 09:00 04/17/25 08:59 03/18/25 08:40 20 MG Gabapentin (NEURontin 100 mg CAP) 100 mg TID PO 03/18/25 09:00 04/17/25 08:59 03/18/25 08:42 100 MG Glucagon (Glucagon 1mg Kit) 1 mg AD PRN IM HYPOGLYCEMIA PROTOCOL 03/17/25 19:30 04/16/25 19:29 Home Med (Home Medication) (Levocetirizine Dihydrochloride 5MG TAB) HS PO 03/18/25 21:00 04/17/25 20:59 Hydrochlorothiazide (hydroCHLOROthiazide 25MG) 12.5 mg DAILY PO 03/18/25 09:00 04/17/25 08:59 03/18/25 08:41 12.5 MG Levothyroxine Sodium (SYNTHroid 50MCG TAB) 50 mcg SYN PO 03/19/25 06:30 04/18/25 06:29 Losartan Potassium (CozAAR 100MG TAB) 100 mg DAILY PO 03/18/25 09:00 04/17/25 08:59 03/18/25 08:41 100 MG Magnesium Sulfate 50 ml @ 0 mls/hr PROTOCOL PRN IV OTHER [SEE ORDER COMMENTS] 03/17/25 19:30 04/16/25 19:29 03/18/25 08:43 25 MLS/HR Montelukast Sodium (SinguLAIR) 10 mg DAILY PO 03/18/25 09:00 04/17/25 08:59 03/18/25 08:40 10 MG Ondansetron HCl (zoFRAN 4MG INJ) 4 mg Q6H PRN IV NAUSEA/VOMITING 03/17/25 19:30 04/16/25 19:29 Potassium Chloride 100 ml @ 100 mls/hr AD PRN IV POTASSIUM PROTOCOL 03/17/25 19:30 04/16/25 19:29 03/18/25 03:07 100 MLS/HR Potassium Chloride (K-Dur/Klor-Con 20meq) 20 meq AD PRN PO POTASSIUM PROTOCOL 03/17/25 19:30 04/16/25 19:29 03/18/25 02:37 20 MEQ Potassium Chloride (KCl 10% Elixir 20meq/15ml) 20 meq AD PRN PO POTASSIUM PROTOCOL 03/17/25 19:30 04/16/25 19:29 DIAGNOSTICS / RADIOLOGY: [ ] ASSESSMENT: Acute hypoxic respiratory failure POA Persistent hypoglycemia with uncontrolled Diabetes type 2 POA Mild Acute metabolic encephalopathy POA Uncontrolled diabetes type 2 POA Acute on chronic anemia POA Debility POA Chronic kidney disease stage II POA Morbid obesity POA Obstructive sleep apnea not on CPAP therapy POA Uncontrolled Hypertension POA Acute complicated cystitis POA Electrolyte imbalance hyponatremia Na 132 hypomagnesemia mg 1.3 hypokalemia K3.6 POA Moderate severe malnutrition POA Hyperlipidemia POA Hypothyroidism POA Leukocytosis 11.9 POA History of CVA with right sided flaccidity and mild dysarthria POA PLAN: Patient's alert and oriented x3 on 2 L nasal cannula satting 98%. Patient was seen resting in the bed. As per RN, patient has not been eating. He is very hard to be aroused. We will order some labs. Chest x-ray was ordered as well. Was positive for leukocytosis and patient will be placed on Rocephin 2 g daily. Urine culture to be sent to lab. We will consult speech for swallow eval. PT and case management on case already. Patient will receive 4 g of magnesium and 40 mEq of potassium. At this moment pending further recommendation/plan from staff anesthetist. Home medications were reconciled by FERRYBOAT OPERATOR HELPER. We will continue to monitor patient in the meantime. A.m. labs Continue patient in medical telemetry Continue full liquid diet and advanced as tolerated Continue D10 at 80 mL/hour blood sugar support Continue famotidine 20 mg p.o. daily for GI prophylaxis We will replace electrolytes as needed per protocol We will request for glucometer q.2 hours x3 with hypoglycemia protocol We will add prn medication for fever,pain,cough , nausea and vomiting Fall precautions Request for neuro check q.4 hours per nursing We will request for urinalysis and follow-up result We will request for case management service We will request for dietary consultation to assess malnutrition We will request for PT service to eval and treat We will seek endocrinology consultation We will request labs in am Further orders to follow depending on above results Case discussed with attending physician and came up with above treatment and plan of care. ATTESTATION BY PHYSICIAN I have seen and examined the patient. I reviewed the documentation, medical decision making, and treatment plan as noted by the mid-level provider above. I agree with the findings and plan of care. Chao Meraz IV, MD, KATARZYNA B TRANSPLANT WORKER Mar 18, 2025 12:15
[2025-03-18] MEDS ORDERED: PHARMACY COMMUNICATION 1 EACH EACH MISC SCH (12:30)
--- NOTE | 2025-03-18 12:58 | NUR ---
DCP:[facility] Pt currently lives at [facility]. Pt does have a motorized wheelchair that she uses. Pt states that the staff at the facility to complete ADLs. PCP is Manuel Rodriguez and uses [facility] for any RX needs. At [place] pt will go back to [facility] and will need EMS for transportation. Addendum: 03/18/25 at 1302 by YISEL JOHNSON SS Amended: Links added.
[2025-03-18] MEDS: amLODIPine 5 MG TAB PO SCH (13:57)
--- NOTE | 2025-03-18 15:05 | NUR ---
BEDSIDE SWALLOW EVAL COMPLETED. No s/s of aspiration. RECOMMEND: soft and bite sized solids, thin liquids and pills crushed with pureed solids as tolerated. COMPENSATORY STRATEGIES: 1. sit upright during oral intake 2. small bites/sips 3. slow oral intake ROCK DRILL OPERATOR reviewed results and recommendations with patient and nurse Cyndee. ROCK DRILL OPERATOR educated patient on risks and consequences of aspiration. Speech therapy not warranted at this time. All questions answered. Addendum: 03/18/[address] OWUSU Amended: Links added.
--- NOTE | 2025-03-18 16:02 | HMCIMG ---
CHEST 1VW REASON: congestion COMPARISON: Prior study from 01/24/2025 is available. FINDINGS: Single view of the chest was obtained. Lungs are clear. Heart size is normal. There is no pulmonary vascular congestion. Mediastinum and bony thorax appear unremarkable. The study is unchanged from prior study. IMPRESSION: 1. Normal single view chest x-ray.
[2025-03-18] MEDS: LEVOCETIRIZINE DIHYDROCHLORIDE 5 MG PO SCH (21:00)
[2025-03-19] VITALS: BP 103/69; PULSE 70; RESP 18; TEMP 97.5
[2025-03-19 04:00] VITALS: BP_SYST 108; BP_SYST 166; BP_DIAS 59; BP_DIAS 79; PULSE 87; PULSE 98; RESP 18; RESP 20; TEMP 98; TEMP 99.8
[2025-03-19 05:21] LABS: IMMATURE GRANULOCYTE ABSOLUTE 0.02 K/uL (0-1); NUCLEATED RED BLOOD CELLS 0.0 % (0.0-0.19); PLATELET COUNT (AUTO) 187 K/uL (130-400); RED BLOOD CELL COUNT(AUTO) 3.80 MIL/uL (4.00-5.50); RED CELL DISTRIBUTION WIDTH 15.9 % (11.0-15.5); WHITE BLOOD COUNT (AUTO) 7.1 K/uL (4.8-10.8)
[2025-03-19 06:04] LABS: ASPARTATE AMINOTRANSFERASE 23.0 U/L (10-37); CREATINE KINASE, TOTAL 288.0 U/L (21-232); CREATININE 1.0 mg/dL (0.5-1.0); GLOMERULAR FILTR. RATE CALC 60.0 mL/min (>90); GLUCOSE,RANDOM 72.0 mg/dL (70-105); SODIUM SERUM 138.0 mmol/L (136-145); TOTAL PROTEIN, SERUM 6.9 g/dL (6.0-8.3); UREA NITROGEN, BLOOD 14.0 mg/dL (7-18)
--- NOTE | 2025-03-19 06:24 | CONS ---
CONSULT NOTE: Endocrinology Consult Chief complaint: hypoglycemia Reason for consult:dm-2 and hypoglycemia DOS:03/19/25 HISTORY OF PRESENT ILLNESS: This is a 74 year old female,a resident of [facility] with past medical history of Diabetes type 2, hypertension, morbid obesity, hyperlipidemia, hypothyroidism, obstructive sleep apnea not on CPAP, chronic kidney disease stage 2 ,anemia ,coronary artery disease and stroke with right sided flaccidity and mild dysarthria who was brought by EMS to the ED for evaluation of low blood sugar. Upon ER arrival patient's Labs: WBC 11, with negative left shift of neutrophils 85, hemoglobin 10, hematocrit 34 platelet count 226. Sodium 136, potassium 3.5, chloride 99, BUN 17, creatinine 1, GFR 60 total calcium 8.8 while in the ER patient was started on D10 at 80 mL/hour and current blood sugar is 212 at this time. We will admit patient for further medical management. Home diabetic regimen: tresiba 20 units daily, humalog 5 units tid before meals, mounjaro 2.5 mg weekly, metformin 500 mg bid Hba1c 8.2% reports that he follows with propeller layout worker dr. rivera for dm-2 management. he has dm-2 for many years. patient reports that he started having hypoglycemia after started on mounjaro. lowest glucose was 40 mg/dl at home and denies any seizures. REVIEW OF SYSTEMS CONSTITUTIONAL: Denies fevers, chills, or night sweats. No unintentional weight loss reported. NEUROLOGICAL: Complained of generalized body weakness and fatigue Denies headache, amaurosis fugax, sensory deficit, vertigo/spinning sensation, gait abnormalities, or tremors. ENT: No hearing loss, otalgia, otorrhea, rhinitis, rhinorrhea, hoarseness, or sore throat. CARDIOVASCULAR: Denies any exertional angina, dyspnea on exertion, orthopnea, paroxysmal nocturnal dyspnea, palpitations, life-threatening arrhythmias, claudication. PULMONARY: Denies any shortness of breath, cough, phlegm/sputum, hemoptysis, pleuritic chest pain. SLEEP: Denies morning headaches, daytime somnolence or napping. Denies difficulty falling asleep, staying asleep, waking from sleep. Denies knowledge of snoring. GASTROINTESTINAL: Denies any type of dysphagia to either liquids or solids. Denies nausea, vomiting, pyrosis, early satiety, abdominal pain, diarrhea, constipation, or changes in stool consistency or caliber. Denies coffee-ground emesis, hematemesis, hematochezia, or melanotic stools. GENITOURINARY: Denies frequency, urgency, nocturia, hematuria or incontinence (Storage/Irritative symptoms.) Low urinary stream, straining to void, urinary intermittency or hesitancy, splitting of the voiding stream, terminal dribbling. ENDOCRINOLOGIC: Denies polyuria, polydipsia, polyphagia or heat/cold intolerances. HEMATOLOGIC: Denies thrombophilia/previous clots, or coagulopathy/bleeding disorders. ONCOLOGIC: Denies personal history of malignancy. DERMATOLOGIC: Denies rashes or pruritus. PSYCHIATRIC: Denies any suicidal or homicidal ideation. Denies hallucinations. PAST MEDICAL HISTORY: [ Diabetes type 2, hypertension, morbid obesity, hyperlipidemia, hypothyroidism, obstructive sleep apnea not on CPAP, coronary artery disease and stroke with right-sided weakness ] PAST SURGICAL HISTORY: [ x2 and left knee surgery ] PAST SOCIAL HISTORY: [Patient is a resident of assisted living. Patient denies alcohol cigarette and recreational drug use ] FAMILY HISTORY: [ Noncontributory ] Coded Allergies: No Known Allergies (Unverified Allergy, Unknown, 02/23/24) PHYSICAL EXAM GENERAL APPEARANCE: aaox3 Neurological: Right-sided flaccidity and speech impairment 2/2 history of stroke HEENT: Face is symmetric. Pupils are equal and reactive. Extraocular movements are intact. NECK: Supple. No JVD. No thyromegaly. No submental, submandibular, pre- /postauricular, occipital or supraclavicular lymphadenopathy. CHEST: Normal chest expansion. No Telemetry. LUNGS: Absence of any rales, rhonchi or any wheezing. CARDIOVASCULAR: Regular. S1 and S2 normal. No appreciable rubs, murmurs or gallops. ABDOMEN: Soft, nontender, and nondistended. There is no rebound, voluntary guarding, or rigidity. : Deferred. No Rinaldi. EXTREMITIES:Right foot drop and right upper arm contracted SKIN: No skin breakdown. ASSESSMENT: fasting hypoglycemia at home due to tresiba insulin. hypoglycemia resolved and now glucose spikes to 300 mg/dl. uncontrolled Diabetes type 2 POA Home diabetic regimen: tresiba 20 units daily, humalog 5 units tid before meals, mounjaro 2.5 mg weekly, metformin 500 mg bid Hba1c 8.2% reports that he follows with propeller layout worker dr. rivera for dm-2 management. he has dm-2 for many years. patient reports that he started having hypoglycemia after started on mounjaro. lowest glucose was 40 mg/dl at home and denies any seizures. Mild Acute metabolic encephalopathy POA improved Hypothyroidism POA on levothyroxine 50 mcg daily. Acute on chronic anemia POA Debility POA Chronic kidney disease stage II POA Morbid obesity POA Obstructive sleep apnea not on CPAP therapy POA Hypertension POA Hyperlipidemia POA History of CVA with right sided flaccidity and mild dysarthria POA PLAN: start Lantus 15 units daily and adjust for fasting glucose. start Regular insulin 5 units three times before meals and adjust for post- prandial glucose. Continue low dose sliding scale insulin. Monitor glucose q x 6 hourly. Continue carb consistent diet. Keep glucose less than 180 mg/dl. Patient will need to decrease tersiba to 13 units daily, same humalog 5 units tid before meals, mounjaro 2.5 mg weekly and resume other home meds. follow with endocrinology dr. rivera. Thanks for allowing me to participate in patient care and will continue to follow up. Vital Signs 03/18/25 03/19/25 20:00 04:00 Temp 99.9 Pulse 87 Resp 18 B/P (MAP) 108/59 Pulse Ox 97 O2 Delivery Room Air O2 Flow Rate 0 FiO2 21 Hematology Labs: Test 03/19/25 03:57 03/17/25 17:44 Range/Units White Blood Count 7.1 4.8-10.8 K/uL Red Blood Count 3.80 L 4.00-5.50 MIL/uL Hemoglobin 11.3 L 12.0-16.0 g/dL Hematocrit 35.0 L 36-48 % Mean Corpuscular Volume 92.1 79-99 fL Mean Corpuscular Hemoglobin 29.7 27.0-33.0 pg Mean Corpuscular Hemoglobin Concent 32.3 32.0-36.0 g/dL Red Cell Distribution Width 15.9 H 11.0-15.5 % Platelet Count 187 130-400 K/uL Mean Platelet Volume 11.4 H 7.5-10.5 fL Immature Granulocyte % (Auto) 0.3 0-1 % Neutrophils (%) (Auto) 73.4 40.0-77.0 % Lymphocytes (%) (Auto) 13.7 L 21.0-51.0 % Monocytes (%) (Auto) 11.3 3.0-13.0 % Eosinophils (%) (Auto) 0.7 0.0-8.0 % Basophils (%) (Auto) 0.6 0.0-5.0 % Neutrophils # (Auto) 5.2 1.8-7.7 K/uL Lymphocytes # (Auto) 1.0 1.0-4.8 K/uL Monocytes # (Auto) 0.8 0.1-1.0 K/uL Eosinophils # (Auto) 0.05 0.00-0.70 K/uL Basophils # (Auto) 0.04 0.00-0.20 K/uL Absolute Immature Granulocyte (auto 0.02 0-1 K/uL Nucleated Red Blood Cells 0.0 0.0-0.19 % White Cell Morphology Comment See comments Chemistry Labs: Test 03/19/25 05:17 03/19/25 03:57 03/18/25 15:45 03/18/25 05:19 Range/Units Whole Blood Glucose 112 #H 70-110 MG/DL Sodium Level 138 136-145 mmol/L Potassium Level 4.4 3.5-5.1 mmol/L Chloride Level 100 L 101-111 mmol/L Carbon Dioxide Level 24 21-32 mmol/L Blood Urea Nitrogen 14 7-18 mg/dL Creatinine 1.0 0.5-1.0 mg/dL Glomerular Filtration Rate Calc 60 >90 mL/min Random Glucose 72 # 70-105 mg/dL Lactic Acid Level 1.2 0.8-2.5 mmol/L Total Calcium 8.4 L 8.5-10.1 mg/dL Magnesium Level 2.10 1.80-2.40 mg/dL Total Bilirubin 0.5 # 0.2-1.0 mg/dL Direct Bilirubin 0.2 0.0-0.3 mg/dL Aspartate Amino Transf (AST/SGOT) 23 10-37 U/L Alanine Aminotransferase (ALT/SGPT) 20 # 12-78 U/L Alkaline Phosphatase 101 50-136 U/L Ammonia 38 H 11-32 umol/L Total Creatine Kinase 288 #H 21-232 U/L B-Type Natriuretic Peptide 79 0-100 pg/mL Total Protein 6.9 6.0-8.3 g/dL Albumin 2.9 L 3.5-5.0 g/dL Amylase Level 41 25-115 U/L Thyroid Stimulating Hormone (TSH) 2.20 0.36-3.74 uIU/mL Bedside Glucose Comment Notified Nurse Hemoglobin A1c 8.2 H 4.0-6.0 % Estimated Average Glucose (eAG) 189 H 70-126 mg/dL Current Medications Medications (Trade) Dose Ordered Sig/Angelica Route Start Time Stop Time Status Last Admin Dose Admin Amlodipine Besylate (NorvASC 5MG TAB) 5 mg DAILY PO 03/18/25 09:00 04/17/25 08:59 03/18/25 13:57 5 MG Atorvastatin Calcium (LIPItor 40MG) 40 mg HS PO 03/18/25 21:00 04/17/25 20:59 03/18/25 20:57 40 MG Ceftriaxone Sodium (Rocephin 2gm Inj) 2 gm Q24H IVPB 03/18/25 07:30 03/28/25 07:29 03/18/25 08:41 2 GM Clopidogrel Bisulfate (plaVIX 75MG) 75 mg DAILY PO 03/18/25 09:00 04/17/25 08:59 03/18/25 08:40 75 MG Dextrose 1,000 ml @ 0 mls/hr Q0M IV 03/17/25 17:30 03/18/25 08:37 DC 03/18/25 02:30 80 MLS/HR Famotidine (Pepcid 20mg Tab) 20 mg DAILY PO 03/18/25 09:00 04/17/25 08:59 03/18/25 08:40 20 MG Gabapentin (NEURontin 100 mg CAP) 100 mg TID PO 03/18/25 09:00 04/17/25 08:59 03/18/25 20:57 100 MG Home Med (Home Medication) (Levocetirizine Dihydrochloride 5MG TAB) HS PO 03/18/25 21:00 04/17/25 20:59 Hydrochlorothiazide (hydroCHLOROthiazide 25MG) 12.5 mg DAILY PO 03/18/25 09:00 04/17/25 08:59 03/18/25 08:41 12.5 MG Insulin Human Regular (humuLIN R 100 UNIT/ML 3ML) INSULIN SLIDING SCAL... ACHS SQ 03/18/25 17:00 04/17/25 16:59 03/18/25 20:59 7 UNIT Levothyroxine Sodium (SYNTHroid 50MCG TAB) 50 mcg SYN PO 03/19/25 06:30 04/18/25 06:29 Losartan Potassium (CozAAR 100MG TAB) 100 mg DAILY PO 03/18/25 09:00 04/17/25 08:59 03/18/25 08:41 100 MG Montelukast Sodium (SinguLAIR) 10 mg DAILY PO 03/18/25 09:00 04/17/25 08:59 03/18/25 08:40 10 MG Pharmacy Profile Note (Lace Assessment) 1 each AD [facility] [place] 03/18/25 12:30 03/18/25 12:23 DOTTY TRIVEDI MD Mar 19, 2025 06:24
[2025-03-19 08:00] VITALS: BP 102/63; PULSE 80; RESP 18; TEMP 98.7; O2SAT 95
[2025-03-19] MEDS: ZOSYN 3.375GM +NS 50ML IVPB SCH (10:51)
[2025-03-19] MEDS ORDERED: 0.9%NACL 50ML IV SCH (11:00)
[2025-03-19 12:00] VITALS: BP 97/59; PULSE 77; RESP 18; TEMP 98.8
[2025-03-19 16:00] VITALS: BP 117/67; PULSE 72; RESP 18; TEMP 98.1
--- NOTE | 2025-03-19 16:34 | PN ---
[facility] PROGRESS NOTE Date of Service: Mar 19, 2025 Time of Service: 16:28 Attending doctor Rivero SUBJECTIVE: [ 03/17 This is a 74 year old female,a resident of [facility] with past medical history of Diabetes type 2, hypertension, morbid obesity, hyperlipidemia, hypothyroidism, obstructive sleep apnea not on CPAP, chrinic kidney disease stage 2 ,anemia ,coronary artery disease and stroke with right sided flaccidity and mild dysarthria who was brought by EMS to the ED for evaluation of low blood sugar.Patient states she has noticed she has been feeling tired,weak and sleepy most of the time and equipment engineering technician checked her blood sugar and it was low.Patient reports she received 5 units of insulin earlier today.En route patient glucose was still low and patient was given D50 reportedly.Upon ER arrival patient's blood sugar was 44 and V/S T98.2,HR91,BP 104/57 Sat 98% RA. Seen and examined patient in the ER drowsy but easily arousable,coherent , follows commands and answers questions appropriately.Patient states she feels hungry now.Patient states she has not been eating much lately she said.Patient denies fever,chills,nausea,vomiting,abdominal pain and dizziness.Labs: WBC 11, with negative left shift of neutrophils 85, hemoglobin 10, hematocrit 34 platelet count 226. Sodium 136, potassium 3.5, chloride 99, BUN 17, creatinine 1, GFR 60 total calcium 8.8 while in the ER patient was started on D10 at 80 mL/hour and current blood sugar is 212 at this time. We will admit patient for further medical management. 03/18 patient was seen by nurse practitioner and physician during rounding in room 415. Patient's alert and oriented x3 on 2 L nasal cannula satting 98%. Patient was seen resting in the bed. As per RN, patient has not been eating. He is very hard to be aroused. We will order some labs. Chest x-ray was ordered as well. Was positive for leukocytosis and patient will be placed on Rocephin 2 g daily. Urine culture to be sent to lab. We will consult speech for swallow eval. PT and case management on case already. Patient will receive 4 g of magnesium and 40 mEq of potassium. At this moment pending further kash mmendation/plan from counterintelligence analyst. Home medications were reconciled by CUSTODIAL SERVICES MANAGER. We will continue to monitor patient in the meantime. A.m. labs 03/19 patient was seen by nurse practitioner and physician during rounding in room 415. Patient's urine culture came back positive for Kluyvera Ascorbata. Bacteria sensitive to Bactrim. During hospitalization patient we will continue to be on Zosyn. WBC is trending down today is 7.1. Procalcitonin positive 3.85. Chest x-ray showed normal single-view. Patient's CK is 288 which means patient's rhabdomyolysis. At this moment we will continue to give patient fluids. At this moment I am still pending counterintelligence analyst recommendations. Patient was evaluated by the speech and pass the swallow test. As per PT and c ase management patient will go to [facility] once medically stable. We will continue to monitor patient in the meantime. A.m. labs.] REVIEW OF SYSTEMS CONSTITUTIONAL: Denies fevers, chills, or night sweats. No unintentional weight loss reported. NEUROLOGICAL: Complained of generalized body weakness and fatigue Denies headache, amaurosis fugax, sensory deficit, vertigo/spinning sensation, gait abnormalities, or tremors. ENT: No hearing loss, otalgia, otorrhea, rhinitis, rhinorrhea, hoarseness, or sore throat. CARDIOVASCULAR: Denies any exertional angina, dyspnea on exertion, orthopnea, paroxysmal nocturnal dyspnea, palpitations, life-threatening arrhythmias, claudication. PULMONARY: Denies any shortness of breath, cough, phlegm/sputum, hemoptysis, pleuritic chest pain. SLEEP: Denies morning headaches, daytime somnolence or napping. Denies difficulty falling asleep, staying asleep, waking from sleep. Denies knowledge of snoring. GASTROINTESTINAL: Denies any type of dysphagia to either liquids or solids. Denies nausea, vomiting, pyrosis, early satiety, abdominal pain, diarrhea, constipation, or changes in stool consistency or caliber. Denies coffee-ground emesis, hematemesis, hematochezia, or melanotic stools. GENITOURINARY: Denies frequency, urgency, nocturia, hematuria or incontinence (Storage/Irritative symptoms.) Low urinary stream, straining to void, urinary intermittency or hesitancy, splitting of the voiding stream, terminal dribbling. ENDOCRINOLOGIC: Denies polyuria, polydipsia, polyphagia or heat/cold intolerances. HEMATOLOGIC: Denies thrombophilia/previous clots, or coagulopathy/bleeding disorders. ONCOLOGIC: Denies personal history of malignancy. DERMATOLOGIC: Denies rashes or pruritus. PSYCHIATRIC: Denies any suicidal or homicidal ideation. Denies hallucinations. PHYSICAL EXAM GENERAL APPEARANCE: The patient is drowsy easily arousable and oriented, in no acute cardiopulmonary distress. Neurological: Right-sided flaccidity and speech impairment 2/2 history of stroke HEENT: Face is symmetric. Pupils are equal and reactive. Extraocular movements are intact. NECK: Supple. No JVD. No thyromegaly. No submental, submandibular, pre- /postauricular, occipital or supraclavicular lymphadenopathy. CHEST: Normal chest expansion. No Telemetry. LUNGS: Absence of any rales, rhonchi or any wheezing. CARDIOVASCULAR: Regular. S1 and S2 normal. No appreciable rubs, murmurs or gallops. ABDOMEN: Soft, nontender, and nondistended. There is no rebound, voluntary guarding, or rigidity. : Deferred. No Rinaldi. EXTREMITIES:Right foot drop and right upper arm contracted SKIN: No skin breakdown. Vital Signs (last 8hr) Date Time Temp Pulse Resp B/P (MAP) Pulse Ox O2 Delivery O2 Flow Rate FiO2 03/19/25 12:00 98.8 77 18 97/59 92 Room Air LABS: Laboratory: Test 03/19/25 14:53 03/19/25 03:57 03/18/25 15:45 03/18/25 05:19 Range/Units Whole Blood Glucose 346 H 70-110 MG/DL White Blood Count 7.1 4.8-10.8 K/uL Red Blood Count 3.80 L 4.00-5.50 MIL/uL Hemoglobin 11.3 L 12.0-16.0 g/dL Hematocrit 35.0 L 36-48 % Mean Corpuscular Volume 92.1 79-99 fL Mean Corpuscular Hemoglobin 29.7 27.0-33.0 pg Mean Corpuscular Hemoglobin Concent 32.3 32.0-36.0 g/dL Red Cell Distribution Width 15.9 H 11.0-15.5 % Platelet Count 187 130-400 K/uL Mean Platelet Volume 11.4 H 7.5-10.5 fL Immature Granulocyte % (Auto) 0.3 0-1 % Neutrophils (%) (Auto) 73.4 40.0-77.0 % Lymphocytes (%) (Auto) 13.7 L 21.0-51.0 % Monocytes (%) (Auto) 11.3 3.0-13.0 % Eosinophils (%) (Auto) 0.7 0.0-8.0 % Basophils (%) (Auto) 0.6 0.0-5.0 % Neutrophils # (Auto) 5.2 1.8-7.7 K/uL Lymphocytes # (Auto) 1.0 1.0-4.8 K/uL Monocytes # (Auto) 0.8 0.1-1.0 K/uL Eosinophils # (Auto) 0.05 0.00-0.70 K/uL Basophils # (Auto) 0.04 0.00-0.20 K/uL Absolute Immature Granulocyte (auto 0.02 0-1 K/uL Nucleated Red Blood Cells 0.0 0.0-0.19 % Sodium Level 138 136-145 mmol/L Potassium Level 4.4 3.5-5.1 mmol/L Chloride Level 100 L 101-111 mmol/L Carbon Dioxide Level 24 21-32 mmol/L Blood Urea Nitrogen 14 7-18 mg/dL Creatinine 1.0 0.5-1.0 mg/dL Glomerular Filtration Rate Calc 60 >90 mL/min Random Glucose 72 # 70-105 mg/dL Lactic Acid Level 1.2 0.8-2.5 mmol/L Total Calcium 8.4 L 8.5-10.1 mg/dL Magnesium Level 2.10 1.80-2.40 mg/dL Total Bilirubin 0.5 # 0.2-1.0 mg/dL Direct Bilirubin 0.2 0.0-0.3 mg/dL Aspartate Amino Transf (AST/SGOT) 23 10-37 U/L Alanine Aminotransferase (ALT/SGPT) 20 # 12-78 U/L Alkaline Phosphatase 101 50-136 U/L Ammonia 38 H 11-32 umol/L Total Creatine Kinase 288 #H 21-232 U/L B-Type Natriuretic Peptide 79 0-100 pg/mL Total Protein 6.9 6.0-8.3 g/dL Albumin 2.9 L 3.5-5.0 g/dL Amylase Level 41 25-115 U/L Procalcitonin 3.85 H 0.05-0.5 ng/mL Thyroid Stimulating Hormone (TSH) 2.20 0.36-3.74 uIU/mL Free Thyroxine (T4) Direct 1.33 0.76-1.46 ng/dL Free Triiodothyronine (T3) pg/mL 1.25 L 2.18-3.98 pg/mL Bedside Glucose Comment Notified Nurse Hemoglobin A1c 8.2 H 4.0-6.0 % Estimated Average Glucose (eAG) 189 H 70-126 mg/dL Test 03/17/25 22:09 03/17/25 17:44 Range/Units Urine Color LIGHT-YELLOW YELLOW Urine Appearance CLOUDY H CLEAR Urine pH 5.0 5.0-8.0 Urine Specific [place] 1.006 1.001-1.031 Urine Protein NEGATIVE NEGATIVE mg/dL Urine Glucose (UA) NEGATIVE NEGATIVE mg/dL Urine Ketones NEGATIVE NEGATIVE mg/dL Urine Occult Blood NEGATIVE NEGATIVE Urine Nitrate NEGATIVE NEGATIVE Urine Bilirubin NEGATIVE NEGATIVE mg/dL Urine Urobilinogen 0.2 0.2-1.0 mg/dL Urine Leukocyte Esterase 500 H NEGATIVE Indigo/uL Urine RBC None 0-1 /HPF Urine WBC 11-25 H 0-1 /HPF Urine Squamous Epithelial Cells RARE 0-2 /HPF Urine Other Crystals (Auto) 11 None Seen /HPF Urine Amorphous Crystals (Auto) RARE None Seen /LPF Urine Bacteria MANY None Seen /HPF White Cell Morphology Comment See comments Current Medications Medications (Trade) Dose Ordered Sig/Angelica Route PRN Reason Start Time Stop Time Status Last Admin Dose Admin Acetaminophen (TYLenol 325MG TAB) 650 mg Q4H PRN PO MILD PAIN (1-3) 03/17/25 19:30 04/16/25 19:29 Acetaminophen (TYLenol 325MG TAB) 650 mg Q6H PRN PO TEMPERATURE GREATER THAN 101.5 03/17/25 19:30 04/16/25 19:29 Amlodipine Besylate (NorvASC 5MG TAB) 5 mg DAILY PO 03/18/25 09:00 04/17/25 08:59 03/18/25 13:57 5 MG Atorvastatin Calcium (LIPItor 40MG) 40 mg HS PO 03/18/25 21:00 04/17/25 20:59 03/18/25 20:57 40 MG Ceftriaxone Sodium (Rocephin 2gm Inj) 2 gm Q24H IVPB 03/18/25 07:30 03/19/25 10:30 DC 03/19/25 06:26 2 GM Clopidogrel Bisulfate (plaVIX 75MG) 75 mg DAILY PO 03/18/25 09:00 04/17/25 08:59 03/19/25 08:41 75 MG Dextrose 1,000 ml @ 0 mls/hr Q0M IV 03/17/25 17:30 03/18/25 08:37 DC 03/18/25 02:30 80 MLS/HR Dextrose (D50w) 50 ml AD PRN IV HYPOGLYCEMIA PROTOCOL 03/17/25 19:30 04/16/25 19:29 Famotidine (Pepcid 20mg Tab) 20 mg DAILY PO 03/18/25 09:00 04/17/25 08:59 03/19/25 08:41 20 MG Gabapentin (NEURontin 100 mg CAP) 100 mg TID PO 03/18/25 09:00 04/17/25 08:59 03/19/25 13:48 100 MG Glucagon (Glucagon 1mg Kit) 1 mg AD PRN IM HYPOGLYCEMIA PROTOCOL 03/17/25 19:30 04/16/25 19:29 Home Med (Home Medication) (Levocetirizine Dihydrochloride 5MG TAB) HS PO 03/18/25 21:00 04/17/25 20:59 Hydrochlorothiazide (hydroCHLOROthiazide 25MG) 12.5 mg DAILY PO 03/18/25 09:00 04/17/25 08:59 03/18/25 08:41 12.5 MG Insulin Glargine (LANtus 100 UNITS/ML 10 ML VIAL) 15 units DAILY SQ 03/19/25 09:00 04/18/25 08:59 03/19/25 08:37 15 UNITS Insulin Human Regular (humuLIN R 100 UNIT/ML 3ML) 5 unit TIDAC SQ 03/19/25 17:00 04/18/25 16:59 Insulin Human Regular (humuLIN R 100 UNIT/ML 3ML) INSULIN SLIDING SCAL... ACHS SQ 03/18/25 17:00 04/17/25 16:59 03/19/25 13:48 7 UNIT Levothyroxine Sodium (SYNTHroid 50MCG TAB) 50 mcg SYN PO 03/19/25 06:30 04/18/25 06:29 03/19/25 06:26 50 MCG Losartan Potassium (CozAAR 100MG TAB) 100 mg DAILY PO 03/18/25 09:00 04/17/25 08:59 03/18/25 08:41 100 MG Magnesium Sulfate 50 ml @ 0 mls/hr PROTOCOL PRN IV OTHER [SEE ORDER COMMENTS] 03/17/25 19:30 04/16/25 19:29 03/18/25 08:43 25 MLS/HR Montelukast Sodium (SinguLAIR) 10 mg DAILY PO 03/18/25 09:00 04/17/25 08:59 03/19/25 08:41 10 MG Ondansetron HCl (zoFRAN 4MG INJ) 4 mg Q6H PRN IV NAUSEA/VOMITING 03/17/25 19:30 04/16/25 19:29 Pharmacy Profile Note (Lace Assessment) 1 each AD MISC 03/18/25 12:30 03/18/25 12:23 DC Piperacillin Sod/ Tazobactam Sod (Zosyn 3.375gm+NS 50ml) 3.375 gm Q8H IVPB 03/19/25 10:30 03/29/25 10:29 03/19/25 10:51 3.375 GM Potassium Chloride 100 ml @ 100 mls/hr AD PRN IV POTASSIUM PROTOCOL 03/17/25 19:30 04/16/25 19:29 03/18/25 03:07 100 MLS/HR Potassium Chloride (K-Dur/Klor-Con 20meq) 20 meq AD PRN PO POTASSIUM PROTOCOL 03/17/25 19:30 04/16/25 19:29 03/18/25 02:37 20 MEQ Potassium Chloride (KCl 10% Elixir 20meq/15ml) 20 meq AD PRN PO POTASSIUM PROTOCOL 03/17/25 19:30 04/16/25 19:29 Sodium Chloride (NS 50ml) 50 ml AD IV 03/19/25 11:00 03/19/25 10:30 DC DIAGNOSTICS / RADIOLOGY: [ ] ASSESSMENT: Acute hypoxic respiratory failure POA Persistent hypoglycemia with uncontrolled Diabetes type 2 POA Mild Acute metabolic encephalopathy POA Uncontrolled diabetes type 2 POA Acute on chronic anemia POA Debility POA Chronic kidney disease stage II POA Morbid obesity POA Obstructive sleep apnea not on CPAP therapy POA Uncontrolled Hypertension POA Acute complicated cystitis POA Electrolyte imbalance hyponatremia Na 132 hypomagnesemia mg 1.3 hypokalemia K3.6 POA Moderate severe malnutrition POA Hyperlipidemia POA Hypothyroidism POA Leukocytosis 11.9 POA History of CVA with right sided flaccidity and mild dysarthria POA PLAN: Patient's urine culture came back positive for Kluyvera Ascorbata. Bacteria sensitive to Bactrim. During hospitalization patient we will continue to be on Zosyn. WBC is trending down today is 7.1. Procalcitonin positive 3.85. Chest x-ray showed normal single-view. Patient's CK is 288 which means patient's rhabdomyolysis. At this moment we will continue to give patient fluids. At this moment I am still pending counterintelligence analyst recommendations. Patient was evaluated by the speech and pass the swallow test. As per PT and case management patient will go to [facility] once medically stable. We will continue to monitor patient in the meantime. A.m. labs. Continue patient in medical telemetry Continue D10 at 80 mL/hour blood sugar support Continue famotidine 20 mg p.o. daily for GI prophylaxis We will replace electrolytes as needed per protocol We will request for glucometer q.2 hours x3 with hypoglycemia protocol We will add prn medication for fever,pain,cough , nausea and vomiting Fall precautions Request for neuro check q.4 hours per nursing Further orders to follow depending on above results Case discussed with attending physician and came up with above treatment and plan of care. ATTESTATION BY PHYSICIAN I reviewed the documentation, medical decision making, and treatment plan as noted by the mid-level provider above. I agree with the findings and plan of care. Oscar Rivero MD, [facility] Mar 19, 2025 16:34 OSCAR RIVERO MD Mar 21, 2025 12:50
[2025-03-19 20:00] VITALS: BP 117/63; PULSE 82; RESP 18; TEMP 98; O2SAT 92
[2025-03-20] VITALS: BP 115/68; PULSE 65; RESP 20; TEMP 99.5
[2025-03-20] MEDS: DEXTROSE 50%-WATER 50 ML DISP.SYRIN IV PRN (00:18)
[2025-03-20 03:44] LABS: IMMATURE GRANULOCYTE ABSOLUTE 0.01 K/uL (0-1); NUCLEATED RED BLOOD CELLS 0.0 % (0.0-0.19); PLATELET COUNT (AUTO) 179 K/uL (130-400); RED BLOOD CELL COUNT(AUTO) 3.76 MIL/uL (4.00-5.50); RED CELL DISTRIBUTION WIDTH 15.8 % (11.0-15.5); WHITE BLOOD COUNT (AUTO) 7.3 K/uL (4.8-10.8)
[2025-03-20 04:00] VITALS: BP 111/65; PULSE 79; RESP 20; TEMP 98.1
[2025-03-20 04:12] LABS: ASPARTATE AMINOTRANSFERASE 19.0 U/L (10-37); CREATININE 1.0 mg/dL (0.5-1.0); GLOMERULAR FILTR. RATE CALC 60.0 mL/min (>90); GLUCOSE,RANDOM 188.0 mg/dL (70-105); SODIUM SERUM 135.0 mmol/L (136-145); TOTAL PROTEIN, SERUM 6.8 g/dL (6.0-8.3); UREA NITROGEN, BLOOD 20.0 mg/dL (7-18)
[2025-03-20 08:00] VITALS: BP 136/71; PULSE 71; RESP 18; TEMP 99.4; O2SAT 98
--- NOTE | 2025-03-20 11:46 | PN ---
[facility] PROGRESS NOTE Date of Service: Mar 20, 2025 Time of Service: 11:[address] Rivero SUBJECTIVE: [ 03/17 This is a 74 year old female,a resident of [facility] with past medical history of Diabetes type 2, hypertension, morbid obesity, hyperlipidemia, hypothyroidism, obstructive sleep apnea not on CPAP, chrinic kidney disease stage 2 ,anemia ,coronary artery disease and stroke with right sided flaccidity and mild dysarthria who was brought by EMS to the ED for evaluation of low blood sugar.Patient states she has noticed she has been feeling tired,weak and sleepy most of the time and poultry field service technician checked her blood sugar and it was low.Patient reports she received 5 units of insulin earlier today.En route patient glucose was still low and patient was given D50 reportedly.Upon ER arrival patient's blood sugar was 44 and V/S T98.2,HR91,BP 104/57 Sat 98% RA. Seen and examined patient in the ER drowsy but easily arousable,coherent , follows commands and answers questions appropriately.Patient states she feels hungry now.Patient states she has not been eating much lately she said.Patient denies fever,chills,nausea,vomiting,abdominal pain and dizziness.Labs: WBC 11, with negative left shift of neutrophils 85, hemoglobin 10, hematocrit 34 platelet count 226. Sodium 136, potassium 3.5, chloride 99, BUN 17, creatinine 1, GFR 60 total calcium 8.8 while in the ER patient was started on D10 at 80 mL/hour and current blood sugar is 212 at this time. We will admit patient for further medical management. 03/18 patient was seen by nurse practitioner and physician during rounding in room 415. Patient's alert and oriented x3 on 2 L nasal cannula satting 98%. Patient was seen resting in the bed. As per RN, patient has not been eating. He is very hard to be aroused. We will order some labs. Chest x-ray was ordered as well. Was positive for leukocytosis and patient will be placed on Rocephin 2 g daily. Urine culture to be sent to lab. We will consult speech for swallow eval. PT and case management on case already. Patient will receive 4 g of magnesium and 40 mEq of potassium. At this moment pending further recommendation/plan from garnisher. Home medications were reconciled by [employer]. We will continue to monitor patient in the meantime. A.m. labs 03/19 patient was seen by nurse practitioner and physician during rounding in room 415. Patient's urine culture came back positive for Kluyvera Ascorbata. Bacteria sensitive to Bactrim. During hospitalization patient we will continue to be on Zosyn. WBC is trending down today is 7.1. Procalcitonin positive 3.85. Chest x-ray showed normal single-view. Patient's CK is 288 which means patient's rhabdomyolysis. At this moment we will continue to give patient fluids. At this moment I am still pending garnisher recommendations. Patient was evaluated by the speech and pass the swallow test. As per PT and case management patient will go to [facility] once medically stable. We will continue to monitor patient in the meantime. A.m. labs. 03/20 patient was seen by nurse practitioner and physician during rounding in room 415. Patient is alert oriented x4 on 2 L nasal cannula at this moment. Patient's sugar has dropped down in the middle of the night down to 46 and morning sugar was 190 repeated to 80. As per garnisher patient will be started on Lantus 15 units daily and adjust for fasting glucose. Start regular insulin 5 units 3 times a day before meals and adjust for post prandial glucose. Continue low sliding scale insulin. Glucose monitor q.6 hours. Once patient will be discharged home patient will need decrease Tresiba to 13 units daily same as Humalog 5 units t.i.d. before meals and majora 2.5 mg weekly and resume other medications. Patient to follow up outpatient with garnisher . Final urine culture grew Kluyvera Ascorbata. Bacteria sensitive to Bactrim. Once patient will be medically cleared patient will be discharged to [facility]. We will continue to monitor patient in the meantime. A.m. labs.] REVIEW OF SYSTEMS CONSTITUTIONAL: Denies fevers, chills, or night sweats. No unintentional weight loss reported. NEUROLOGICAL: Complained of generalized body weakness and fatigue Denies headache, amaurosis fugax, sensory deficit, vertigo/spinning sensation, gait abnormalities, or tremors. ENT: No hearing loss, otalgia, otorrhea, rhinitis, rhinorrhea, hoarseness, or sore throat. CARDIOVASCULAR: Denies any exertional angina, dyspnea on exertion, orthopnea, paroxysmal nocturnal dyspnea, palpitations, life-threatening arrhythmias, claudication. PULMONARY: , cough, phlegm/sputum, hemoptysis, pleuritic chest pain. Complains of minimal shortness of breaths SLEEP: Denies morning headaches, daytime somnolence or napping. Denies difficulty falling asleep, staying asleep, waking from sleep. Denies knowledge of snoring. GASTROINTESTINAL: Denies any type of dysphagia to either liquids or solids. Denies nausea, vomiting, pyrosis, early satiety, abdominal pain, diarrhea, constipation, or changes in stool consistency or caliber. Denies coffee-ground emesis, hematemesis, hematochezia, or melanotic stools. GENITOURINARY: Denies frequency, urgency, nocturia, hematuria or incontinence (Storage/Irritative symptoms.) Low urinary stream, straining to void, urinary intermittency or hesitancy, splitting of the voiding stream, terminal dribbling. ENDOCRINOLOGIC: Denies polyuria, polydipsia, polyphagia or heat/cold intolerances. HEMATOLOGIC: Denies thrombophilia/previous clots, or coagulopathy/bleeding disorders. ONCOLOGIC: Denies personal history of malignancy. DERMATOLOGIC: Denies rashes or pruritus. PSYCHIATRIC: Denies any suicidal or homicidal ideation. Denies hallucinations. PHYSICAL EXAM GENERAL APPEARANCE: The patient is drowsy but easily arousable and oriented, in no acute cardiopulmonary distress. Neurological: Right-sided flaccidity and speech impairment 2/2 history of stroke HEENT: Face is symmetric. Pupils are equal and reactive. Extraocular movements are intact. NECK: Supple. No JVD. No thyromegaly. No submental, submandibular, pre- /postauricular, occipital or supraclavicular lymphadenopathy. CHEST: Normal chest expansion. No Telemetry. LUNGS: Absence of any rales, rhonchi or any wheezing. CARDIOVASCULAR: Regular. S1 and S2 normal. No appreciable rubs, murmurs or gallops. ABDOMEN: Soft, nontender, and nondistended. There is no rebound, voluntary guarding, or rigidity. : Deferred. No Rinaldi. EXTREMITIES:Right foot drop and right upper arm contracted SKIN: No skin breakdown. Vital Signs (last 8hr) Date Time Temp Pulse Resp B/P (MAP) Pulse Ox O2 Delivery O2 Flow Rate FiO2 10/19/25 08:00 99.3 71 18 136/71 94 Room Air 03/20/25 04:00 98.1 79 20 111/65 100 Room Air LABS: Laboratory: Test 03/20/25 11:12 03/20/25 03:24 03/20/25 00:15 03/19/25 03:57 Range/Units Whole Blood Glucose 280 H 70-110 MG/DL White Blood Count 7.3 4.8-10.8 K/uL Red Blood Count 3.76 L 4.00-5.50 MIL/uL Hemoglobin 11.1 L 12.0-16.0 g/dL Hematocrit 35.3 L 36-48 % Mean Corpuscular Volume 93.9 79-99 fL Mean Corpuscular Hemoglobin 29.5 27.0-33.0 pg Mean Corpuscular Hemoglobin Concent 31.4 L 32.0-36.0 g/dL Red Cell Distribution Width 15.8 H 11.0-15.5 % Platelet Count 179 130-400 K/uL Mean Platelet Volume 11.4 H 7.5-10.5 fL Immature Granulocyte % (Auto) 0.1 0-1 % Neutrophils (%) (Auto) 70.9 40.0-77.0 % Lymphocytes (%) (Auto) 11.7 L 21.0-51.0 % Monocytes (%) (Auto) 12.1 3.0-13.0 % Eosinophils (%) (Auto) 4.9 0.0-8.0 % Basophils (%) (Auto) 0.3 0.0-5.0 % Neutrophils # (Auto) 5.2 1.8-7.7 K/uL Lymphocytes # (Auto) 0.9 L 1.0-4.8 K/uL Monocytes # (Auto) 0.9 0.1-1.0 K/uL Eosinophils # (Auto) 0.36 0.00-0.70 K/uL Basophils # (Auto) 0.02 0.00-0.20 K/uL Absolute Immature Granulocyte (auto 0.01 0-1 K/uL Nucleated Red Blood Cells 0.0 0.0-0.19 % Sodium Level 135 L 136-145 mmol/L Potassium Level 4.4 3.5-5.1 mmol/L Chloride Level 101 101-111 mmol/L Carbon Dioxide Level 25 21-32 mmol/L Blood Urea Nitrogen 20 H 7-18 mg/dL Creatinine 1.0 0.5-1.0 mg/dL Glomerular Filtration Rate Calc 60 >90 mL/min Random Glucose 188 #H 70-105 mg/dL Total Calcium 8.2 L 8.5-10.1 mg/dL Magnesium Level 2.10 1.80-2.40 mg/dL Total Bilirubin 0.5 0.2-1.0 mg/dL Aspartate Amino Transf (AST/SGOT) 19 10-37 U/L Alanine Aminotransferase (ALT/SGPT) 15 # 12-78 U/L Alkaline Phosphatase 101 50-136 U/L Total Protein 6.8 6.0-8.3 g/dL Albumin 2.7 L 3.5-5.0 g/dL Bedside Glucose Comment Notified Nurse Lactic Acid Level 1.2 0.8-2.5 mmol/L Direct Bilirubin 0.2 0.0-0.3 mg/dL Ammonia 38 H 11-32 umol/L Total Creatine Kinase 288 #H 21-232 U/L B-Type Natriuretic Peptide 79 0-100 pg/mL Amylase Level 41 25-115 U/L Procalcitonin 3.85 H 0.05-0.5 ng/mL Thyroid Stimulating Hormone (TSH) 2.20 0.36-3.74 uIU/mL Free Thyroxine (T4) Direct 1.33 0.76-1.46 ng/dL Free Triiodothyronine (T3) pg/mL 1.25 L 2.18-3.98 pg/mL Current Medications Medications (Trade) Dose Ordered Sig/Angelica Route PRN Reason Start Time Stop Time Status Last Admin Dose Admin Acetaminophen (TYLenol 325MG TAB) 650 mg Q4H PRN PO MILD PAIN (1-3) 03/17/25 19:30 04/16/25 19:29 Acetaminophen (TYLenol 325MG TAB) 650 mg Q6H PRN PO TEMPERATURE GREATER THAN 101.5 03/17/25 19:30 04/16/25 19:29 Amlodipine Besylate (NorvASC 5MG TAB) 5 mg DAILY PO 03/18/25 09:00 04/17/25 08:59 03/20/25 08:26 5 MG Atorvastatin Calcium (LIPItor 40MG) 40 mg HS PO 03/18/25 21:00 04/17/25 20:59 03/19/25 20:51 40 MG Ceftriaxone Sodium (Rocephin 2gm Inj) 2 gm Q24H IVPB 03/18/25 07:30 03/19/25 10:30 DC 03/19/25 06:26 2 GM Clopidogrel Bisulfate (plaVIX 75MG) 75 mg DAILY PO 03/18/25 09:00 04/17/25 08:59 03/20/25 08:25 75 MG Dextrose 1,000 ml @ 0 mls/hr Q0M IV 03/17/25 17:30 03/18/25 08:37 DC 03/18/25 02:30 80 MLS/HR Dextrose (D50w) 50 ml AD PRN IV HYPOGLYCEMIA PROTOCOL 03/17/25 19:30 04/16/25 19:29 03/20/25 00:18 50 ML Famotidine (Pepcid 20mg Tab) 20 mg DAILY PO 03/18/25 09:00 04/17/25 08:59 03/20/25 08:26 20 MG Gabapentin (NEURontin 100 mg CAP) 100 mg TID PO 03/18/25 09:00 04/17/25 08:59 03/20/25 08:26 100 MG Glucagon (Glucagon 1mg Kit) 1 mg AD PRN IM HYPOGLYCEMIA PROTOCOL 03/17/25 19:30 04/16/25 19:29 Home Med (Home Medication) (Levocetirizine Dihydrochloride 5MG TAB) HS PO 03/18/25 21:00 04/17/25 20:59 Hydrochlorothiazide (hydroCHLOROthiazide 25MG) 12.5 mg DAILY PO 03/18/25 09:00 04/17/25 08:59 03/20/25 08:26 12.5 MG Insulin Glargine (LANtus 100 UNITS/ML 10 ML VIAL) 10 units DAILY SQ 03/20/25 09:00 04/19/25 08:59 03/20/25 08:31 10 UNITS Insulin Glargine (LANtus 100 UNITS/ML 10 ML VIAL) 15 units DAILY SQ 03/19/25 09:00 03/20/25 07:24 DC 03/19/25 08:37 15 UNITS Insulin Human Regular (humuLIN R 100 UNIT/ML 3ML) 5 unit TIDAC SQ 03/19/25 17:00 04/18/25 16:59 03/20/25 08:23 5 UNIT Insulin Human Regular (humuLIN R 100 UNIT/ML 3ML) INSULIN SLIDING SCAL... ACHS SQ 03/18/25 17:00 04/17/25 16:59 03/19/25 20:52 2 UNIT Levothyroxine Sodium (SYNTHroid 50MCG TAB) 50 mcg SYN PO 03/19/25 06:30 04/18/25 06:29 03/20/25 06:19 50 MCG Losartan Potassium (CozAAR 100MG TAB) 100 mg DAILY PO 03/18/25 09:00 04/17/25 08:59 03/20/25 08:26 100 MG Magnesium Sulfate 50 ml @ 0 mls/hr PROTOCOL PRN IV OTHER [SEE ORDER COMMENTS] 03/17/25 19:30 04/16/25 19:29 03/18/25 08:43 25 MLS/HR Montelukast Sodium (SinguLAIR) 10 mg DAILY PO 03/18/25 09:00 04/17/25 08:59 03/20/25 08:25 10 MG Ondansetron HCl (zoFRAN 4MG INJ) 4 mg Q6H PRN IV NAUSEA/VOMITING 03/17/25 19:30 04/16/25 19:29 Pharmacy Profile Note (Lace Assessment) 1 each AD MISC 03/18/25 12:30 03/18/25 12:23 DC Piperacillin Sod/ Tazobactam Sod (Zosyn 3.375gm+NS 50ml) 3.375 gm Q8H IVPB 03/19/25 10:30 03/29/25 10:29 03/20/25 10:03 3.375 GM Potassium Chloride 100 ml @ 100 mls/hr AD PRN IV POTASSIUM PROTOCOL 03/17/25 19:30 04/16/25 19:29 03/18/25 03:07 100 MLS/HR Potassium Chloride (K-Dur/Klor-Con 20meq) 20 meq AD PRN PO POTASSIUM PROTOCOL 03/17/25 19:30 04/16/25 19:29 03/18/25 02:37 20 MEQ Potassium Chloride (KCl 10% Elixir 20meq/15ml) 20 meq AD PRN PO POTASSIUM PROTOCOL 03/17/25 19:30 04/16/25 19:29 Sodium Chloride (NS 50ml) 50 ml AD IV 03/19/25 11:00 03/19/25 10:30 DC DIAGNOSTICS / RADIOLOGY: [ ] ASSESSMENT: Acute hypoxic respiratory failure POA Persistent hypoglycemia with uncontrolled Diabetes type 2 POA Mild Acute metabolic encephalopathy POA Uncontrolled diabetes type 2 POA Acute on chronic anemia POA Debility POA Chronic kidney disease stage II POA Morbid obesity POA Obstructive sleep apnea not on CPAP therapy POA Uncontrolled Hypertension POA Acute complicated cystitis POA Electrolyte imbalance hyponatremia Na 132 hypomagnesemia mg 1.3 hypokalemia K3.6 POA Moderate severe malnutrition POA Hyperlipidemia POA Hypothyroidism POA Leukocytosis 11.9 POA History of CVA with right sided flaccidity and mild dysarthria POA PLAN: Patient is alert oriented x4 on 2 L nasal cannula at this moment. Patient's sugar has dropped down in the middle of the night down to 46 and morning sugar was 190 repeated to 80. As per garnisher patient will be started on Lantus 15 units daily and adjust for fasting glucose. Start regular insulin 5 units 3 times a day before meals and adjust for post prandial glucose. Continue low sliding scale insulin. Glucose monitor q.6 hours. Once patient will be discharged home patient will need decrease Tresiba to 13 units daily same as Humalog 5 units t.i.d. before meals and majora 2.5 mg weekly and resume other medications. Patient to follow up outpatient with garnisher . Once patient will be medically cleared patient will be discharged to [facility]. We will continue to monitor patient in the meantime. A.m. labs. Patient's urine culture came back positive for Kluyvera Ascorbata. Bacteria sensitive to Bactrim. Chest x-ray showed normal single-view. Patient's CK is 288 which means patient's rhabdomyolysis. At this moment we will continue to give patient fluids. Continue patient in medical telemetry Continue D10 at 80 mL/hour blood sugar support Continue famotidine 20 mg p.o. daily for GI prophylaxis We will replace electrolytes as needed per protocol We will request for glucometer q.2 hours x3 with hypoglycemia protocol We will add prn medication for fever,pain,cough , nausea and vomiting Fall precautions Request for neuro check q.4 hours per nursing Further orders to follow depending on above results Case discussed with attending physician and came up with above treatment and plan of care. ATTESTATION BY PHYSICIAN I reviewed the documentation, medical decision making, and treatment plan as noted by the mid-level provider above. I agree with the findings and plan of care. Roge Rivero MD, [facility] Mar 20, 2025 11:46 ROGE RIVERO MD Mar 21, 2025 12:51
[2025-03-20 12:00] VITALS: BP 101/62; PULSE 73; RESP 16; TEMP 98.1
[2025-03-20 16:00] VITALS: BP 108/64; PULSE 71; RESP 19; TEMP 98.2
[2025-03-20 20:00] VITALS: BP 103/71; PULSE 72; RESP 20; TEMP 98.5; O2SAT 97
--- NOTE | 2025-03-20 22:50 | PN ---
Endocrinology progress note DOS:03/20/25 subjective: Home diabetic regimen: tresiba 20 units daily, humalog 5 units tid before meals, mounjaro 2.5 mg weekly, metformin 500 mg bid Hba1c 8.2% reports that he follows with floor surfacer dr. rivera for dm-2 management. he has dm-2 for many years. patient reports that he started having hypoglycemia after started on mounjaro. lowest glucose was 40 mg/dl at home and denies any seizures. REVIEW OF SYSTEMS CONSTITUTIONAL: Denies fevers, chills, or night sweats. No unintentional weight loss reported. NEUROLOGICAL: Complained of generalized body weakness and fatigue Denies headache, amaurosis fugax, sensory deficit, vertigo/spinning sensation, gait abnormalities, or tremors. ENT: No hearing loss, otalgia, otorrhea, rhinitis, rhinorrhea, hoarseness, or sore throat. CARDIOVASCULAR: Denies any exertional angina, dyspnea on exertion, orthopnea, paroxysmal nocturnal dyspnea, palpitations, life-threatening arrhythmias, claudication. PULMONARY: Denies any shortness of breath, cough, phlegm/sputum, hemoptysis, pleuritic chest pain. SLEEP: Denies morning headaches, daytime somnolence or napping. Denies difficulty falling asleep, staying asleep, waking from sleep. Denies knowledge of snoring. GASTROINTESTINAL: Denies any type of dysphagia to either liquids or solids. Denies nausea, vomiting, pyrosis, early satiety, abdominal pain, diarrhea, constipation, or changes in stool consistency or caliber. Denies coffee-ground emesis, hematemesis, hematochezia, or melanotic stools. GENITOURINARY: Denies frequency, urgency, nocturia, hematuria or incontinence (Storage/Irritative symptoms.) Low urinary stream, straining to void, urinary intermittency or hesitancy, splitting of the voiding stream, terminal dribbling. ENDOCRINOLOGIC: Denies polyuria, polydipsia, polyphagia or heat/cold intolerances. HEMATOLOGIC: Denies thrombophilia/previous clots, or coagulopathy/bleeding disorders. ONCOLOGIC: Denies personal history of malignancy. DERMATOLOGIC: Denies rashes or pruritus. PSYCHIATRIC: Denies any suicidal or homicidal ideation. Denies hallucinations. PAST MEDICAL HISTORY: [ Diabetes type 2, hypertension, morbid obesity, hyperlipidemia, hypothyroidism, obstructive sleep apnea not on CPAP, coronary artery disease and stroke with right-sided weakness ] PAST SURGICAL HISTORY: [ x2 and left knee surgery ] PAST SOCIAL HISTORY: [Patient is a resident of assisted living. Patient denies alcohol cigarette and recreational drug use ] FAMILY HISTORY: [ Noncontributory ] Coded Allergies: No Known Allergies (Unverified Allergy, Unknown, 02/23/24) ASSESSMENT: fasting hypoglycemia at home due to tresiba insulin. hypoglycemia resolved and glucose are improving uncontrolled Diabetes type 2 POA Home diabetic regimen: tresiba 20 units daily, humalog 5 units tid before meals, mounjaro 2.5 mg weekly, metformin 500 mg bid Hba1c 8.2% reports that he follows with floor surfacer dr. rivera for dm-2 management. he has dm-2 for many years. patient reports that he started having hypoglycemia after started on mounjaro. lowest glucose was 40 mg/dl at home and denies any seizures. Mild Acute metabolic encephalopathy POA improved Hypothyroidism POA on levothyroxine 50 mcg daily. Acute on chronic anemia POA Debility POA Chronic kidney disease stage II POA Morbid obesity POA Obstructive sleep apnea not on CPAP therapy POA Hypertension POA Hyperlipidemia POA History of CVA with right sided flaccidity and mild dysarthria POA PLAN: decrease Lantus to 10 units daily and adjust for fasting glucose. continue Regular insulin 5 units three times before meals and adjust for post- prandial glucose. Continue low dose sliding scale insulin. Monitor glucose q x 6 hourly. Continue carb consistent diet. Keep glucose less than 180 mg/dl. Patient will need to decrease tersiba to 13 units daily, same humalog 5 units tid before meals, mounjaro 2.5 mg weekly and resume other home meds. follow with endocrinology dr. rivera. Vitals/Labs Vital Signs Date Time Temp Pulse Resp B/P (MAP) Pulse Ox O2 Delivery O2 Flow Rate FiO2 03/20/25 20:00 98.4 72 20 103/71 93 Room Air 03/20/25 08:00 0 21 Laboratory Tests 03/20/25 03:24 Medications Current Medications Dextrose 1,000 ml @ 0 mls/hr Q0M IV Last administered on 03/18/25at 02:30; Start 03/17/25 at 17:30; Stop 03/18/25 at 08:37; Status DC Acetaminophen 650 mg Q6H PRN PO; Start 03/17/25 at 19:30; Stop 04/16/25 at 19:29 Acetaminophen 650 mg Q4H PRN PO; Start 03/17/25 at 19:30; Stop 04/16/25 at 19:29 Ondansetron HCl 4 mg Q6H PRN IV; Start 03/17/25 at 19:30; Stop 04/16/25 at 19:29 Famotidine 20 mg DAILY PO Last administered on 03/20/25at 08:26; Start 03/18/25 at 09:00; Stop 04/17/25 at 08:59 Dextrose 50 ml AD PRN IV Last administered on 03/20/25at 00:18; Start 03/17/25 at 19:30; Stop 04/16/25 at 19:29 Glucagon 1 mg AD PRN IM; Start 03/17/25 at 19:30; Stop 04/16/25 at 19:29 Magnesium Sulfate 50 ml @ 0 mls/hr PROTOCOL PRN IV Last administered on 03/18/25at 08:43; Start 03/17/25 at 19:30; Stop 04/16/25 at 19:29 Potassium Chloride 100 ml @ 100 mls/hr AD PRN IV Last administered on 03/18/25at 03:07; Start 03/17/25 at 19:30; Stop 04/16/25 at 19:29 Potassium Chloride 20 meq AD PRN PO; Start 03/17/25 at 19:30; Stop 04/16/25 at 19:29 Potassium Chloride 20 meq AD PRN PO Last administered on 03/18/25at 02:37; Start 03/17/25 at 19:30; Stop 04/16/25 at 19:29 Potassium Chloride 40 meq ONCE ONCE PO Last administered on 03/18/25at 08:41; Start 03/18/25 at 07:30; Stop 03/18/25 at 07:31; Status DC Magnesium Sulfate 4 gm ONCE ONCE IV; Start 03/18/25 at 07:30; Stop 03/18/25 at 07:31; Status DC Amlodipine Besylate 5 mg DAILY PO Last administered on 03/20/25at 08:26; Start 03/18/25 at 09:00; Stop 04/17/25 at 08:59 Atorvastatin Calcium 40 mg HS PO Last administered on 03/20/25at 21:13; Start 03/18/25 at 21:00; Stop 04/17/25 at 20:59 Clopidogrel Bisulfate 75 mg DAILY PO Last administered on 03/20/25at 08:25; Start 03/18/25 at 09:00; Stop 04/17/25 at 08:59 Gabapentin 100 mg TID PO Last administered on 03/20/25at 21:14; Start 03/18/25 at 09:00; Stop 04/17/25 at 08:59 Montelukast Sodium 10 mg DAILY PO Last administered on 03/20/25at 08:25; Start 03/18/25 at 09:00; Stop 04/17/25 at 08:59 Home Med (Levocetirizine Dihydrochloride 5MG TAB) HS PO; Start 03/18/25 at 21:00; Stop 04/17/25 at 20:59 Levothyroxine Sodium 50 mcg SYN PO Last administered on 03/20/25at 06:19; Start 03/19/25 at 06:30; Stop 04/18/25 at 06:29 Losartan Potassium 100 mg DAILY PO Last administered on 03/20/25at 08:26; Start 03/18/25 at 09:00; Stop 04/17/25 at 08:59 Hydrochlorothiazide 12.5 mg DAILY PO Last administered on 03/20/25at 08:26; Start 03/18/25 at 09:00; Stop 04/17/25 at 08:59 Ceftriaxone Sodium 2 gm Q24H IVPB Last administered on 03/19/25at 06:26; Start 03/18/25 at 07:30; Stop 03/19/25 at 10:30; Status DC Pharmacy Profile Note 1 each AD MISC; Start 03/18/25 at 12:30; Stop 03/18/25 at 12:23; Status DC Insulin Human Regular INSULIN SLIDING SCAL... ACHS SQ Last administered on 03/20/25at 21:14; Start 03/18/25 at 17:00; Stop 04/17/25 at 16:59 Insulin Glargine 15 units DAILY SQ Last administered on 03/19/25at 08:37; Start 03/19/25 at 09:00; Stop 03/20/25 at 07:24; Status DC Piperacillin Sod/ Tazobactam Sod 3.375 gm Q8H IVPB Last administered on 03/20/25at 17:23; Start 03/19/25 at 10:30; Stop 03/29/25 at 10:29 Sodium Chloride 50 ml AD IV; Start 03/19/25 at 11:00; Stop 03/19/25 at 10:30; Status DC Insulin Human Regular 5 unit TIDAC SQ Last administered on 03/20/25at 16:33; Start 03/19/25 at 17:00; Stop 04/18/25 at 16:59 Insulin Glargine 10 units DAILY SQ Last administered on 03/20/25at 08:31; Start 03/20/25 at 09:00; Stop 04/19/25 at 08:59 DOTTY PERALTA MD Mar 20, 2025 22:50
[2025-03-21] VITALS: BP 96/62; PULSE 72; RESP 20; TEMP 98.2
[2025-03-21 04:00] VITALS: BP 109/68; PULSE 97; RESP 20; TEMP 97.6
[2025-03-21 06:56] LABS: IMMATURE GRANULOCYTE ABSOLUTE 0.02 K/uL (0-1); NUCLEATED RED BLOOD CELLS 0.0 % (0.0-0.19); PLATELET COUNT (AUTO) 152 K/uL (130-400); RED BLOOD CELL COUNT(AUTO) 3.99 MIL/uL (4.00-5.50); RED CELL DISTRIBUTION WIDTH 15.7 % (11.0-15.5); WHITE BLOOD COUNT (AUTO) 6.5 K/uL (4.8-10.8)
[2025-03-21 07:13] LABS: ASPARTATE AMINOTRANSFERASE 17.0 U/L (10-37); CREATINE KINASE, TOTAL 82.0 U/L (21-232); CREATININE 0.9 mg/dL (0.5-1.0); GLOMERULAR FILTR. RATE CALC 68.0 mL/min (>90); GLUCOSE,RANDOM 108.0 mg/dL (70-105); SODIUM SERUM 137.0 mmol/L (136-145); TOTAL PROTEIN, SERUM 6.6 g/dL (6.0-8.3); UREA NITROGEN, BLOOD 15.0 mg/dL (7-18)
[2025-03-21 07:47] VITALS: BP 110/60; PULSE 70; RESP 16; TEMP 98.4
[2025-03-21 11:49] VITALS: BP 104/55; PULSE 62; RESP 20; TEMP 98.1
--- NOTE | 2025-03-21 11:52 | NUR ---
cm note spoke to Myrna at [facility] [phone]. and states pt can return back to assisted living. have nurse call report to nurses at # [phone].
[2025-03-21] MEDS ORDERED: SULF1TAB42 PO (12:32)
[2025-03-21] MEDS ORDERED: INSU100I24 SQ (12:38)
--- NOTE | 2025-03-21 12:57 | PN ---
[facility] PROGRESS NOTE Date of Service: Mar 21, 2025 Time of Service: 12:56 SUBJECTIVE: [ 03/17 This is a 74 year old female,a resident of [facility] with past medical history of Diabetes type 2, hypertension, morbid obesity, hyperlipidemia, hypothyroidism, obstructive sleep apnea not on CPAP, chrinic kidney disease stage 2 ,anemia ,coronary artery disease and stroke with right sided flaccidity and mild dysarthria who was brought by EMS to the ED for evaluation of low blood sugar.Patient states she has noticed she has been feeling tired,weak and sleepy most of the time and poultry service technician checked her blood sugar and it was low.Patient reports she received 5 units of insulin earlier today.En route patient glucose was still low and patient was given D50 reportedly.Upon ER arrival patient's blood sugar was 44 and V/S T98.2,HR91,BP 104/57 Sat 98% RA. Seen and examined patient in the ER drowsy but easily arousable,coherent , follows commands and answers questions appropriately.Patient states she feels hungry now.Patient states she has not been eating much lately she said.Patient denies fever,chills,nausea,vomiting,abdominal pain and dizziness.Labs: WBC 11, with negative left shift of neutrophils 85, hemoglobin 10, hematocrit 34 platelet count 226. Sodium 136, potassium 3.5, chloride 99, BUN 17, creatinine 1, GFR 60 total calcium 8.8 while in the ER patient was started on D10 at 80 mL/hour and current blood sugar is 212 at this time. We will admit patient for further medical management. 03/18 patient was seen by nurse practitioner and physician during rounding in room 415. Patient's alert and oriented x3 on 2 L nasal cannula satting 98%. Patient was seen resting in the bed. As per RN, patient has not been eating. He is very hard to be aroused. We will order some labs. Chest x-ray was ordered as well. Was positive for leukocytosis and patient will be placed on Rocephin 2 g daily. Urine culture to be sent to lab. We will consult speech for swallow eval. PT and case management on case already. Patient will receive 4 g of magnesium and 40 mEq of potassium. At this moment pending further recommendation/plan from machine bander and cellophaner helper. Home medications were reconciled by PROGRAM FACILITATOR. We will continue to monitor patient in the meantime. Kenziem. labs 03/19 patient was seen by nurse practitioner and physician during rounding in room 415. Patient's urine culture came back positive for Kluyvera Ascorbata. Bacteria sensitive to Bactrim. During hospitalization patient we will continue to be on Zosyn. WBC is trending down today is 7.1. Procalcitonin positive 3.85. Chest x-ray showed normal single-view. Patient's CK is 288 which means patient's rhabdomyolysis. At this moment we will continue to give patient fluids. At this moment I am still pending machine bander and cellophaner helper recommendations. Patient was evaluated by the speech and pass the swallow test. As per PT and case management patient will go to [place] [facility] once medically stable. We will continue to monitor patient in the meantime. A.m. labs. 03/20 patient was seen by nurse practitioner and physician during rounding in room 415. Patient is alert oriented x4 on 2 L nasal cannula at this moment. Patient's sugar has dropped down in the middle of the night down to 46 and morning sugar was 190 repeated to 80. As per machine bander and cellophaner helper patient will be started on Lantus 15 units daily and adjust for fasting glucose. Start regular insulin 5 units 3 times a day before meals and adjust for post prandial glucose. Continue low sliding scale insulin. Glucose monitor q.6 hours. Once patient will be discharged home patient will need decrease Tresiba to 13 units daily same as Humalog 5 units t.i.d. before meals and majora 2.5 mg weekly and resume other medications. Patient to follow up outpatient with machine bander and cellophaner helper Dr. Raj deras. Final urine culture grew Kluyvera Ascorbata. Bacteria sensitive to Bactrim. Once patient will be medically cleared patient will be discharged to [place] [facility]. We will continue to monitor patient in the meantime. A.m. labs.] 03/21 patient is seen and examined at bedside, discussed with the RN, no acute events overnight, possible discharge to assisted living today. Paperwork done. REVIEW OF SYSTEMS CONSTITUTIONAL: Denies fevers, chills, or night sweats. No unintentional weight loss reported. NEUROLOGICAL: Complained of generalized body weakness and fatigue Denies headache, amaurosis fugax, sensory deficit, vertigo/spinning sensation, gait abnormalities, or tremors. ENT: No hearing loss, otalgia, otorrhea, rhinitis, rhinorrhea, hoarseness, or sore throat. CARDIOVASCULAR: Denies any exertional angina, dyspnea on exertion, orthopnea, paroxysmal nocturnal dyspnea, palpitations, life-threatening arrhythmias, claudication. PULMONARY: , cough, phlegm/sputum, hemoptysis, pleuritic chest pain. Complains of minimal shortness of breaths SLEEP: Denies morning headaches, daytime somnolence or napping. Denies difficulty falling asleep, staying asleep, waking from sleep. Denies knowledge of snoring. GASTROINTESTINAL: Denies any type of dysphagia to either liquids or solids. Denies nausea, vomiting, pyrosis, early satiety, abdominal pain, diarrhea, constipation, or changes in stool consistency or caliber. Denies coffee-ground emesis, hematemesis, hematochezia, or melanotic stools. GENITOURINARY: Denies frequency, urgency, nocturia, hematuria or incontinence (Storage/Irritative symptoms.) Low urinary stream, straining to void, urinary intermittency or hesitancy, splitting of the voiding stream, terminal dribbling. ENDOCRINOLOGIC: Denies polyuria, polydipsia, polyphagia or heat/cold intolerances. HEMATOLOGIC: Denies thrombophilia/previous clots, or coagulopathy/bleeding disorders. ONCOLOGIC: Denies personal history of malignancy. DERMATOLOGIC: Denies rashes or pruritus. PSYCHIATRIC: Denies any suicidal or homicidal ideation. Denies hallucinations. PHYSICAL EXAM GENERAL APPEARANCE: The patient is drowsy but easily arousable and oriented, in no acute cardiopulmonary distress. Neurological: Right-sided flaccidity and speech impairment 2/2 history of stroke HEENT: Face is symmetric. Pupils are equal and reactive. Extraocular movements are intact. NECK: Supple. No JVD. No thyromegaly. No submental, submandibular, pre- /postauricular, occipital or supraclavicular lymphadenopathy. CHEST: Normal chest expansion. No Telemetry. LUNGS: Absence of any rales, rhonchi or any wheezing. CARDIOVASCULAR: Regular. S1 and S2 normal. No appreciable rubs, murmurs or gallops. ABDOMEN: Soft, nontender, and nondistended. There is no rebound, voluntary guarding, or rigidity. : Deferred. No Rinaldi. EXTREMITIES:Right foot drop and right upper arm contracted SKIN: No skin breakdown. Vital Signs (last 8hr) Date Time Temp Pulse Resp B/P (MAP) Pulse Ox O2 Delivery O2 Flow Rate FiO2 03/21/25 11:49 98.1 62 20 104/55 92 Room Air 03/21/25 07:47 98.4 70 16 110/60 98 Room Air 21 03/21/25 07:43 Room Air* 0 21 LABS: Laboratory: Test 03/21/25 11:17 03/21/25 06:35 Range/Units Whole Blood Glucose 336 #H 70-110 MG/DL Bedside Glucose Comment Notified Nurse White Blood Count 6.5 4.8-10.8 K/uL Red Blood Count 3.99 L 4.00-5.50 MIL/uL Hemoglobin 11.8 L 12.0-16.0 g/dL Hematocrit 35.7 L 36-48 % Mean Corpuscular Volume 89.5 79-99 fL Mean Corpuscular Hemoglobin 29.6 27.0-33.0 pg Mean Corpuscular Hemoglobin Concent 33.1 32.0-36.0 g/dL Red Cell Distribution Width 15.7 H 11.0-15.5 % Platelet Count 152 130-400 K/uL Mean Platelet Volume 11.9 H 7.5-10.5 fL Immature Granulocyte % (Auto) 0.3 0-1 % Neutrophils (%) (Auto) 60.7 40.0-77.0 % Lymphocytes (%) (Auto) 16.4 L 21.0-51.0 % Monocytes (%) (Auto) 12.5 3.0-13.0 % Eosinophils (%) (Auto) 9.6 H 0.0-8.0 % Basophils (%) (Auto) 0.5 0.0-5.0 % Neutrophils # (Auto) 4.0 1.8-7.7 K/uL Lymphocytes # (Auto) 1.1 1.0-4.8 K/uL Monocytes # (Auto) 0.8 0.1-1.0 K/uL Eosinophils # (Auto) 0.63 0.00-0.70 K/uL Basophils # (Auto) 0.03 0.00-0.20 K/uL Absolute Immature Granulocyte (auto 0.02 0-1 K/uL Nucleated Red Blood Cells 0.0 0.0-0.19 % Sodium Level 137 136-145 mmol/L Potassium Level 4.3 3.5-5.1 mmol/L Chloride Level 104 101-111 mmol/L Carbon Dioxide Level 24 21-32 mmol/L Blood Urea Nitrogen 15 7-18 mg/dL Creatinine 0.9 0.5-1.0 mg/dL Glomerular Filtration Rate Calc 68 >90 mL/min Random Glucose 108 H 70-105 mg/dL Total Calcium 8.3 L 8.5-10.1 mg/dL Magnesium Level 2.00 1.80-2.40 mg/dL Total Bilirubin 0.5 0.2-1.0 mg/dL Aspartate Amino Transf (AST/SGOT) 17 10-37 U/L Alanine Aminotransferase (ALT/SGPT) 9 L 12-78 U/L Alkaline Phosphatase 92 50-136 U/L Total Creatine Kinase 82 # 21-232 U/L Total Protein 6.6 6.0-8.3 g/dL Albumin 2.6 L 3.5-5.0 g/dL Current Medications Medications (Trade) Dose Ordered Sig/Angelica Route PRN Reason Start Time Stop Time Status Last Admin Dose Admin Acetaminophen (TYLenol 325MG TAB) 650 mg Q4H PRN PO MILD PAIN (1-3) 03/17/25 19:30 04/16/25 19:29 Acetaminophen (TYLenol 325MG TAB) 650 mg Q6H PRN PO TEMPERATURE GREATER THAN 101.5 03/17/25 19:30 04/16/25 19:29 Amlodipine Besylate (NorvASC 5MG TAB) 5 mg DAILY PO 03/18/25 09:00 04/17/25 08:59 03/21/25 08:00 5 MG Atorvastatin Calcium (LIPItor 40MG) 40 mg HS PO 03/18/25 21:00 04/17/25 20:59 03/20/25 21:13 40 MG Ceftriaxone Sodium (Rocephin 2gm Inj) 2 gm Q24H IVPB 03/18/25 07:30 03/19/25 10:30 DC 03/19/25 06:26 2 GM Clopidogrel Bisulfate (plaVIX 75MG) 75 mg DAILY PO 03/18/25 09:00 04/17/25 08:59 03/21/25 08:00 75 MG Dextrose 1,000 ml @ 0 mls/hr Q0M IV 03/17/25 17:30 03/18/25 08:37 DC 03/18/25 02:30 80 MLS/HR Dextrose (D50w) 50 ml AD PRN IV HYPOGLYCEMIA PROTOCOL 03/17/25 19:30 04/16/25 19:29 03/20/25 00:18 50 ML Famotidine (Pepcid 20mg Tab) 20 mg DAILY PO 03/18/25 09:00 04/17/25 08:59 03/21/25 08:00 20 MG Gabapentin (NEURontin 100 mg CAP) 100 mg TID PO 03/18/25 09:00 04/17/25 08:59 03/21/25 08:06 100 MG Glucagon (Glucagon 1mg Kit) 1 mg AD PRN IM HYPOGLYCEMIA PROTOCOL 03/17/25 19:30 04/16/25 19:29 Home Med (Home Medication) (Levocetirizine Dihydrochloride 5MG TAB) HS PO 03/18/25 21:00 04/17/25 20:59 Hydrochlorothiazide (hydroCHLOROthiazide 25MG) 12.5 mg DAILY PO 03/18/25 09:00 04/17/25 08:59 03/21/25 07:59 12.5 MG Insulin Glargine (LANtus 100 UNITS/ML 10 ML VIAL) 10 units DAILY SQ 03/20/25 09:00 04/19/25 08:59 03/21/25 08:10 10 UNITS Insulin Glargine (LANtus 100 UNITS/ML 10 ML VIAL) 15 units DAILY SQ 03/19/25 09:00 03/20/25 07:24 DC 03/19/25 08:37 15 UNITS Insulin Human Regular (humuLIN R 100 UNIT/ML 3ML) 5 unit TIDAC SQ 03/19/25 17:00 04/18/25 16:59 03/20/25 16:33 5 UNIT Insulin Human Regular (humuLIN R 100 UNIT/ML 3ML) INSULIN SLIDING SCAL... ACHS SQ 03/18/25 17:00 04/17/25 16:59 03/21/25 11:54 7 UNIT Levothyroxine Sodium (SYNTHroid 50MCG TAB) 50 mcg SYN PO 03/19/25 06:30 04/18/25 06:29 03/21/25 06:17 50 MCG Losartan Potassium (CozAAR 100MG TAB) 100 mg DAILY PO 03/18/25 09:00 04/17/25 08:59 03/21/25 08:00 100 MG Magnesium Sulfate 50 ml @ 0 mls/hr PROTOCOL PRN IV OTHER [SEE ORDER COMMENTS] 03/17/25 19:30 04/16/25 19:29 03/18/25 08:43 25 MLS/HR Montelukast Sodium (SinguLAIR) 10 mg DAILY PO 03/18/25 09:00 04/17/25 08:59 03/21/25 07:59 10 MG Ondansetron HCl (zoFRAN 4MG INJ) 4 mg Q6H PRN IV NAUSEA/VOMITING 03/17/25 19:30 04/16/25 19:29 Pharmacy Profile Note (Lace Assessment) 1 each AD MISC 03/18/25 12:30 03/18/25 12:23 DC Piperacillin Sod/ Tazobactam Sod (Zosyn 3.375gm+NS 50ml) 3.375 gm Q8H IVPB 03/19/25 10:30 03/29/25 10:29 03/21/25 09:41 3.375 GM Potassium Chloride 100 ml @ 100 mls/hr AD PRN IV POTASSIUM PROTOCOL 03/17/25 19:30 04/16/25 19:29 03/18/25 03:07 100 MLS/HR Potassium Chloride (K-Dur/Klor-Con 20meq) 20 meq AD PRN PO POTASSIUM PROTOCOL 03/17/25 19:30 04/16/25 19:29 03/18/25 02:37 20 MEQ Potassium Chloride (KCl 10% Elixir 20meq/15ml) 20 meq AD PRN PO POTASSIUM PROTOCOL 03/17/25 19:30 04/16/25 19:29 Sodium Chloride (NS 50ml) 50 ml AD IV 03/19/25 11:00 03/19/25 10:30 DC DIAGNOSTICS / RADIOLOGY: [ ] ASSESSMENT: Acute hypoxic respiratory failure POA Persistent hypoglycemia with uncontrolled Diabetes type 2 POA Mild Acute metabolic encephalopathy POA Uncontrolled diabetes type 2 POA Acute on chronic anemia POA Debility POA Chronic kidney disease stage II POA Morbid obesity POA Obstructive sleep apnea not on CPAP therapy POA Uncontrolled Hypertension POA Acute complicated cystitis POA Electrolyte imbalance hyponatremia Na 132 hypomagnesemia mg 1.3 hypokalemia K3.6 POA Moderate severe malnutrition POA Hyperlipidemia POA Hypothyroidism POA Leukocytosis 11.9 POA History of CVA with right sided flaccidity and mild dysarthria POA PLAN: Patient is alert oriented x4 on 2 L nasal cannula at this moment. Patient's sugar has dropped down in the middle of the night down to 46 and morning sugar was 190 repeated to 80. As per machine bander and cellophaner helper patient will be started on Lantus 15 units daily and adjust for fasting glucose. Start regular insulin 5 units 3 times a day before meals and adjust for post prandial glucose. Continue low sliding scale insulin. Glucose monitor q.6 hours. Once patient will be discharged home patient will need decrease Tresiba to 13 units daily same as Humalog 5 units t.i.d. before meals and majora 2.5 mg weekly and resume other medications. Patient to follow up outpatient with machine bander and cellophaner helper . Once patient will be medically cleared patient will be discharged to [place]. We will continue to monitor patient in the meantime. A.m. labs. Patient's urine culture came back positive for Kluyvera Ascorbata. Bacteria sensitive to Bactrim. Chest x-ray showed normal single-view. Patient's CK is 288 which means patient's rhabdomyolysis. At this moment we will continue to give patient fluids. Continue patient in medical telemetry Continue D10 at 80 mL/hour blood sugar support Continue famotidine 20 mg p.o. daily for GI prophylaxis We will replace electrolytes as needed per protocol We will request for glucometer q.2 hours x3 with hypoglycemia protocol We will add prn medication for fever,pain,cough , nausea and vomiting Fall precautions Request for neuro check q.4 hours per nursing Further orders to follow depending on above results Case discussed with attending physician and came up with above treatment and plan of care. YOLANDE BOWEN MD Mar 21, 2025 12:57
--- NOTE | 2025-03-21 12:58 | NUR ---
Report given to Myrna castro [place]. Also reported that the patient will be going by EMS.
--- NOTE | 2025-03-21 18:24 | NUR ---
SPEECH NOTE: FOLLOW UP COOLING PIPE INSPECTOR arrived to patient's room. As per patient, she reports no s/s of aspiration with diet recommendations of soft and bite sized solids, thin liquids. Pt was getting ready to leave with EMS. All questions answered at this time. Addendum: 03/21/[address] [facility] Amended: Links added.
--- NOTE | 2025-03-21 18:31 | NUR ---
EMS has transported the patiant back to [place]
--- NOTE | 2025-03-21 19:47 | PN ---
Endocrinology progress note DOS:03/21/25 subjective: Home diabetic regimen: tresiba 20 units daily, humalog 5 units tid before meals, mounjaro 2.5 mg weekly, metformin 500 mg bid Hba1c 8.2% reports that he follows with clay thrower dr. rivera for dm-2 management. he has dm-2 for many years. patient reports that he started having hypoglycemia after started on mounjaro. lowest glucose was 40 mg/dl at home and denies any seizures. REVIEW OF SYSTEMS CONSTITUTIONAL: Denies fevers, chills, or night sweats. No unintentional weight loss reported. NEUROLOGICAL: Complained of generalized body weakness and fatigue Denies headache, amaurosis fugax, sensory deficit, vertigo/spinning sensation, gait abnormalities, or tremors. ENT: No hearing loss, otalgia, otorrhea, rhinitis, rhinorrhea, hoarseness, or sore throat. CARDIOVASCULAR: Denies any exertional angina, dyspnea on exertion, orthopnea, paroxysmal nocturnal dyspnea, palpitations, life-threatening arrhythmias, claudication. PULMONARY: Denies any shortness of breath, cough, phlegm/sputum, hemoptysis, pleuritic chest pain. SLEEP: Denies morning headaches, daytime somnolence or napping. Denies difficulty falling asleep, staying asleep, waking from sleep. Denies knowledge of snoring. GASTROINTESTINAL: Denies any type of dysphagia to either liquids or solids. Denies nausea, vomiting, pyrosis, early satiety, abdominal pain, diarrhea, constipation, or changes in stool consistency or caliber. Denies coffee-ground emesis, hematemesis, hematochezia, or melanotic stools. GENITOURINARY: Denies frequency, urgency, nocturia, hematuria or incontinence (Storage/Irritative symptoms.) Low urinary stream, straining to void, urinary intermittency or hesitancy, splitting of the voiding stream, terminal dribbling. ENDOCRINOLOGIC: Denies polyuria, polydipsia, polyphagia or heat/cold intolerances. HEMATOLOGIC: Denies thrombophilia/previous clots, or coagulopathy/bleeding disorders. ONCOLOGIC: Denies personal history of malignancy. DERMATOLOGIC: Denies rashes or pruritus. PSYCHIATRIC: Denies any suicidal or homicidal ideation. Denies hallucinations. PAST MEDICAL HISTORY: [ Diabetes type 2, hypertension, morbid obesity, hyperlipidemia, hypothyroidism, obstructive sleep apnea not on CPAP, coronary artery disease and stroke with right-sided weakness ] PAST SURGICAL HISTORY: [ x2 and left knee surgery ] PAST SOCIAL HISTORY: [Patient is a resident of assisted living. Patient denies alcohol cigarette and recreational drug use ] FAMILY HISTORY: [ Noncontributory ] Coded Allergies: No Known Allergies (Unverified Allergy, Unknown, 02/23/24) ASSESSMENT: fasting hypoglycemia at home due to tresiba insulin. hypoglycemia resolved and glucose are improving uncontrolled Diabetes type 2 POA Home diabetic regimen: tresiba 20 units daily, humalog 5 units tid before meals, mounjaro 2.5 mg weekly, metformin 500 mg bid Hba1c 8.2% reports that he follows with clay thrower dr. rivera for dm-2 management. he has dm-2 for many years. patient reports that he started having hypoglycemia after started on mounjaro. lowest glucose was 40 mg/dl at home and denies any seizures. Mild Acute metabolic encephalopathy POA improved Hypothyroidism POA on levothyroxine 50 mcg daily. Acute on chronic anemia POA Debility POA Chronic kidney disease stage II POA Morbid obesity POA Obstructive sleep apnea not on CPAP therapy POA Hypertension POA Hyperlipidemia POA History of CVA with right sided flaccidity and mild dysarthria POA PLAN: continue Lantus 10 units daily and adjust for fasting glucose. continue Regular insulin 5 units three times before meals and adjust for post- prandial glucose. Continue low dose sliding scale insulin. Monitor glucose q x 6 hourly. Continue carb consistent diet. Keep glucose less than 180 mg/dl. Patient will need to decrease tersiba to 13 units daily, same humalog 5 units tid before meals, mounjaro 2.5 mg weekly and resume other home meds. follow with endocrinology dr. rivera. Vitals/Labs Vital Signs Date Time Temp Pulse Resp B/P (MAP) Pulse Ox O2 Delivery O2 Flow Rate FiO2 03/21/25 11:49 98.1 62 20 104/55 92 Room Air 03/21/25 07:47 21 03/21/25 07:43 0 Laboratory Tests 03/21/25 06:35 Medications Current Medications Dextrose 1,000 ml @ 0 mls/hr Q0M IV Last administered on 03/18/25at 02:30; Start 03/17/25 at 17:30; Stop 03/18/25 at 08:37; Status DC Acetaminophen 650 mg Q6H PRN PO; Start 03/17/25 at 19:30; Stop 04/16/25 at 19:29 Acetaminophen 650 mg Q4H PRN PO; Start 03/17/25 at 19:30; Stop 04/16/25 at 19:29 Ondansetron HCl 4 mg Q6H PRN IV; Start 03/17/25 at 19:30; Stop 04/16/25 at 19:29 Famotidine 20 mg DAILY PO Last administered on 03/21/25at 08:00; Start 03/18/25 at 09:00; Stop 04/17/25 at 08:59 Dextrose 50 ml AD PRN IV Last administered on 03/20/25at 00:18; Start 03/17/25 at 19:30; Stop 04/16/25 at 19:29 Glucagon 1 mg AD PRN IM; Start 03/17/25 at 19:30; Stop 04/16/25 at 19:29 Magnesium Sulfate 50 ml @ 0 mls/hr PROTOCOL PRN IV Last administered on 03/18/25at 08:43; Start 03/17/25 at 19:30; Stop 04/16/25 at 19:29 Potassium Chloride 100 ml @ 100 mls/hr AD PRN IV Last administered on 03/18/25at 03:07; Start 03/17/25 at 19:30; Stop 04/16/25 at 19:29 Potassium Chloride 20 meq AD PRN PO; Start 03/17/25 at 19:30; Stop 04/16/25 at 19:29 Potassium Chloride 20 meq AD PRN PO Last administered on 03/18/25at 02:37; Start 03/17/25 at 19:30; Stop 04/16/25 at 19:29 Potassium Chloride 40 meq ONCE ONCE PO Last administered on 03/18/25at 08:41; Start 03/18/25 at 07:30; Stop 03/18/25 at 07:31; Status DC Magnesium Sulfate 4 gm ONCE ONCE IV; Start 03/18/25 at 07:30; Stop 03/18/25 at 07:31; Status DC Amlodipine Besylate 5 mg DAILY PO Last administered on 03/21/25at 08:00; Start 03/18/25 at 09:00; Stop 04/17/25 at 08:59 Atorvastatin Calcium 40 mg HS PO Last administered on 03/20/25at 21:13; Start 03/18/25 at 21:00; Stop 04/17/25 at 20:59 Clopidogrel Bisulfate 75 mg DAILY PO Last administered on 03/21/25at 08:00; Start 03/18/25 at 09:00; Stop 04/17/25 at 08:59 Gabapentin 100 mg TID PO Last administered on 03/21/25at 13:17; Start 03/18/25 at 09:00; Stop 04/17/25 at 08:59 Montelukast Sodium 10 mg DAILY PO Last administered on 03/21/25at 07:59; Start 03/18/25 at 09:00; Stop 04/17/25 at 08:59 Home Med (Levocetirizine Dihydrochloride 5MG TAB) HS PO; Start 03/18/25 at 21:00; Stop 04/17/25 at 20:59 Levothyroxine Sodium 50 mcg SYN PO Last administered on 03/21/25at 06:17; Start 03/19/25 at 06:30; Stop 04/18/25 at 06:29 Losartan Potassium 100 mg DAILY PO Last administered on 03/21/25at 08:00; Start 03/18/25 at 09:00; Stop 04/17/25 at 08:59 Hydrochlorothiazide 12.5 mg DAILY PO Last administered on 03/21/25at 07:59; Start 03/18/25 at 09:00; Stop 04/17/25 at 08:59 Ceftriaxone Sodium 2 gm Q24H IVPB Last administered on 03/19/25at 06:26; Start 03/18/25 at 07:30; Stop 03/19/25 at 10:30; Status DC Pharmacy Profile Note 1 each AD MISC; Start 03/18/25 at 12:30; Stop 03/18/25 at 12:23; Status DC Insulin Human Regular INSULIN SLIDING SCAL... ACHS SQ Last administered on 03/21/25at 11:54; Start 03/18/25 at 17:00; Stop 04/17/25 at 16:59 Insulin Glargine 15 units DAILY SQ Last administered on 03/19/25at 08:37; Start 03/19/25 at 09:00; Stop 03/20/25 at 07:24; Status DC Piperacillin Sod/ Tazobactam Sod 3.375 gm Q8H IVPB Last administered on 03/21/25at 09:41; Start 03/19/25 at 10:30; Stop 03/29/25 at 10:29 Sodium Chloride 50 ml AD IV; Start 03/19/25 at 11:00; Stop 03/19/25 at 10:30; Status DC Insulin Human Regular 5 unit TIDAC SQ Last administered on 03/20/25at 16:33; Start 03/19/25 at 17:00; Stop 04/18/25 at 16:59 Insulin Glargine 10 units DAILY SQ Last administered on 03/21/25at 08:10; Start 03/20/25 at 09:00; Stop 04/19/25 at 08:59 DOTTY PERALTA MD Mar 21, 2025 19:47
--- NOTE | 2025-03-22 09:05 | DS ---
Discharge Summary Hospital Course Summary: DATE OF SERVICE 03/21/2025 THE PATIENT INITIALLY ADMITTED TO THE HOSPITAL MARCH 17, 2025 WITH THE FOLLOWING HISTORY OF THE PRESENT ILLNESS: This is a 74 year old female,a resident of [facility] with past medical history of Diabetes type 2, hypertension, morbid obesity, hyperlip idemia, hypothyroidism, obstructive sleep apnea not on CPAP, chrinic kidney disease stage 2 ,anemia ,coronary artery disease and stroke with right sided flaccidity and mild dysarthria who was brought by EMS to the ED for evaluation of low blood sugar.Patient states she has noticed she has been feeling tired,weak and sleepy most of the time and hazardous waste technician checked her blood sugar and it was low.Patient reports she received 5 units of insulin earlier today.En route patient glucose was still low and patient was given D50 reportedly.Upon ER arrival patient's blood sugar was 44 and V/S T98.2,HR91,BP 104/57 Sat 98% RA. Seen and examined patient in the ER drowsy but easily arousable,coherent , follows commands and answers questions appropriately.Patient states she feels hungry now.Patient states she has not been eating much lately she said.Patient denies fever,chills,nausea,vomiting,abdominal pain and dizziness.Labs: WBC 11, with negative left shift of neutrophils 85, hemoglobin 10, hematocrit 34 platele t count 226. Sodium 136, potassium 3.5, chloride 99, BUN 17, creatinine 1, GFR 60 total calcium 8.8 while in the ER patient was started on D10 at 80 mL/hour and current blood sugar is 212 at this time. HOSPITAL COURSE 03/17 This is a 74 year old female,a resident of [facility] with past medical history of Diabetes type 2, hypertension, morbid obesity, hyperlipidemia, hypothyroidism, obstructive sleep apnea not on CPAP, chrinic kidney disease stage 2 ,anemia ,coronary artery disease and stroke with right sided flaccidity and mild dysarthria who was brought by EMS to the ED for evaluation of low blood sugar.Patient states she has noticed she has been feeling tired,weak and sleepy most of the time and hazardous waste technician checked her blood sugar and it was low.Patient reports she received 5 units of insulin earlier today.En route patient glucose was still low and patient was given D50 reportedly.Upon ER arrival patient's blood sugar was 44 and V/S T98.2,HR91,BP 104/57 Sat 98% RA. Seen and examined patient in the ER drowsy but easily arousable,coherent , follows commands and answers questions appropriately.Patient states she feels hungry now.Patient states she has not been eating much lately she said.Patient denies fever,chills,nausea,vomiting,abdominal pain and dizziness.Labs: WBC 11, with negative left shift of neutrophils 85, hemoglobin 10, hematocrit 34 platelet count 226. Sodium 136, potassium 3.5, chloride 99, BUN 17, creatinine 1, GFR 60 total calcium 8.8 while in the ER patient was started on D10 at 80 mL/hour and current blood sugar is 212 at this time. We will admit patient for further medical management. 03/18 patient was seen by nurse practitioner and physician during rounding in room 415. Patient's alert and oriented x3 on 2 L nasal cannula satting 98%. Patient was seen resting in the bed. As per RN, patient has not been eating. He is very hard to be aroused. We will order some labs. Chest x-ray was ordered as well. Was positive for leukocytosis and patient will be placed on Rocephin 2 g daily. Urine culture to be sent to lab. We will consult speech for swallow eval. PT and case management on case already. Patient will receive 4 g of magnesium and 40 mEq of potassium. At this moment pending further recommendation/plan from registered nurse supervisor. Home medications were reconciled by CLUB LOUNGE ATTENDANT. We will continue to monitor patient in the meantime. A.m. labs 03/19 patient was seen by nurse practitioner and physician during rounding in room 415. Patient's urine culture came back positive for Kluyvera Ascorbata. Bacteria sensitive to Bactrim. During hospitalization patient we will continue to be on Zosyn. WBC is trending down today is 7.1. Procalcitonin positive 3.85. Chest x-ray showed normal single-view. Patient's CK is 288 which means patient's rhabdomyolysis. At this moment we will continue to give patient fluids. At this moment I am still pending registered nurse supervisor recommendations. Patient was evaluated by the speech and pass the swallow test. As per PT and case management patient will go to [facility] once medically stable. We will continue to monitor patient in the meantime. A.m. labs. 03/20 patient was seen by nurse practitioner and physician during rounding in room 415. Patient is alert oriented x4 on 2 L nasal cannula at this moment. Patient's sugar has dropped down in the middle of the night down to 46 and morning sugar was 190 repeated to 80. As per registered nurse supervisor patient will be started on Lantus 15 units daily and adjust for fasting glucose. Start regular insulin 5 units 3 times a day before meals and adjust for post prandial glucose. Continue low sliding scale insulin. Glucose monitor q.6 hours. Once patient will be discharged home patient will need decrease Tresiba to 13 units daily same as Humalog 5 units t.i.d. before meals and majora 2.5 mg weekly and resume other medications. Patient to follow up outpatient with registered nurse supervisor . Final urine culture grew Kluyvera Ascorbata. Bacteria sensitive to Bactrim. Once patient will be medically cleared patient will be discharged to [facility]. We will continue to monitor patient in the meantime. A.m. labs.] 03/21 patient is seen and examined at bedside, discussed with the RN, no acute events overnight, possible discharge to assisted living today. Paperwork done. Liquid Chlorine Operator(s): ENDOCRINOLOGY Assessment/Plan: FINAL DIAGNOSIS Acute hypoxic respiratory failure POA Persistent hypoglycemia with uncontrolled Diabetes type 2 POA Mild Acute metabolic encephalopathy POA UTI, POA Uncontrolled diabetes type 2 POA Acute on chronic anemia POA Debility POA Chronic kidney disease stage II POA Morbid obesity POA Obstructive sleep apnea not on CPAP therapy POA Uncontrolled Hypertension POA Acute complicated cystitis POA Electrolyte imbalance hyponatremia Na 132 hypomagnesemia mg 1.3 hypokalemia K3.6 POA Moderate severe malnutrition POA Hyperlipidemia POA Hypothyroidism POA Leukocytosis 11.9 POA History of CVA with right sided flaccidity and mild dysarthria POA Discharge Instructions: Patient to be discharged to assisted living. Follow up with her PCP as an outpatient. Return to hospital if condition changes. Patient agreed with plan and understood the information provided. Home Medications: Reported Medications Sulfamethoxazole/Trimethoprim (Bactrim Ds Tablet) 800 Mg-160 Mg Tablet, 1 TAB PO BID for 7 Days, #14 TAB 0 Refills 03/21/25 Insulin Degludec (Tresiba Flextouch U-100) 100 Unit/Ml (3 Ml) Insuln.pen, 13 UNIT SQ DAILY, SYRINGE 03/21/25 Sulfamethoxazole/Trimethoprim (Bactrim Ds Tablet) 800 Mg-160 Mg Tablet, 1 TAB PO BID for 7 Days, #14 TAB 0 Refills 03/21/25 Levothyroxine Sodium (Levothyroxine) 50 Mcg Capsule, 1 CAP PO DAILY for 30 Days, #30 CAP 0 Refills 03/17/25 Tirzepatide (Mounjaro) 2.5 Mg/0.5 Ml Pen.injctr, 2.5 MG SQ QWEEK 01/25/25 Montelukast Sodium (Montelukast Sodium) 10 Mg Tablet, 1 TAB PO DAILY for 30 Days, #30 TAB 0 Refills 01/25/25 Metformin HCl (Metformin HCl ER) 500 Mg Tab.er.24, 1 TAB PO DAILY for 30 Days, #30 TAB 0 Refills 01/25/25 Losartan/Hydrochlorothiazide (Losartan-Hctz 100-12.5 mg Tab) 100 Mg-12.5 Mg Tablet, 1 TAB PO DAILY for 30 Days, #30 TAB 0 Refills 01/25/25 Levocetirizine Dihydrochloride (Levocetirizine Dihydrochloride) 5 Mg Tablet, 1 TAB PO HS for 30 Days, #30 TAB 0 Refills 01/25/25 Insulin Regular, Human (Humulin R) 100 Unit/Ml Vial, 5 UNITS SQ TIDAC, VIAL 01/25/25 Gabapentin (Gabapentin) 100 Mg Capsule, 1 CAP PO TID for 30 Days, #90 CAP 0 Refills 01/25/25 Clopidogrel Bisulfate (Clopidogrel) 75 Mg Tablet, 1 TAB PO DAILY for 30 Days, #30 TAB 0 Refills 01/25/25 Atorvastatin Calcium (Atorvastatin Calcium) 40 Mg Tablet, 1 TAB PO HS for 30 Days, #30 TAB 0 Refills 01/25/25 Amlodipine Besylate (Amlodipine Besylate) 5 Mg Tablet, 1 TAB PO DAILY for 30 Days, #30 TAB 0 Refills 01/25/25 Discontinued Reported Medications Insulin Degludec (Tresiba Flextouch U-100) 100 Unit/Ml (3 Ml) Insuln.pen, 25 UNIT SQ HS, SYRINGE 01/25/25 Time spent arranging discharge: 31-60 minutes YOLANDE BOWEN MD Mar 22, 2025 09:05
== END 2025-03-21 21:07 | disposition home or self-care (01) | DRG 637 ==
LOC: EDH 16:51 → EDHIP 19:20 → 4CH 03-18 01:21
PROVIDERS: ADMIT Hospitalist; ATTEND Hospitalist
DX: E11.649 Type 2 diabetes mellitus with hypoglycemia without coma (principal); G93.41 Metabolic encephalopathy; J96.01 Acute respiratory failure with hypoxia; E87.1 Hypo-osmolality and hyponatremia; N30.00 Acute cystitis without hematuria; M62.82 Rhabdomyolysis; E11.22 Type 2 diabetes mellitus with diabetic chronic kidney disease; D64.9 Anemia, unspecified; E66.01 Morbid (severe) obesity due to excess calories; G47.33 Obstructive sleep apnea (adult) (pediatric); E03.9 Hypothyroidism, unspecified; E78.00 Pure hypercholesterolemia, unspecified; E83.42 Hypomagnesemia; E87.6 Hypokalemia; I12.9 Hypertensive chronic kidney disease with stage 1 through stage 4 chronic kidney disease, or unspecified chronic kidney disease; N18.2 Chronic kidney disease, stage 2 (mild); Z79.4 Long term (current) use of insulin; Z79.84 Long term (current) use of oral hypoglycemic drugs; Z86.73 Personal history of transient ischemic attack (TIA), and cerebral infarction without residual deficits; Z68.31 Body mass index [BMI] 31.0-31.9, adult
CPT/HCPCS: 36415; 71045; 80048; 80053; 80076; 81001; 82140; 82150; 82550; 82948; 83036; 83605; 83735; 83880; 84145; 84439; 84443; 84481; 85025; 87086; 87186; 92610; 99291; G0378; J0696; J1815; J2543; J3475; J3480; J3490; J7070

== ENCOUNTER 2025-04-12 21:52 | Emergency (ER) | payer OTHER ==
[~2025-04-12] VITALS: Ht 162.6 cm; Wt 81.6 kg
[~2025-04-12 21:52] MED LIST changes: +LEVO50CA5 PO; +SULF1TAB42 PO
[2025-04-12 22:36] LABS: IMMATURE GRANULOCYTE ABSOLUTE 0.02 K/uL (0-1); NUCLEATED RED BLOOD CELLS 0.0 % (0.0-0.19); PLATELET COUNT (AUTO) 201 K/uL (130-400); RED BLOOD CELL COUNT(AUTO) 3.58 MIL/uL (4.00-5.50); RED CELL DISTRIBUTION WIDTH 14.9 % (11.0-15.5); WHITE BLOOD COUNT (AUTO) 5.1 K/uL (4.8-10.8)
[2025-04-12 22:48] LABS: CREATININE 1.0 mg/dL (0.5-1.0); GLOMERULAR FILTR. RATE CALC 59.0 mL/min (>90); GLUCOSE,RANDOM 381.0 mg/dL (70-105); SODIUM SERUM 133.0 mmol/L (136-145); UREA NITROGEN, BLOOD 17.0 mg/dL (7-18)
[2025-04-12 22:53] LABS: ASPARTATE AMINOTRANSFERASE 20.0 U/L (10-37); TOTAL PROTEIN, SERUM 7.4 g/dL (6.0-8.3)
[2025-04-12] MEDS: 0.9%NACL 1000ML 1,000 ML IV ONE (23:32)
--- NOTE | 2025-04-13 01:30 | ERN ---
General Chief Complaint: Hyperglycemia Stated Complaint: HYPERGLYCEMIA, BLOOD SUGAR OF 515 Time Seen by MD: 22:05 Time Seen by Midlevel: 22:05 Source: patient History of Present Illness Initial Comments 75-year-old female coming in from [facility] after she was found to have a sugar of over 500. Patient does report having a history of type 2 diabetes in his currently on insulin. Allergies: Coded Allergies: No Known Allergies (Unverified Allergy, Unknown, 02/23/24) Home Meds Reported Medications Sulfamethoxazole/Trimethoprim (Bactrim Ds Tablet) 800 Mg-160 Mg Tablet, 1 TAB PO BID for 7 Days, #14 TAB 0 Refills 03/21/25 Insulin Degludec (Tresiba Flextouch U-100) 100 Unit/Ml (3 Ml) Insuln.pen, 13 UNIT SQ DAILY, SYRINGE 03/21/25 Sulfamethoxazole/Trimethoprim (Bactrim Ds Tablet) 800 Mg-160 Mg Tablet, 1 TAB PO BID for 7 Days, #14 TAB 0 Refills 03/21/25 Levothyroxine Sodium (Levothyroxine) 50 Mcg Capsule, 1 CAP PO DAILY for 30 Days, #30 CAP 0 Refills 03/17/25 Tirzepatide (Mounjaro) 2.5 Mg/0.5 Ml Pen.injctr, 2.5 MG SQ QWEEK 01/25/25 Montelukast Sodium (Montelukast Sodium) 10 Mg Tablet, 1 TAB PO DAILY for 30 Days, #30 TAB 0 Refills 01/25/25 Metformin HCl (Metformin HCl ER) 500 Mg Tab.er.24, 1 TAB PO DAILY for 30 Days, #30 TAB 0 Refills 01/25/25 Losartan/Hydrochlorothiazide (Losartan-Hctz 100-12.5 mg Tab) 100 Mg-12.5 Mg Tablet, 1 TAB PO DAILY for 30 Days, #30 TAB 0 Refills 01/25/25 Levocetirizine Dihydrochloride (Levocetirizine Dihydrochloride) 5 Mg Tablet, 1 TAB PO HS for 30 Days, #30 TAB 0 Refills 01/25/25 Insulin Regular, Human (Humulin R) 100 Unit/Ml Vial, 5 UNITS SQ TIDAC, VIAL 01/25/25 Gabapentin (Gabapentin) 100 Mg Capsule, 1 CAP PO TID for 30 Days, #90 CAP 0 Refills 01/25/25 Clopidogrel Bisulfate (Clopidogrel) 75 Mg Tablet, 1 TAB PO DAILY for 30 Days, #30 TAB 0 Refills 01/25/25 Atorvastatin Calcium (Atorvastatin Calcium) 40 Mg Tablet, 1 TAB PO HS for 30 Days, #30 TAB 0 Refills 01/25/25 Amlodipine Besylate (Amlodipine Besylate) 5 Mg Tablet, 1 TAB PO DAILY for 30 Days, #30 TAB 0 Refills 01/25/25 Past Medical History Past Medical History: Diabetes-Type II, High Cholesterol, Hypertension Medical History Other: FLACCID HEMIPLEGIA AFFECTING RIGHT SIDE Past Surgical History: Family History Family History: Negative Social History Social History: Negative Female( History) History: Not Applicable ROS Dictation CONSTITUTIONAL: Negative except for HPI HEAD/FACE: Negative except for HPI EENT: Negative except for HPI RESPIRATORY: Negative except for HPI GASTROINTESTINAL/ABDOMINAL: Negative except for HPI GENITOURINARY: Negative except for HPI MUSCULOSKELETAL: Negative except for HPI INTEGUMENTARY: Negative except for HPI NEUROLOGICAL/PSYCH: Negative except for HPI HEMATOLOGIC/LYMPHATIC: Negative except for HPI All Systems Negative, Except as noted above. 13 point review of systems assessed and all negative except for above. Physical Exam Physical Exam Dictation Vital Signs reviewed General Appearance: Alert, oriented x 3, no acute distress, well developed, nourished. Head and Face: non-traumatic. Eyes: PERRL, pink conjunctivas, eyelid no trauma, anterior chamber with arcus senilis. Ears: Pinnas intact and no signs of trauma or erythema ear canals clear and no discharge TM no erythema Nose: No discharge, no bleeding. Oropharynx: Mouth normal, tongue pink, pharynx clear,no erythema, tonsils no exudates, no abscesses noted, mucous membrane moist Neck: Supple, non-tender, no thyromegaly, no masses, no JVD, no bruits Breast:Deferred Chest:No tenderness, no crepitus, no paradoxical movement, no retractions Lungs:Clear, well-ventilated, symmetric, no rales, no wheezing, no rhonchi, no stridor, good breath sounds bilaterally Heart: Regular rate, regular rhythm, no murmur, no gallops Vascular: no peripheral edema, Abdomen: Soft, positive bowel sounds, nondistended, no guarding, nontender, no rebound, no masses no hepatomegaly, no splenomegaly, no Vick's sign, no hernias. Rectal: Deferred Genital: Deferred Neurological: Normal speech, motor function intact, sensory function intact Musculoskeletal: Neck nontender, full range of motion, back nontender, full range of motion, Extremities: nontender, full range of motion Skin: Color pink, dry, no turgor, no rash, no lacerations, no abrasions, no contusions. Lymphatic: Deferred Results Laboratory and Microbiology Lab and Micro Result Laboratory Tests Test 04/12/25 22:26 White Blood Count 5.1 K/uL (4.8-10.8) Red Blood Count 3.58 MIL/uL (4.00-5.50) L Hemoglobin 10.7 g/dL (12.0-16.0) L Hematocrit 33.8 % (36-48) L Mean Corpuscular Volume 94.4 fL (79-99) Mean Corpuscular Hemoglobin 29.9 pg (27.0-33.0) Mean Corpuscular Hemoglobin Concent 31.7 g/dL (32.0-36.0) L Red Cell Distribution Width 14.9 % (11.0-15.5) Platelet Count 201 K/uL (130-400) Mean Platelet Volume 11.3 fL (7.5-10.5) H Immature Granulocyte % (Auto) 0.4 % (0-1) Neutrophils (%) (Auto) 55.7 % (40.0-77.0) Lymphocytes (%) (Auto) 27.5 % (21.0-51.0) Monocytes (%) (Auto) 8.4 % (3.0-13.0) Eosinophils (%) (Auto) 7.4 % (0.0-8.0) Basophils (%) (Auto) 0.6 % (0.0-5.0) Neutrophils # (Auto) 2.9 K/uL (1.8-7.7) Lymphocytes # (Auto) 1.4 K/uL (1.0-4.8) Monocytes # (Auto) 0.4 K/uL (0.1-1.0) Eosinophils # (Auto) 0.38 K/uL (0.00-0.70) Basophils # (Auto) 0.03 K/uL (0.00-0.20) Absolute Immature Granulocyte (auto 0.02 K/uL (0-1) Nucleated Red Blood Cells 0.0 % (0.0-0.19) Sodium Level 133 mmol/L (136-145) L Potassium Level 4.2 mmol/L (3.5-5.1) Chloride Level 97 mmol/L (101-111) L Carbon Dioxide Level 27 mmol/L (21-32) Blood Urea Nitrogen 17 mg/dL (7-18) Creatinine 1.0 mg/dL (0.5-1.0) Glomerular Filtration Rate Calc 59 mL/min (>90) Random Glucose 381 mg/dL (70-105) H Whole Blood Ketones Quantitative 0.2 mmol/L (0.0-0.6) Lactic Acid Level 1.5 mmol/L (0.8-2.5) Total Calcium 8.3 mg/dL (8.5-10.1) L Magnesium Level 1.50 mg/dL (1.80-2.40) L Total Bilirubin 0.4 mg/dL (0.2-1.0) Aspartate Amino Transf (AST/SGOT) 20 U/L (10-37) Alanine Aminotransferase (ALT/SGPT) 36 U/L (12-78) Alkaline Phosphatase 209 U/L (50-136) H Total Protein 7.4 g/dL (6.0-8.3) Albumin 3.3 g/dL (3.5-5.0) L Labs Reviewed?: Yes MDM MDM: Differential diagnosis: Diabetic ketoacidosis, HHS, uncontrolled type 2 diabetes There are no social concerns with this patient. Prescription drug management Prescriptions will include: None Medical management and examination interpretation discussions were had by me with other qualified healthcare professionals as indicated for the patient's care. ED Course Orders Procedure Category Date Status Time Cbc With Differential LAB 04/12/25 Complete 22:08 Comprehensive LAB 04/12/25 Complete Metabolic Panel 22:08 Magnesium LAB 04/12/25 Complete 22:08 Urinalysis Profile LAB 04/12/25 Logged 22:08 Lactic Acid LAB 04/12/25 Complete 22:08 Ketone Blood LAB 04/12/25 Complete Quantitative 22:08 Insulin Regular, PHA 04/12/25 Complete Human 3ml (Humulin R 23:30 0.9%Nacl 1000ml (Ns PHA 04/12/25 Complete 1000ml) 23:30 Bedside Glucose CPOE 04/13/25 Transmitted Fingerstick 00:54 Current Medications Medications (Trade) Dose Ordered Sig/Angelica Route PRN Reason Start Time Stop Time Status Last Admin Dose Admin Insulin Human Regular (humuLIN R 100 UNIT/ML 3ML) 5 unit ONCE ONCE IV 04/12/25 23:30 04/12/25 23:31 DC 04/12/25 23:34 Sodium Chloride 1,000 ml @ 0 mls/hr ONCE ONCE IV 04/12/25 23:30 04/12/25 23:31 DC 04/12/25 23:32 Vital Signs Date Time Temp Pulse Resp B/P (MAP) Pulse Ox O2 Delivery O2 Flow Rate FiO2 04/12/25 21:54 98.1 67 16 122/72 98 0 DX & DISP Disposition: Discharge Departure Impression: Primary Impression: Diabetes mellitus with hyperglycemia Additional Impression: History of asthma Condition: Stable Additional Instructions: Your blood work today revealed a sugar of over 350. You were given IV fluids and IV insulin in the emergency department. Based on your history of asthma you need to stay away from secondhand smoking as discussed in person. Please avoid any exposure to tobacco containing products/vapes. Referrals: LIZBETH MARIE MD (PCP) Time of Disposition: 01:29 I have reviewed the case, and I agree with, Diagnosis and Plan I performed the substantive portion of the visit. I have reviewed and personally made and approve the management plan that is documented in the note by myself or the SY. I acknowledge for responsibility for the patient's management plan. TIGRE WU PAC Apr 13, 2025 01:30
[2025-04-13 01:39] VITALS: BP 122/54; PULSE 64; RESP 16; TEMP 98.1; O2SAT 97
--- NOTE | 2025-04-13 01:42 | NUR ---
report called to Gely at [facility]
--- NOTE | 2025-04-13 01:43 | NUR ---
[facility] CALLED FOR TRANSPORT BACK TO [facility]
== END 2025-04-13 01:53 ==
LOC: EDH 21:52
DX: E11.65 Type 2 diabetes mellitus with hyperglycemia (principal); J45.909 Unspecified asthma, uncomplicated; I10 Essential (primary) hypertension; E78.00 Pure hypercholesterolemia, unspecified; Z79.02 Long term (current) use of antithrombotics/antiplatelets; Z79.4 Long term (current) use of insulin; Z79.84 Long term (current) use of oral hypoglycemic drugs; Z79.85 Long-term (current) use of injectable non-insulin antidiabetic drugs; Z79.890 Hormone replacement therapy; Z79.899 Other long term (current) drug therapy
CPT/HCPCS: 99283; 96374; 96361; 83735; 80053; 85025; 82948; 83605; 82010; 36415; J1815; J7030